=== PATIENT | female | born 1950 | race African-American/Black ===

== ENCOUNTER 2016-10-10 14:38 | Inpatient (IN) | payer OTHER ==
[2016-10-10] MEDS ORDERED: ALBUTEROL SO4 2.5/IPRATROPIUM 0.5 INH SOL 3 ML VIAL.NEB. NEB ONE (15:01)
[2016-10-10] MEDS ORDERED: methylPREDNISolone NA SUCC 125 MG/2 ML VIAL IVPB ONE (15:11)
[2016-10-10] MEDS ORDERED: ALBUTEROL SO4 0.083% IH SOL 2.5 MG/3 ML VIAL.NEB. NEB ONE ×2 (15:11→15:25)
[2016-10-10] MEDS ORDERED: methylPREDNISolone NA SUCC 125 MG/2 ML VIAL ONE (15:23)
[2016-10-10 15:49] LABS: BASOPHIL 0.6 % (0-2.0); EOSINOPHIL 0.4 % (0-4.5); MCHC 31.2 g/dl (32.0-36.0); MEAN PLT VOLUME 8.6 fl (7.5-11.1); NEUTROPHILS 85.2 % (42.8-82.8); PLATELET COUNT 299 K/MM3 (134-434); RDW 16.7 % (11.6-15.6); WHITE BLOOD COUNT 10.2 K/mm3 (4.0-10.0)
[2016-10-10 16:00] LABS: INR 1.2 (0.82-1.09); PROTHROMBIN TIME (PATIENT) 13.2 SEC (9.98-11.88)
[2016-10-10 16:09] LABS: ARTERIAL BLD GAS O2 SATURATION 98.4 % (90-98.9); ARTERIAL BLOOD GAS BASE EXCESS -0.2 meq/l (-2-2); ARTERIAL BLOOD GAS HCO3 23.2 meq/L (22-26); ARTERIAL BLOOD GAS pH 7.43 (7.35-7.45)
[2016-10-10 16:10] LABS: ALLENS TEST POSITIVE; METHEMOGLOBIN 0.5 % (0.4-1.5)
[2016-10-10 16:11] LABS: ART PUNCT SITE RIGHT RADIAL; LPM/O2% 2 LPM; PT. ON O2? YES; TYPE OF O2 NASAL CANNULA
[2016-10-10 16:14] LABS: ALBUMIN 3.7 g/dl (3.4-5.0); ALK PHOS 136 U/L (45-117); ANION GAP 9 (8-16); BILIRUBIN,TOTAL 0.3 mg/dL (0.2-1.0); CALCIUM 9.4 mg/dL (8.5-10.1); CO2 28 mmol/L (21-32); CREATININE 1.5 mg/dL (0.55-1.02); GLUCOSE,RANDOM 110 mg/dL (74-106); SGOT/AST 22 U/L (15-37); SGPT/ALT 20 U/L (12-78)
[2016-10-10] MEDS ORDERED: SODIUM CHLORIDE 1,000 ML IV STA (17:21)
--- NOTE | 2016-10-10 18:10 | PDOC ---
History of Present Illness - General History Source: Patient Exam Limitations: No Limitations - History of Present Illness Initial Comments: 10/10/16 18:12 The patient is a 66 year old female with a significant past medical history of lung cancer (RUL), diabetes, and hypertension, presenting to the Emergency Department with shortness of breath. The patient reports that she was seeing Dr. Contreras in respiratory today when her O2 sats dropped into the 60s and was sent down to the ER. The patient reports that she was first diagnosed with lung cancer in 2013, and had chemotherapy and radiation. 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 She reports that this is her third diagnosis, which is being treated with immunotherapy every two weeks since July. The patient states that she has not felt well all week, and states that she cannot walk around her house without being short of breath. She admits to using albuterol, advair, and a nebulizer at home to help her breath. She admits to a cough. The patient denies chest pain, or palpitations. Patient denies fever, or chills. Patient denies lightheadedness, or headache. <Adeola Healy - Last Filed: 10/10/16 18:18> <Delonte Norton - Last Filed: 10/10/16 18:38> - General Chief Complaint: Respiratory Stated Complaint: SOB Time Seen by Provider: 10/10/16 15:10 Past History <Adeola Healy - Last Filed: 10/10/16 18:18> - Past Medical History Cancer: Yes (RUL, CHEMO/RADIATION COMPLETED SPRING 2014.) Diabetes: Yes HTN: Yes - Immunization History Td Vaccination: Yes Immunization Up to Date: Yes - Psycho/Social/Smoking Cessation Hx Anxiety: No Suicidal Ideation: No Smoking History: Former smoker Have you smoked in the past 12 months: No If you are a former smoker, when did you quit?: 1991 Information on smoking cessation initiated: No Hx Alcohol Use: No Drug/Substance Use Hx: No Substance Use Type: None <Delonte Norton - Last Filed: 10/10/16 18:38> - Past Medical History Allergies/Adverse Reactions: Allergies Allergy/AdvReac Type Severity Reaction Status Date / Time No Known Allergies Allergy Verified 09/26/14 10:39 Home Medications: Ambulatory Orders Albuterol Sulfate Inhaler - [Ventolin HFA Inhaler -] 1 - 2 inh PO Q4H 09/26/14 Sitagliptin Phosphate [Januvia] 100 mg PO DAILY 09/26/14 Spironolactone 25 mg PO DAILY 09/26/14 Verapamil HCl 240 mg PO DAILY 09/26/14 Acetaminophen W/ Codeine #3 [Tylenol # 3 -] 1 tab PO PRN 10/10/16 Aspirin [ASA -] 81 mg PO DAILY 10/10/16 Atorvastatin Ca [Lipitor] 10 mg PO HS 10/10/16 Gabapentin 300 mg PO DAILY 10/10/16 Losartan Potassium 25 mg PO DAILY 10/10/16 Montelukast Na [Singulair -] 10 mg PO HS 10/10/16 Ondansetron [Zofran -] 8 mg PO PRN 10/10/16 Salmeterol/Fluticasone [Advair 500Mcg/50Mcg -] 1 inh IH BID 10/10/16 Review of Systems - Review of Systems Able to Perform ROS?: Yes Comments:: 10/10/16 18:12 GENERAL/CONSTITUTIONAL: No fever or chills. No weakness. HEAD, EYES, EARS, NOSE AND THROAT: No change in vision. No ear pain or discharge. No sore throat. CARDIOVASCULAR: No chest pain. RESPIRATORY: + shortness of breath. + cough. + dyspnea on exertion. No hemoptysis. GASTROINTESTINAL: No nausea, vomiting, diarrhea or constipation. GENITOURINARY: No dysuria, frequency, or change in urination. MUSCULOSKELETAL: No joint or muscle swelling or pain. No neck or back pain. SKIN: No rash NEUROLOGIC: No headache, vertigo, loss of consciousness, or change in strength/ sensation. ENDOCRINE: No increased thirst. No abnormal weight change. HEMATOLOGIC/LYMPHATIC: No anemia, easy bleeding, or history of blood clots. ALLERGIC/IMMUNOLOGIC: No hives or skin allergy. <Adeola Healy - Last Filed: 10/10/16 18:18> *Physical Exam - Vital Signs Last Vital Signs Temp Pulse Resp BP Pulse Ox 98.6 F 91 H 20 122/89 99 10/10/16 14:44 10/10/16 16:26 10/10/16 16:26 10/10/16 16:26 10/10/16 16:26 - Physical Exam Comments: 10/10/16 18:12 GENERAL: Appears comfortable but short of breath, not conversationally dyspneic. Awake, alert, and fully oriented HEAD: No signs of trauma EYES: PERRLA, EOMI, sclera anicteric, conjunctiva clear ENT: Auricles normal inspection, hearing grossly normal, nares patent, oropharynx clear without exudates. Moist mucosa NECK: Normal ROM, supple, no lymphadenopathy, JVD, or masses LUNGS: Inspiratory and expiratory wheezing throughout bilaterally. Clear to auscultation bilaterally. No crackles HEART: Regular rate and rhythm, normal S1 and S2, no murmurs, rubs or gallops ABDOMEN: Soft, nontender, normoactive bowel sounds. No guarding, no rebound. No masses EXTREMITIES: Normal range of motion, no edema. No clubbing or cyanosis. No cords, erythema, or tenderness NEUROLOGICAL: Cranial nerves II through XII grossly intact. Normal speech, normal gait SKIN: Warm, Dry, normal turgor, no rashes or lesions noted. <Adeola Healy - Last Filed: 10/10/16 18:18> - Vital Signs Last Vital Signs Temp Pulse Resp BP Pulse Ox 98.6 F 91 H 20 122/89 99 10/10/16 14:44 10/10/16 16:26 10/10/16 16:26 10/10/16 16:26 10/10/16 16:26 <Delonte Norton - Last Filed: 10/10/16 18:38> ED Treatment Course - LABORATORY CBC & Chemistry Diagram: 10/10/16 15:41 10/10/16 15:41 - ADDITIONAL ORDERS Additional order review: Laboratory Results 10/10/16 10/10/16 10/10/16 16:02 15:41 15:41 INR 1.20 H Puncture Site Right radial ABG pH 7.43 ABG pCO2 at Pt Temp 35.6 ABG pO2 at Pt Temp 101.0 H ABG HCO3 23.2 ABG O2 Sat (Measured) 98.4 ABG O2 Content 15.6 ABG Base Excess -0.2 Yehuda Test Positive Carboxyhemoglobin 1.8 Methemoglobin 0.5 O2 Delivery Device Nasal cannula Oxygen Flow Rate 2 lpm PEEP 0.0 Sodium 141 Potassium 4.1 Chloride 104 Carbon Dioxide 28 Anion Gap 9 BUN 39 H Creatinine 1.5 H Creat Clearance w eGFR 34.64 Random Glucose 110 H Calcium 9.4 Total Bilirubin 0.3 D AST 22 D ALT 20 D Alkaline Phosphatase 136 H D Total Protein 7.0 Albumin 3.7 D 10/10/16 15:41 RBC 4.72 MCV 77.0 L MCHC 31.2 L RDW 16.7 H MPV 8.6 Neutrophils % 85.2 H Lymphocytes % 3.8 L D Monocytes % 10.0 Eosinophils % 0.4 D Basophils % 0.6 D - RADIOLOGY Radiograph Interpretation: 10/10/16 18:[address] As reviewed by Dr. Beto Sherman IMPRESSION: No evidence of PE Findings consistent with recurrent malignancy within the right lung apex with extensive pulmonary metastases throughout both lungs. There is also a large right pleural effusion. - Medications Given in the ED: ED Medications Discontinued Medications Generic Name Dose Route Start Last Admin Trade Name Zackaryq PRN Reason Stop Dose Admin Albuterol Sulfate 2 amp 10/10/16 15:11 10/10/16 15:20 Ventolin 0.083% Nebulizer Soln - NEB 10/10/16 15:12 2 amp ONCE ONE Administration Methylprednisolone Sodium Succinate 125 mg 10/10/16 15:11 10/10/16 15:39 Solu-Medrol - IVPB 10/10/16 15:12 125 mg ONCE ONE Administration <Adeola Healy - Last Filed: 10/10/16 18:18> - LABORATORY CBC & Chemistry Diagram: 10/10/16 15:41 10/10/16 15:41 - ADDITIONAL ORDERS Additional order review: Laboratory Results 10/10/16 10/10/16 10/10/16 16:02 15:41 15:41 INR 1.20 H Puncture Site Right radial ABG pH 7.43 ABG pCO2 at Pt Temp 35.6 ABG pO2 at Pt Temp 101.0 H ABG HCO3 23.2 ABG O2 Sat (Measured) 98.4 ABG O2 Content 15.6 ABG Base Excess -0.2 Yehuda Test Positive Carboxyhemoglobin 1.8 Methemoglobin 0.5 O2 Delivery Device Nasal cannula Oxygen Flow Rate 2 lpm PEEP 0.0 Sodium 141 Potassium 4.1 Chloride 104 Carbon Dioxide 28 Anion Gap 9 BUN 39 H Creatinine 1.5 H Creat Clearance w eGFR 34.64 Random Glucose 110 H Calcium 9.4 Total Bilirubin 0.3 D AST 22 D ALT 20 D Alkaline Phosphatase 136 H D Total Protein 7.0 Albumin 3.7 D 10/10/16 15:41 RBC 4.72 MCV 77.0 L MCHC 31.2 L RDW 16.7 H MPV 8.6 Neutrophils % 85.2 H Lymphocytes % 3.8 L D Monocytes % 10.0 Eosinophils % 0.4 D Basophils % 0.6 D - RADIOLOGY Radiology Studies Ordered: Category Date Time Status CHEST CTA [CT] Stat CT Scan 10/10/16 15:13 Completed CXRPORT [CHEST X-RAY PORTABLE*] [RAD] Stat Radiology 10/10/16 15:13 Completed - Medications Given in the ED: ED Medications Discontinued Medications Generic Name Dose Route Start Last Admin Trade Name Freq PRN Reason Stop Dose Admin Albuterol Sulfate 2 amp 10/10/16 15:11 10/10/16 15:20 Ventolin 0.083% Nebulizer Soln - NEB 10/10/16 15:12 2 amp ONCE ONE Administration Methylprednisolone Sodium Succinate 125 mg 10/10/16 15:11 10/10/16 15:39 Solu-Medrol - IVPB 10/10/16 15:12 125 mg ONCE ONE Administration <Delonte Norton - Last Filed: 10/10/16 18:38> Medical Decision Making - Medical Decision Making 10/10/16 18:18 Dr. Bernard returned microblog at 6:[address] Norton about the patient's care. <Adeola Healy - Last Filed: 10/10/16 18:18> *DC/Admit/Observation/Transfer - Attestations Scribe Attestion: 10/10/16 18:13 Documentation prepared by Adeola Healy, acting as medical staff assistant for Delonte Norton DO. <Adeola Healy - Last Filed: 10/10/16 18:18> - Discharge Dispostion Admit: Yes - Attestations Physician Attestion: 10/10/16 18:10 I, Dr. Delonte Norton, attest that this document has been prepared under my direction and personally reviewed by me in its entirety. I further attest, that it accurately reflects all work, treatment, procedures and medical decision -making performed by me. <Delonte Norton - Last Filed: 10/10/16 18:38> Diagnosis at time of Disposition: Hypoxia, Pleural effusion on right Secondary carcinoma of lung Qualifiers: Laterality: unspecified laterality Qualified Code(s): C78.00 - Secondary malignant neoplasm of unspecified lung - Discharge Dispostion Condition at time of disposition: Unchanged/Unknown - Referrals Referrals: Jesus Orellana [Primary Care Provider] -
[2016-10-10] MEDS ORDERED: HEPARIN NA (PORCINE) 5,000 UNITS/ML 1ML VIAL SQ ONE (20:07)
[2016-10-10] MEDS ORDERED: ALBUTEROL SO4 0.083% IH SOL 2.5 MG/3 ML VIAL.NEB. NEB PRN (20:07)
[2016-10-10] MEDS ORDERED: ONDANSETRON 8 MG TABLET (FP) PO PRN (20:15)
[2016-10-10] MEDS ORDERED: ALBUTEROL SO4 6.7 GM HFA INHALER IH SCH (20:15)
--- NOTE | 2016-10-10 20:48 | HP ---
CHIEF COMPLAINT:sob PCP:Dr. Pope HISTORY OF PRESENT ILLNESS: 66 year old female with a significant current medical history of metastatic lung cancer, sent over from Dr. Contreras office. Patient was in acute respiratory failure, oxygen saturation in the 60s. Patient states that for the past week she has been progressively short of breath, worse with exertion. She also admits to wheezing and cough with yellow sputum production. She denies fever, chill, hemoptysis. She was has been using her albuterol inhalers more frequently the past few days and Tylenol with codeine for pain. She was diagnosed with Lung Ca in 2013, treated with chemotherapy and radiation therapy. Last chemotherapy treatment was on July 18. 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 Ms. Carter admits to 20lb weight loss since December. She is currently getting treated with immunotherapy every 2 weeks. Her oncologist name is Dr. Thompson at [facility]. Chest CTA in today revealed multiple ill defined masses suspicious of malignancy of bilateral lobes when compared to previous. There was also a large right pleural effusion and small pericardial effusion. Recent Travel: no PAST MEDICAL HISTORY: Diabetes Mellitus type II, hypertension PAST SURGICAL HISTORY: Social History: Smoking:no Alcohol:no Drugs: no Family History: Allergies No Known Allergies Allergy (Verified 09/26/14 10:39) HOME MEDICATIONS: Home Medications Medication Instructions Recorded Albuterol Sulfate Inhaler - 1 - 2 inh PO Q4H 09/26/14 [Ventolin HFA Inhaler -] Sitagliptin Phosphate [Januvia] 100 mg PO DAILY 09/26/14 Spironolactone 25 mg PO DAILY 09/26/14 Verapamil HCl 240 mg PO DAILY 09/26/14 Acetaminophen W/ Codeine #3 1 tab PO PRN 10/10/16 [Tylenol # 3 -] Aspirin [ASA -] 81 mg PO DAILY 10/10/16 Atorvastatin Ca [Lipitor] 10 mg PO HS 10/10/16 Gabapentin 300 mg PO DAILY 10/10/16 Losartan Potassium 25 mg PO DAILY 10/10/16 Montelukast Na [Singulair -] 10 mg PO HS 10/10/16 Ondansetron [Zofran -] 8 mg PO PRN 10/10/16 Salmeterol/Fluticasone [Advair 1 inh IH BID 10/10/16 500Mcg/50Mcg -] REVIEW OF SYSTEMS CONSTITUTIONAL: Positive: generalized weakness, malaise, loss of appetite, weight change Absent: fever, chills, diaphoresis, HEENT: Absent: rhinorrhea, nasal congestion, throat pain, throat swelling, difficulty swallowing, mouth swelling, ear pain, eye pain, visual changes CARDIOVASCULAR: Absent: chest pain, syncope, palpitations, irregular heart rate, lightheadedness , peripheral edema RESPIRATORY: Positive:cough, shortness of breath, dyspnea with exertion, orthopnea, wheezing, Absent: stridor, hemoptysis GASTROINTESTINAL: Absent: abdominal pain, abdominal distension, nausea, vomiting, diarrhea, constipation, melena, hematochezia GENITOURINARY: Absent: dysuria, frequency, urgency, hesitancy, hematuria, flank pain, genital pain MUSCULOSKELETAL: Absent: myalgia, arthralgia, joint swelling, back pain, neck pain SKIN: Absent: rash, itching, pallor HEMATOLOGIC/IMMUNOLOGIC: Absent: easy bleeding, easy bruising, lymphadenopathy, frequent infections ENDOCRINE: Absent: unexplained weight gain, unexplained weight loss, heat intolerance, cold intolerance NEUROLOGIC: Absent: headache, focal weakness or paresthesias, dizziness, unsteady gait, seizure, mental status changes, bladder or bowel incontinence PSYCHIATRIC: Absent: anxiety, depression, suicidal or homicidal ideation, hallucinations. PHYSICAL EXAMINATION Vital Signs - 24 hr 10/10/16 10/10/16 10/10/16 14:44 14:57 16:26 Temperature 98.6 F Pulse Rate 94 H Pulse Rate [ 91 H Apical] Respiratory 22 20 Rate Blood Pressure 130/86 Blood Pressure 122/89 [Right Arm] O2 Sat by Pulse 75 L 95 99 Oximetry (%) GENERAL: Awake, alert, and fully oriented, in no acute distress, on 2L of NC HEAD: Normal with no signs of trauma. EYES: Pupils equal, round and reactive to light, extraocular movements intact, sclera anicteric, conjunctiva clear. No lid lag. LUNGS:anterior and posterior wheezing with scattered rhonchi HEART: Regular rate and rhythm, normal S1 and S2 without murmur, rub or gallop. ABDOMEN: Soft, nontender, not distended, normoactive bowel sounds, no guarding, no rebound, no masses. No hepatomegaly or splenomegaly. MUSCULOSKELETAL: Normal range of motion at all joints. No bony deformities or tenderness. No CVA tenderness. UPPER EXTREMITIES: 2+ pulses, warm, well-perfused. No cyanosis. No clubbing. No peripheral edema. LOWER EXTREMITIES: 2+ pulses, warm, well-perfused. No calf tenderness. No peripheral edema. NEUROLOGICAL: Cranial nerves II-XII intact. Normal speech. Normal gait. PSYCHIATRIC: Cooperative. Good eye contact. Appropriate mood and affect. SKIN: Warm, dry, normal turgor, no rashes or lesions noted, normal capillary refill. Laboratory Results - last 24 hr 10/10/16 10/10/16 10/10/16 15:41 15:41 15:41 WBC 10.2 H D RBC 4.72 Hgb 11.3 Hct 36.3 MCV 77.0 L MCHC 31.2 L RDW 16.7 H Plt Count 299 D MPV 8.6 Neutrophils % 85.2 H Lymphocytes % 3.8 L D Monocytes % 10.0 Eosinophils % 0.4 D Basophils % 0.6 D INR 1.20 H Puncture Site ABG pH ABG pCO2 at Pt Temp ABG pO2 at Pt Temp ABG HCO3 ABG O2 Sat (Measured) ABG O2 Content ABG Base Excess Yehuda Test Carboxyhemoglobin Methemoglobin O2 Delivery Device Oxygen Flow Rate PEEP Sodium 141 Potassium 4.1 Chloride 104 Carbon Dioxide 28 Anion Gap 9 BUN 39 H Creatinine 1.5 H Creat Clearance w eGFR 34.64 Random Glucose 110 H Calcium 9.4 Total Bilirubin 0.3 D AST 22 D ALT 20 D Alkaline Phosphatase 136 H D Total Protein 7.0 Albumin 3.7 D 10/10/16 16:02 WBC RBC Hgb Hct MCV MCHC RDW Plt Count MPV Neutrophils % Lymphocytes % Monocytes % Eosinophils % Basophils % INR Puncture Site Right radial ABG pH 7.43 ABG pCO2 at Pt Temp 35.6 ABG pO2 at Pt Temp 101.0 H ABG HCO3 23.2 ABG O2 Sat (Measured) 98.4 ABG O2 Content 15.6 ABG Base Excess -0.2 Yehuda Test Positive Carboxyhemoglobin 1.8 Methemoglobin 0.5 O2 Delivery Device Nasal cannula Oxygen Flow Rate 2 lpm PEEP 0.0 Sodium Potassium Chloride Carbon Dioxide Anion Gap BUN Creatinine Creat Clearance w eGFR Random Glucose Calcium Total Bilirubin AST ALT Alkaline Phosphatase Total Protein Albumin IMAGING: CTA:IMPRESSION: 1. No evidence of pulmonary embolism. 2. Findings consistent with recurrent malignancy within the right lung apex with extensive pulmonary metastases throughout both lungs. There is also a large right pleural effusion. ASSESSMENT/PLAN: 66 year old female with metastatic lung cancer presents to the emergency room with shortness of breath and hypoxia. Found to have multiple masses on and chest CTA along with large right pleural effusion. #acute hypoxic respiratory failure secondary to lung Ca and pleural effusion: -NC 2L now sating 95% -chest CTA reviewed -albuterol nebs q4h shed and q6h prn -singulair 10mg po HS -Advair 500mcg/50mcg 1inh BID -heme/onc consulted -IR consulted for pleural effusion drain; fluid analysis/cytology -pulmonary consulted #pericardial effusion: -echocardiogram #Chronic kidney disease Stage 3B: -BUN 39 Cr 1.5; with Creatinine Clearance 34 -not in a state of acute renal failure #diabetes mellitus II: -insulin SS -BGM ACHS #Hypertension: -verapamil hcl 240mh po daily #diabetic neuropathy: -gabpentin 300mg po daily FEN: Fluids: po Electrolytes wnl Diet: diabetic diet VTE prophylaxis: heparin sq 1 time because she will likely have pleural effusion drained tomorrow IR Disposition: med surg; continue current management; Problem List - Problem (1) Acute respiratory failure with hypoxia Code(s): J96.01 - ACUTE RESPIRATORY FAILURE WITH HYPOXIA (2) Metastatic lung carcinoma Code(s): C78.00 - SECONDARY MALIGNANT NEOPLASM OF UNSPECIFIED LUNG Qualifiers : Laterality: unspecified laterality Qualified Code(s): C78.00 - Secondary malignant neoplasm of unspecified lung (3) Pleural effusion, right Code(s): J90 - PLEURAL EFFUSION, NOT ELSEWHERE CLASSIFIED (4) Diabetes 1.5, managed as type 2 Code(s): E10.9 - TYPE 1 DIABETES MELLITUS WITHOUT COMPLICATIONS (5) Hypertension Code(s): I10 - ESSENTIAL (PRIMARY) HYPERTENSION (6) Chronic kidney disease (CKD) Code(s): N18.9 - CHRONIC KIDNEY DISEASE, UNSPECIFIED Visit type - Emergency Visit Emergency Visit: Yes ED Registration Date: 10/10/16 Care time: The patient presented to the Emergency Department on the above date and was hospitalized for further evaluation of their emergent condition. - New Patient This patient is new to me today: Yes Date on this admission: 10/11/16 - Critical Care Critical Care patient: No
[2016-10-10] MEDS ORDERED: MONTELUKAST NA 10 MG TABLET ONE (21:55)
[2016-10-10] MEDS ORDERED: INSULIN (NOVOLOG) ASPART 100 UNITS/ML 10ML VIAL ONE (22:22)
[2016-10-10] MEDS: ATORVASTATIN CA 10 MG TABLET (FP) PO SCH (23:05)
[2016-10-10] MEDS: INSULIN SLIDING SCALE (NOVOLOG) 1 VIAL SQ SCH (23:05)
[2016-10-10] MEDS: MONTELUKAST NA 10 MG TABLET PO SCH (23:06)
[2016-10-10] MEDS: ACETAMINOPHEN WITH CODEINE 300MG/30MG TABLET PO PRN (23:07)
[2016-10-10] MEDS: BUDESONIDE/FORMETEROL FUMARATE 160/4.5 mcg INHALER IH SCH (23:07)
--- NOTE | 2016-10-10 23:19 | PN ---
<Alivia Singh - Last Filed: 10/10/16 23:19> Teaching Attending Note Name of Resident: Celeste Conklin (]) AT <Shiloh Buckner - Last Filed: 10/10/16 23:21> Teaching Attending Note ATTENDING PHYSICIAN STATEMENT I saw and evaluated the patient. I reviewed the resident's note and discussed the case with the resident. I agree with the resident's findings and plan as documented. SUBJECTIVE: 66 yo F presents with SOB for 1 week. The patient reports that she was seeing Dr. Contreras in respiratory today when her O2 sats dropped into the 60s and was sent down to the ER. Patient reports that she is unable to walk around her house without feeling SOB. Patients first lung CA diagnosis was in 2013 and received chemotherapy and radiation treatments.The patient states her second CA diagnosis was in 2014 and was in her brain and was also treated with radiation. She reports that this is her third CA diagnosis and that she is receiving immunotherapy treatments every two weeks since July,. Patient also endorses cough. Patient states she never had fluid drained from her lungs before. Patient endorses foot and knee cramping that wakes her up at night. PMHx: Lung CA in RUL (2013), HTN, DM, asthma, COPD Social Hx: Smoked for 20 year, quit in 1991. OBJECTIVE: Last Vital Signs Temp Pulse Resp BP Pulse Ox 98.6 F 91 H 20 122/89 99 10/10/16 14:44 10/10/16 16:26 10/10/16 16:26 10/10/16 16:26 10/10/16 16:26 GENERAL: Awake, alert, and fully oriented, in no acute distress HEENT: Atraumatic. PERRLA, EOMI. Moist mucosa. No JVD LUNGS: No distress, speaks full sentences, anterior and posterior wheezing with scattered rhonchi. HEART: Regular rate and rhythm, normal S1 and S2, no murmurs, rubs or gallops, peripheral pulses normal and equal bilaterally. ABDOMEN: Soft, nontender, normoactive bowel sounds. No guarding, no rebound. No masses EXTREMITIES: Normal inspection, Normal range of motion, no edema. No clubbing or Cyanosis. NEUROLOGICAL: Cranial nerves II through XII grossly intact. Normal speech, normal gait, no focal sensorimotor deficits SKIN: Warm, Dry, normal turgor, no rashes or lesions noted. CBCD WBC 10.2 K/mm3 (4.0-10.0) H D 10/10/16 15:41 RBC 4.72 M/mm3 (3.60-5.2) 10/10/16 15:41 Hgb 11.3 GM/dL (10.7-15.3) 10/10/16 15:41 Hct 36.3 % (32.4-45.2) 10/10/16 15:41 MCV 77.0 fl (80-96) L 10/10/16 15:41 MCHC 31.2 g/dl (32.0-36.0) L 10/10/16 15:41 RDW 16.7 % (11.6-15.6) H 10/10/16 15:41 Plt Count 299 K/MM3 (134-434) D 10/10/16 15:41 MPV 8.6 fl (7.5-11.1) 10/10/16 15:41 CMP Sodium 141 mmol/L (136-145) 10/10/16 15:41 Potassium 4.1 mmol/L (3.5-5.1) 10/10/16 15:41 Chloride 104 mmol/L (98-107) 10/10/16 15:41 Carbon Dioxide 28 mmol/L (21-32) 10/10/16 15:41 Anion Gap 9 (8-16) 10/10/16 15:41 BUN 39 mg/dL (7-18) H 10/10/16 15:41 Creatinine 1.5 mg/dL (0.55-1.02) H 10/10/16 15:41 Creat Clearance w eGFR 34.64 (>60) 10/10/16 15:41 Calcium 9.4 mg/dL (8.5-10.1) 10/10/16 15:41 Total Bilirubin 0.3 mg/dL (0.2-1.0) D 10/10/16 15:41 AST 22 U/L (15-37) D 10/10/16 15:41 ALT 20 U/L (12-78) D 10/10/16 15:41 Alkaline Phosphatase 136 U/L (45-117) H D 10/10/16 15:41 Total Protein 7.0 g/dl (6.4-8.2) 10/10/16 15:41 Albumin 3.7 g/dl (3.4-5.0) D 10/10/16 15:41 ASSESSMENT AND PLAN: 1.) Pleural effusion -NPO -IR consult in AM for drainage of pleural effusion -Get pleural fluid analysis cytology -LDH -Resume home meds -Echo in AM Documentation is prepared by Shiloh Buckner acting as hospital medical biller for Alivia Singh M.D.
[2016-10-11 06:17] LABS: BASOPHIL 0.1 % (0-2.0); MCH 23.5 pg (25.7-33.7); MCHC 30.4 g/dl (32.0-36.0); MEAN CELL VOLUME 77.4 fl (80-96); MEAN PLT VOLUME 8.6 fl (7.5-11.1); NEUTROPHILS 96.5 % (42.8-82.8); PLATELET COUNT 300 K/MM3 (134-434); RDW 16.5 % (11.6-15.6); WHITE BLOOD COUNT 11.2 K/mm3 (4.0-10.0)
[2016-10-11] MEDS: INSULIN SLIDING SCALE (NOVOLOG) 1 VIAL SQ SCH ×3 (06:20→21:42)
[2016-10-11] MEDS ORDERED: PIPERACILLIN/TAZOB 3.375 GM 50 ML IVPB ONE (06:22)
[2016-10-11 06:38] LABS: ALBUMIN 3.5 g/dl (3.4-5.0); ALK PHOS 136 U/L (45-117); ANION GAP 8 (8-16); BILIRUBIN,TOTAL 0.3 mg/dL (0.2-1.0); CALCIUM 8.8 mg/dL (8.5-10.1); CO2 27 mmol/L (21-32); CREATININE 1.2 mg/dL (0.55-1.02); GLUCOSE,RANDOM 144 mg/dL (74-106); SGOT/AST 20 U/L (15-37); SGPT/ALT 18 U/L (12-78)
[2016-10-11] MEDS: SPIRONOLACTONE 25 MG TABLET (FP) PO SCH (09:28)
[2016-10-11] MEDS: VERAPAMIL HCL 240 MG E.R. TABLET (FP) PO SCH (09:28)
[2016-10-11] MEDS: LOSARTAN POTASSIUM 25 MG TABLET PO SCH (09:28)
[2016-10-11] MEDS: ASPIRIN 81 MG CHEWABLE TABLETS PO SCH (09:29)
[2016-10-11] MEDS: ALBUTEROL SO4 0.083% IH SOL 2.5 MG/3 ML VIAL.NEB. NEB SCH ×2 (09:30→23:50)
[2016-10-11] MEDS ORDERED: GABAPENTIN 300 MG CAPSULE (FP) PO SCH (10:00)
--- NOTE | 2016-10-11 10:33 | EKG ---
Test Reason : Blood Pressure : / mmHG Vent. Rate : 088 BPM Atrial Rate : 088 BPM P-R Int : 142 ms QRS Dur : 076 ms QT Int : 380 ms P-R-T Axes : 059 090 030 degrees QTc Int : 459 ms NORMAL SINUS RHYTHM POSSIBLE LEFT ATRIAL ENLARGEMENT RIGHTWARD AXIS NONSPECIFIC T WAVE ABNORMALITY ABNORMAL ECG Confirmed by BROOKE MORGAN MD ([id number]) on 10/11/2016 10:33:09 AM Referred By: Confirmed By:BROOKE MORGAN MD
--- NOTE | 2016-10-11 12:11 | PN ---
Physical Exam: SUBJECTIVE: Patient seen and examined by me at bedside. Patient states she is feeling well and offers no complaints. When asking her what happened patient states she was at Dr. Contreras's office and he noticed her oxygen was low in the 60 's. When asking if she felt short of breath before coming here she reports it felt like it was her normal asthma and nothing too significant. Otherwise, patient denies fever, chills, nausea, vomiting, chest pain, palpitations, shortness of breath, headaches, dizziness, abdominal pain, diarrhea. OBJECTIVE: Vital Signs Period Temp Pulse Resp BP Sys/Soto Pulse Ox Last 24 Hr 98.5 F-98.7 F 87-93 16-18 125-149/80-87 95-98 GENERAL: The patient is awake, alert, and fully oriented, in no acute distress. HEAD: Normal with no signs of trauma. EYES: PERRL, extraocular movements intact, sclera anicteric, conjunctiva clear. ENT: Oropharynx clear without exudates, moist mucous membranes. NECK: No JVD or bruits appreciated LUNGS: Bilateral wheezing and rhonchi throughout lung bases. On 2L NC saturating at 93%. In no respiratory distress and no use of accessory muscles. HEART: Regular rate and rhythm,Normal S1 and S2, without murmur, rub or gallop. ABDOMEN: Soft, nontender, nondistended, normoactive bowel sounds, no guarding, EXTREMITIES: 2+ pulses, warm, well-perfused, no edema. NEUROLOGICAL: Normal speech. No focal deficits. No facial droop Laboratory Results - last 24 hr 10/10/16 10/11/16 10/11/16 22:18 06:05 06:05 WBC 11.2 H RBC 4.77 Hgb 11.2 Hct 36.9 MCV 77.4 L MCHC 30.4 L RDW 16.5 H Plt Count 300 MPV 8.6 Neutrophils % 96.5 H Lymphocytes % 2.0 L D Monocytes % 1.4 L D Eosinophils % 0.0 D Basophils % 0.1 Sodium 142 Potassium 5.1 D Chloride 107 Carbon Dioxide 27 Anion Gap 8 BUN 30 H D Creatinine 1.2 H Creat Clearance w eGFR 44.81 POC Glucometer [phone] Random Glucose 144 H D Calcium 8.8 Total Bilirubin 0.3 AST 20 ALT 18 Alkaline Phosphatase 136 H Total Protein 7.0 Albumin 3.5 Active Medications Generic Name Dose Route Start Last Admin Trade Name Freq PRN Reason Stop Dose Admin Acetaminophen/Codeine Phosphate 1 tab 10/10/16 20:15 10/10/16 23:07 Tylenol # 3 - PO 10/13/16 20:14 1 tab Q6H PRN Administration Albuterol Sulfate 1 amp 10/10/16 20:07 Ventolin 0.083% Nebulizer Soln - NEB Q4H PRN SHORT OF BREATH/WHEEZING Albuterol Sulfate 1 amp 10/11/16 00:00 10/11/16 09:30 Ventolin 0.083% Nebulizer Soln - NEB 1 amp QIDR SAEED Administration Aspirin 81 mg 10/11/16 10:00 10/11/16 09:29 Asa - PO 81 mg DAILY SAEED Administration Atorvastatin Calcium 10 mg 10/10/16 22:00 10/10/16 23:05 Lipitor - PO 10 mg HS SAEED Administration Budesonide/Formoterol Fumarate 2 puff 10/10/16 22:00 10/10/16 23:07 Symbicort 160/4.5mcg - IH 2 puff BID SAEED Administration Gabapentin 300 mg 10/11/16 10:00 10/11/16 09:28 Neurontin - PO 300 mg DAILY SAEED Administration Insulin Aspart 1 vial 10/10/16 22:00 10/11/16 06:20 Novolog Vial Sliding Scale - SQ 2 units ACHS SAEED Administration Protocol Losartan Potassium 25 mg 10/11/16 10:00 10/11/16 09:28 Cozaar - PO 25 mg DAILY SAEED Administration Montelukast Sodium 10 mg 10/10/16 22:00 10/10/16 23:06 Singulair - PO 10 mg HS SAEED Administration Ondansetron HCl 8 mg 10/10/16 20:15 Zofran - PO Q6H PRN Spironolactone 25 mg 10/11/16 10:00 10/11/16 09:28 Aldactone - PO 25 mg DAILY SAEED Administration Verapamil HCl 240 mg 10/11/16 10:00 10/11/16 09:28 Calan Sr - PO 240 mg DAILY SAEED Administration IMAGES Chest/Thorax CTA(10/10/16):1. No evidence of pulmonary embolism. 2. Findings consistent with recurrent malignancy within the right lung apex with extensive pulmonary metastases throughout both lungs. There is also a large right pleural effusion. ASSESSMENT/PLAN: Patient is a 66 year old female with a PMHx of DMII, hypertension, Asthma, CKD, Metastatic lung cancer who was brought over by her production recovery operator for hypoxia and shortness of breath. Patient was found to a right pleural effusion and admitted for further monitoring and management. Acute Hypoxic Respiratory Failure secondary to Right Pleural Effusion- Acute -Patient now saturating 93-95% on 2L NC -Chest CTA revealed recurrent malignancy and right pleural effusion -Continue Albuterol Nebs Q4H SAEED and Q6H PRN -Continue Signulair 10mg po HD -Continue Advair 500mcg/50mcg 1inh BID -Therapeutic IR Thoracocentesis scheduled with fluid analysis/cytology -Pulmonology consult placed Pericardial Effusion- Acute -Found on CT/CXR -Echocardiogram pending Chronic kidney disease Stage 3B- Chornic -BUN 39 Cr 1.5; with Creatinine Clearance 34 on initial presentation -Now BUN 30, Cr 1.2 with Cr clearance of 45 -not in a state of acute renal failure DMII- Controlled -Insulin Sliding Scale -BGM Hypertension- Controlled -Continue Verapamil hcl 240mh po daily Diabetic Neuropathy- Controlled -Continue home medication Gabpentin 300mg po daily F/E/N -On no IV fluids. Patient PO -Electrolytes wnl -Diabetic controlled diet Prophylaxis -Heparin 5000 units SQ BID Disposition -Thoracocentesis today. Continue to monitor and manage Visit type - Emergency Visit Emergency Visit: Yes ED Registration Date: 10/10/16 Care time: The patient presented to the Emergency Department on the above date and was hospitalized for further evaluation of their emergent condition. - New Patient This patient is new to me today: Yes Date on this admission: 10/11/16 - Critical Care Critical Care patient: No
[2016-10-11 12:47] LABS: GLUCOSE,PLEURAL FLUID 96; TOTAL PROTEIN,PLEURAL FLUID 4
[2016-10-11 12:48] LABS: CHLORIDE PLEURAL FLUID 109
[2016-10-11 13:02] LABS: PLEURAL FLUID APPEARANCE CLOUDY; PLEURAL FLUID SOURCE RIGHT PLEURAL
[2016-10-11 13:03] LABS: PLEURAL FLUID COLOR LT YELLOW
[2016-10-11 14:12] LABS: PLEURAL FLUID LYMPHOCYTES 20 %; PLEURAL FLUID MACROPHAGES 4 %; PLEURAL FLUID NEUTROPHIL 3 %
--- NOTE | 2016-10-11 14:43 | CON.PULM ---
Consult Consult Specialty:: PULMONARY Referred by:: FRANKIE Reason for Consultation:: SOB/HYPOXEMIA - History of Present Illness Chief Complaint: SOB/HYPOXEMIA History of Present Illness: The patient is a 66 year old female with a significant past medical history of lung cancer (RUL) (she does not know the type), diabetes, and hypertension, presenting to the Emergency Department with shortness of breath. Sent by Dr. Contreras from his office due to spo2 60's on room air. The patient reports that she was first diagnosed with lung cancer in 2013, and had chemotherapy and radiation. 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 She is now being treated with immunotherapy every two weeks since July. The patient states that she has not felt well all week, and states that she cannot walk around her house without being short of breath. She admits to using albuterol, advair, and a nebulizer at home to help her breath. She admits to a cough. - History Source History Provided By: Patient, Medical Record Limitations to Obtaining History: Poor Historian - Past Medical History MANDREL PRESS HAND: No: Alzheimer's Cardio/Vascular: No: AFIB Pulmonary: Yes: Cancer (lung cancer w brain mets), COPD. No: O2 Dependent Gastrointestinal: No: Ascites Hepatobiliary: No: Cirrhosis Renal/: No: Renal Failure Reproductive: Yes: Postmenopausal ...: No Heme/Onc: Yes: Anemia Infectious Disease: No: AIDS Psych: No: Addictions Musculoskeletal: No: Bursitis ENT: No: Allergic Rhinitis Endocrine: Yes: Diabetes Mellitus Dermatology: No: Other - Alcohol/Substance Use Hx Alcohol Use: No History of Substance Use: reports: None - Smoking History Smoking history: Former smoker Have you smoked in the past 12 months: No If you are a former smoker, when did you quit?: 1991 Home Medications - Allergies Allergies/Adverse Reactions: Allergies Allergy/AdvReac Type Severity Reaction Status Date / Time No Known Allergies Allergy Verified 09/26/14 10:39 - Home Medications Home Medications: Ambulatory Orders Albuterol Sulfate Inhaler - [Ventolin HFA Inhaler -] 1 - 2 inh PO Q4H 09/26/14 Sitagliptin Phosphate [Januvia] 100 mg PO DAILY 09/26/14 Spironolactone 25 mg PO DAILY 09/26/14 Verapamil HCl 240 mg PO DAILY 09/26/14 Acetaminophen W/ Codeine #3 [Tylenol # 3 -] 1 tab PO PRN 10/10/16 Aspirin [ASA -] 81 mg PO DAILY 10/10/16 Atorvastatin Ca [Lipitor] 10 mg PO HS 10/10/16 Gabapentin 300 mg PO DAILY 10/10/16 Losartan Potassium 25 mg PO DAILY 10/10/16 Montelukast Na [Singulair -] 10 mg PO HS 10/10/16 Ondansetron [Zofran -] 8 mg PO PRN 10/10/16 Salmeterol/Fluticasone [Advair 500Mcg/50Mcg -] 1 inh IH BID 10/10/16 Family Disease History - Family Disease History Family History: Unremarkable Review of Systems - Review of Systems Constitutional: reports: Lethargy, Loss of Appetite. denies: Fever Eyes: denies: Blurred Vision HENT: denies: Difficult Swallowing Neck: denies: Decreased ROM Cardiovascular: reports: Shortness of Breath. denies: Chest Pain, Palpitations Respiratory: reports: Cough, Exercise Intolerance, SOB on Exertion. denies: Hemoptysis Gastrointestinal: denies: Abdominal Pain Genitourinary: reports: No Symptoms Breasts: reports: No Symptoms Reported Musculoskeletal: reports: Extremity Pain (01/28 left femur) Integumentary: reports: No Symptoms Neurological: reports: No Symptoms Endocrine: reports: No Symptoms Pain Intensity: 10 Physical Exam Vital Sings: Vital Signs Temperature 97.8 F 10/11/16 13:20 Pulse Rate 81 10/11/16 13:20 Respiratory Rate 16 10/11/16 13:20 Blood Pressure 111/75 10/11/16 13:20 O2 Sat by Pulse Oximetry (%) 94 L 10/11/16 13:20 Constitutional: Yes: Calm Eyes: Yes: EOM Intact HENT: Yes: Normocephalic Neck: Yes: Trachea Midline Cardiovascular: Yes: Regular Rate and Rhythm Respiratory: Yes: Diminished (right base up1/4 lung field), Dullness Gastrointestinal: Yes: Normal Bowel Sounds Renal/: Yes: WNL Extremities: No: Calf Tenderness Edema: No Labs: CBC, BMP 10/11/16 06:05 10/11/16 06:05 ABG Results ABG pH 7.43 (7.35-7.45) 10/10/16 16:02 ABG pCO2 at Pt Temp 35.6 mmHg (35-45) 10/10/16 16:02 ABG pO2 at Pt Temp 101.0 mmHg (80-100) H 10/10/16 16:02 ABG HCO3 23.2 meq/L (22-26) 10/10/16 16:02 ABG O2 Sat (Measured) 98.4 % (90-98.9) 10/10/16 16:02 ABG O2 Content 15.6 % vol (15-22) 10/10/16 16:02 ABG Base Excess -0.2 meq/l (-2-2) 10/10/16 16:02 Imaging - Results Chest X-ray: Image Reviewed Cat Scan: Image Reviewed Problem List - Problems (1) Acute respiratory failure with hypoxia Code(s): J96.01 - ACUTE RESPIRATORY FAILURE WITH HYPOXIA (2) Diabetes 1.5, managed as type 2 Code(s): E10.9 - TYPE 1 DIABETES MELLITUS WITHOUT COMPLICATIONS (3) Hypertension Code(s): I10 - ESSENTIAL (PRIMARY) HYPERTENSION (4) Metastatic lung carcinoma Code(s): C78.00 - SECONDARY MALIGNANT NEOPLASM OF UNSPECIFIED LUNG Qualifiers : Laterality: unspecified laterality Qualified Code(s): C78.00 - Secondary malignant neoplasm of unspecified lung (5) Pleural effusion, right Code(s): J90 - PLEURAL EFFUSION, NOT ELSEWHERE CLASSIFIED Assessment/Plan MULTIPLE LEFT LUNG DENSITIES AND LARGE VOLUME RIGHT PLEURAL EFFUSION SPEAKS FOR PROGRESSION OF UNDERLYING NEOPLASTIC DISEASE CONCERNING FOR BONE METS LEFT FEMUR WITH 10/10 PAIN WILL OBTAIN XRAY WILL NEED HOME O2 UPON DISCHARGE PATIENT IS TREATED AT [facility] WITH DR SPICER (ONCOLOGY) IMMUNOTHERAPY INFUSIONS Q 2WEEKS CHECK FLUID CYTOLOGY WILL FOLLOW Henrietta BAGLEY MD
[2016-10-11 15:24] VITALS: BMI 29.8
[2016-10-11] MEDS: ACETAMINOPHEN WITH CODEINE 300MG/30MG TABLET PO PRN (18:49)
--- NOTE | 2016-10-11 18:55 | PN ---
Teaching Attending Note Name of Resident: Olivia Ayala ATTENDING PHYSICIAN STATEMENT I saw and evaluated the patient. I reviewed the resident's note and discussed the case with the resident. I agree with the resident's findings and plan as documented. SUBJECTIVE: Patient has no complaints. She has a cough and gets short of breath with exertion. OBJECTIVE: Vital Signs Period Temp Pulse Resp BP Sys/Soto Pulse Ox Last 24 Hr 97.7 F-98.7 F 81-93 16-20 109-149/75-87 94-98 HEART: S1S2, RRR LUNGS: Clear with decreased BS at right base ABDOMEN: Soft, non-tender, non-distended, normal BS EXTREMITIES: No edema ASSESSMENT AND PLAN: This is a 66 year old woman with a history of type 2 DM, HTN, asthma, stage 3 CKD, metastatic lung cancer who presented to the ER with shortness of breath and hypoxia. 1. Acute hypoxic respiratory failure secondary to metastatic lung cancer with right pleural effusion - s/p therapeutic thoracentesis today - Continue oxygen 2. Stage 3 CKD - Stable 3. Type 2 DM with diabetic peripheral neuropathy - Continue Novolog sliding scale - Continue Neurontin for neuropathy 4. Hypertension - Continue Cozaar, Aldactone, Calan SR 5. Hyperlipidemia - Continue Lipitor 6. Asthma - Continue Singulair, Symbicort, Albuterol nebs
[2016-10-11] MEDS: ATORVASTATIN CA 10 MG TABLET (FP) PO SCH (21:36)
[2016-10-11] MEDS: GABAPENTIN 300 MG CAPSULE (FP) PO SCH (21:36)
[2016-10-11] MEDS: BUDESONIDE/FORMETEROL FUMARATE 160/4.5 mcg INHALER IH SCH (21:36)
[2016-10-11] MEDS: HEPARIN NA (PORCINE) 5,000 UNITS/ML 1ML VIAL SQ SCH (21:36)
[2016-10-11] MEDS: MONTELUKAST NA 10 MG TABLET PO SCH (21:36)
[2016-10-12] MEDS: ALBUTEROL SO4 0.083% IH SOL 2.5 MG/3 ML VIAL.NEB. NEB SCH ×4 (06:29→23:11)
[2016-10-12] MEDS: INSULIN SLIDING SCALE (NOVOLOG) 1 VIAL SQ SCH ×5 (07:02→21:53)
[2016-10-12] MEDS: ACETAMINOPHEN WITH CODEINE 300MG/30MG TABLET PO PRN ×2 (07:54→21:15)
[2016-10-12 08:23] LABS: MCH 24.4 pg (25.7-33.7); MCHC 31.3 g/dl (32.0-36.0); MEAN PLT VOLUME 8.3 fl (7.5-11.1); PLATELET COUNT 277 K/MM3 (134-434); RDW 17.3 % (11.6-15.6); WHITE BLOOD COUNT 10.9 K/mm3 (4.0-10.0)
[2016-10-12 08:41] LABS: ANION GAP 8 (8-16); CALCIUM 8.7 mg/dL (8.5-10.1); CO2 29 mmol/L (21-32); CREATININE 1.1 mg/dL (0.55-1.02); GLUCOSE,RANDOM 95 mg/dL (74-106)
[2016-10-12] MEDS ORDERED: PT OWN MED DRAWER 7, Y5N ONE (09:04)
[2016-10-12] MEDS: SPIRONOLACTONE 25 MG TABLET (FP) PO SCH (09:09)
[2016-10-12] MEDS: HEPARIN NA (PORCINE) 5,000 UNITS/ML 1ML VIAL SQ SCH ×2 (09:09→21:17)
[2016-10-12] MEDS: VERAPAMIL HCL 240 MG E.R. TABLET (FP) PO SCH (09:09)
[2016-10-12] MEDS: GABAPENTIN 300 MG CAPSULE (FP) PO SCH ×2 (09:09→21:17)
[2016-10-12] MEDS: ASPIRIN 81 MG CHEWABLE TABLETS PO SCH (09:09)
[2016-10-12] MEDS: LOSARTAN POTASSIUM 25 MG TABLET PO SCH (09:24)
[2016-10-12] MEDS: BUDESONIDE/FORMETEROL FUMARATE 160/4.5 mcg INHALER IH SCH ×3 (11:30→21:18)
--- NOTE | 2016-10-12 12:20 | PN ---
Progress Note (short form) - Note Progress Note: Breathing feels better today. Some soreness at the thoracentesis site. No CP. Intake & Output 10/09/16 10/10/16 10/11/16 10/12/16 23:59 23:59 23:59 23:59 Intake Total 150 390 Balance 150 390 Weight 162 lb 163 lb Last Vital Signs Temp Pulse Resp BP Pulse Ox 98.6 F 80 20 116/67 99 10/12/16 08:00 10/12/16 08:00 10/12/16 09:00 10/12/16 08:00 10/12/16 09:00 Active Medications Acetaminophen/Codeine Phosphate (Tylenol # 3 -) 1 tab PO Q6H PRN Stop: 10/13/16 20:14 Last Admin: 10/12/16 07:54 Dose: 1 tab Albuterol Sulfate (Ventolin 0.083% Nebulizer Soln -) 1 amp NEB Q4H PRN PRN Reason: SHORT OF BREATH/WHEEZING Albuterol Sulfate (Ventolin 0.083% Nebulizer Soln -) 1 amp NEB QIDR [facility] Last Admin: 10/12/16 06:29 Dose: 1 amp Aspirin (Asa -) 81 mg PO DAILY [facility] Last Admin: 10/12/16 09:09 Dose: 81 mg Atorvastatin Calcium (Lipitor -) 10 mg PO HS [facility] [place] Last Admin: 10/11/16 21:36 Dose: 10 mg Budesonide/Formoterol Fumarate (Symbicort 160/4.5mcg -) 2 puff IH BID [facility] [place] Last Admin: 10/11/16 21:36 Dose: 2 puff Gabapentin (Neurontin -) 300 mg PO BID [facility] [place] Last Admin: 10/12/16 09:09 Dose: 300 mg Heparin Sodium (Porcine) (Heparin -) 5,000 unit SQ BID [facility] [place] Last Admin: 10/12/16 09:09 Dose: 5,000 unit Insulin Aspart (Novolog Vial Sliding Scale -) 1 vial SQ ACHS [facility] PRN Reason: Protocol Last Admin: 10/12/16 07:02 Dose: Not Given Losartan Potassium (Cozaar -) 25 mg PO DAILY [facility] [place] Last Admin: 10/12/16 09:24 Dose: 25 mg Montelukast Sodium (Singulair -) 10 mg PO HS [facility] [place] Last Admin: 10/11/16 21:36 Dose: 10 mg Ondansetron HCl (Zofran -) 8 mg PO Q6H PRN Spironolactone (Aldactone -) 25 mg PO DAILY [facility] [place] Last Admin: 10/12/16 09:09 Dose: 25 mg Verapamil HCl (Calan Sr -) 240 mg PO DAILY [facility] Last Admin: 10/12/16 09:09 Dose: 240 mg Constitutional: Yes: NAD Eyes: Yes: EOM Intact HENT: Yes: Normocephalic Neck: Yes: Trachea Midline Cardiovascular: Yes: Regular Rate and Rhythm Respiratory: Yes: Diminished / Bibasilar rhonchi Gastrointestinal: Yes: Normal Bowel Sounds Renal/: Yes: WNL Extremities: No: edema Edema: No Labs: Laboratory Results - last 24 hr 10/11/16 10/11/16 10/11/16 06:12 10:30 11:00 WBC RBC Hgb Hct MCV MCHC RDW Plt Count MPV Sodium Potassium Chloride Carbon Dioxide Anion Gap BUN Creatinine POC Glucometer [phone] Random Glucose Calcium Fluid Other Cells Cancelled Pleural Fluid Source Cancelled Right pleural Pleural Color Cancelled Lt yellow Pleural Appearance Cancelled Cloudy Pleural WBC Cancelled 2959 Pleural RBC Cancelled 2098 Pleural Neutrophils Cancelled 3 Pleural Lymphocytes Cancelled 20 Pleural Monocytes Cancelled Pleural Eosinophils Cancelled Pleural Basophils Cancelled Pleural Plasma Cells Cancelled Pleural Histocytes Cancelled Pleural Macrophages Cancelled 4 Pleural Mesothelial Cancelled 73 Pleural Diff Comment Cancelled Pleural Chloride 109 Cancelled Pleural Total Protein 4 Cancelled Pleural Albumin 2 Cancelled Pleural LDH 277 Cancelled Pleural Glucose 96 Cancelled Pleural Amylase 38 Cancelled Pleural Cholesterol < 50 Cancelled Pleural Triglycerides 10 Cancelled 10/11/16 10/11/16 10/12/16 18:48 21:40 07:02 WBC RBC Hgb Hct MCV MCHC RDW Plt Count MPV Sodium Potassium Chloride Carbon Dioxide Anion Gap BUN Creatinine POC Glucometer 137 109 95 Random Glucose Calcium Fluid Other Cells Pleural Fluid Source Pleural Color Pleural Appearance Pleural WBC Pleural RBC Pleural Neutrophils Pleural Lymphocytes Pleural Monocytes Pleural Eosinophils Pleural Basophils Pleural Plasma Cells Pleural Histocytes Pleural Macrophages Pleural Mesothelial Pleural Diff Comment Pleural Chloride Pleural Total Protein Pleural Albumin Pleural LDH Pleural Glucose Pleural Amylase Pleural Cholesterol Pleural Triglycerides 10/12/16 10/12/16 10/12/16 08:09 08:09 11:01 WBC 10.9 H RBC 4.33 Hgb 10.6 L Hct 33.8 MCV 78.0 L MCHC 31.3 L RDW 17.3 H Plt Count 277 MPV 8.3 Sodium 143 Potassium 4.7 Chloride 106 Carbon Dioxide 29 Anion Gap 8 BUN 33 H Creatinine 1.1 H POC Glucometer 100 Random Glucose 95 D Calcium 8.7 Fluid Other Cells Pleural Fluid Source Pleural Color Pleural Appearance Pleural WBC Pleural RBC Pleural Neutrophils Pleural Lymphocytes Pleural Monocytes Pleural Eosinophils Pleural Basophils Pleural Plasma Cells Pleural Histocytes Pleural Macrophages Pleural Mesothelial Pleural Diff Comment Pleural Chloride Pleural Total Protein Pleural Albumin Pleural LDH Pleural Glucose Pleural Amylase Pleural Cholesterol Pleural Triglycerides Problem List - Problems (1) Acute respiratory failure with hypoxia Code(s): J96.01 - ACUTE RESPIRATORY FAILURE WITH HYPOXIA (2) Diabetes 1.5, managed as type 2 Code(s): E10.9 - TYPE 1 DIABETES MELLITUS WITHOUT COMPLICATIONS (3) Hypertension Code(s): I10 - ESSENTIAL (PRIMARY) HYPERTENSION (4) Metastatic lung carcinoma Code(s): C78.00 - SECONDARY MALIGNANT NEOPLASM OF UNSPECIFIED LUNG Qualifiers : Laterality: unspecified laterality Qualified Code(s): C78.00 - Secondary malignant neoplasm of unspecified lung (5) Pleural effusion, right Code(s): J90 - PLEURAL EFFUSION, NOT ELSEWHERE CLASSIFIED Assessment/Plan 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
--- NOTE | 2016-10-12 12:30 | PN ---
Physical Exam: SUBJECTIVE: Patient seen and examined. She feels less short of breath with exertion. She complains of pain in her left leg - she says it feels like bone pain in her lower leg and thigh. OBJECTIVE: Vital Signs Period Temp Pulse Resp BP Sys/Soto Pulse Ox Last 24 Hr 97.7 F-98.6 F 76-86 16-20 109-159/65-78 94-99 GENERAL: The patient is awake, alert, and fully oriented, in no acute distress. LUNGS: Clear to auscultation bilaterally, with decreased breath sounds at both bases. HEART: Regular rate and rhythm, S1, S2 without murmur, rub or gallop. ABDOMEN: Soft, nontender, nondistended, normoactive bowel sounds, no guarding, no rebound, no hepatosplenomegaly, no masses. EXTREMITIES: 2+ pulses, warm, well-perfused, no edema. Laboratory Results - last 24 hr 10/11/16 10/11/16 10/11/16 06:12 10:30 11:00 WBC RBC Hgb Hct MCV MCHC RDW Plt Count MPV Sodium Potassium Chloride Carbon Dioxide Anion Gap BUN Creatinine POC Glucometer 167.35196 Random Glucose Calcium Fluid Other Cells Cancelled Pleural Fluid Source Cancelled Right pleural Pleural Color Cancelled Lt yellow Pleural Appearance Cancelled Cloudy Pleural WBC Cancelled 2959 Pleural RBC Cancelled 2098 Pleural Neutrophils Cancelled 3 Pleural Lymphocytes Cancelled 20 Pleural Monocytes Cancelled Pleural Eosinophils Cancelled Pleural Basophils Cancelled Pleural Plasma Cells Cancelled Pleural Histocytes Cancelled Pleural Macrophages Cancelled 4 Pleural Mesothelial Cancelled 73 Pleural Diff Comment Cancelled Pleural Chloride 109 Cancelled Pleural Total Protein 4 Cancelled Pleural Albumin 2 Cancelled Pleural LDH 277 Cancelled Pleural Glucose 96 Cancelled Pleural Amylase 38 Cancelled Pleural Cholesterol < 50 Cancelled Pleural Triglycerides 10 Cancelled 10/11/16 10/11/16 10/12/16 18:48 21:40 07:02 WBC RBC Hgb Hct MCV MCHC RDW Plt Count MPV Sodium Potassium Chloride Carbon Dioxide Anion Gap BUN Creatinine POC Glucometer 137 109 95 Random Glucose Calcium Fluid Other Cells Pleural Fluid Source Pleural Color Pleural Appearance Pleural WBC Pleural RBC Pleural Neutrophils Pleural Lymphocytes Pleural Monocytes Pleural Eosinophils Pleural Basophils Pleural Plasma Cells Pleural Histocytes Pleural Macrophages Pleural Mesothelial Pleural Diff Comment Pleural Chloride Pleural Total Protein Pleural Albumin Pleural LDH Pleural Glucose Pleural Amylase Pleural Cholesterol Pleural Triglycerides 10/12/16 10/12/16 10/12/16 08:09 08:09 11:01 WBC 10.9 H RBC 4.33 Hgb 10.6 L Hct 33.8 MCV 78.0 L MCHC 31.3 L RDW 17.3 H Plt Count 277 MPV 8.3 Sodium 143 Potassium 4.7 Chloride 106 Carbon Dioxide 29 Anion Gap 8 BUN 33 H Creatinine 1.1 H POC Glucometer 100 Random Glucose 95 D Calcium 8.7 Fluid Other Cells Pleural Fluid Source Pleural Color Pleural Appearance Pleural WBC Pleural RBC Pleural Neutrophils Pleural Lymphocytes Pleural Monocytes Pleural Eosinophils Pleural Basophils Pleural Plasma Cells Pleural Histocytes Pleural Macrophages Pleural Mesothelial Pleural Diff Comment Pleural Chloride Pleural Total Protein Pleural Albumin Pleural LDH Pleural Glucose Pleural Amylase Pleural Cholesterol Pleural Triglycerides Active Medications Generic Name Dose Route Start Last Admin Trade Name Freq PRN Reason Stop Dose Admin Acetaminophen/Codeine Phosphate 1 tab 10/10/16 20:15 10/12/16 07:54 Tylenol # 3 - PO 10/13/16 20:14 1 tab Q6H PRN Administration Albuterol Sulfate 1 amp 10/10/16 20:07 Ventolin 0.083% Nebulizer Soln - NEB Q4H PRN SHORT OF BREATH/WHEEZING Albuterol Sulfate 1 amp 10/11/16 00:00 10/12/16 06:29 Ventolin 0.083% Nebulizer Soln - NEB 1 amp QIDR SAEED Administration Aspirin 81 mg 10/11/16 10:00 10/12/16 09:09 Asa - PO 81 mg DAILY SAEED Administration Atorvastatin Calcium 10 mg 10/10/16 22:00 10/11/16 21:36 Lipitor - PO 10 mg HS SAEED Administration Budesonide/Formoterol Fumarate 2 puff 10/10/16 22:00 10/11/16 21:36 Symbicort 160/4.5mcg - IH 2 puff BID SAEED Administration Gabapentin 300 mg 10/11/16 22:00 10/12/16 09:09 Neurontin - PO 300 mg BID SAEED Administration Heparin Sodium (Porcine) 5,000 unit 10/11/16 22:00 10/12/16 09:09 Heparin - SQ 5,000 unit BID SAEED Administration Insulin Aspart 1 vial 10/10/16 22:00 10/12/16 07:02 Novolog Vial Sliding Scale - SQ Not Given ACHS [facility] Protocol Losartan Potassium 25 mg 10/11/16 10:00 10/12/16 09:24 Cozaar - PO 25 mg DAILY SAEED Administration Montelukast Sodium 10 mg 10/10/16 22:00 10/11/16 21:36 Singulair - PO 10 mg HS SAEED Administration Ondansetron HCl 8 mg 10/10/16 20:15 Zofran - PO Q6H PRN Spironolactone 25 mg 10/11/16 10:00 10/12/16 09:09 Aldactone - PO 25 mg DAILY SAEED Administration Verapamil HCl 240 mg 10/11/16 10:00 10/12/16 09:09 Calan Sr - PO 240 mg DAILY SAEED Administration ASSESSMENT/PLAN: This is a 66 year old woman with a history of type 2 DM, HTN, asthma, stage 3 CKD, metastatic lung cancer who presented to the ER with shortness of breath and hypoxia. 1. Acute hypoxic respiratory failure secondary to metastatic lung cancer with right pleural effusion - s/p therapeutic thoracentesis 10/11 - Continue oxygen - will likely need home oxygen 2. Stage 3 CKD - Stable 3. Type 2 DM with diabetic peripheral neuropathy - Continue Novolog sliding scale - Continue Neurontin for neuropathy 4. Hypertension - Continue Cozaar, Aldactone, Calan SR 5. Hyperlipidemia - Continue Lipitor 6. Asthma - Continue Singulair, Symbicort, Albuterol nebs 7. Left leg pain - X-rays of left femur, tib-fib to evaluate for metastatic disease Visit type - Emergency Visit Emergency Visit: Yes ED Registration Date: 10/10/16 Care time: The patient presented to the Emergency Department on the above date and was hospitalized for further evaluation of their emergent condition. - New Patient This patient is new to me today: No - Critical Care Critical Care patient: No - Discharge Referral Referred to [facility] No
[2016-10-12] MEDS: ATORVASTATIN CA 10 MG TABLET (FP) PO SCH (21:16)
[2016-10-12] MEDS: MONTELUKAST NA 10 MG TABLET PO SCH (21:17)
[2016-10-13] MEDS: ACETAMINOPHEN WITH CODEINE 300MG/30MG TABLET PO PRN (05:57)
[2016-10-13] MEDS: INSULIN SLIDING SCALE (NOVOLOG) 1 VIAL SQ SCH ×2 (06:23→11:54)
[2016-10-13] MEDS: ALBUTEROL SO4 0.083% IH SOL 2.5 MG/3 ML VIAL.NEB. NEB SCH (06:26)
[2016-10-13 07:51] VITALS: BP 125/76; TEMP 98.1
[2016-10-13 08:07] LABS: BASOPHIL 0.2 % (0-2.0); EOSINOPHIL 1.1 % (0-4.5); MCH 24.3 pg (25.7-33.7); MCHC 30.8 g/dl (32.0-36.0); MEAN CELL VOLUME 78.7 fl (80-96); MEAN PLT VOLUME 8.2 fl (7.5-11.1); NEUTROPHILS 73.7 % (42.8-82.8); PLATELET COUNT 284 K/MM3 (134-434); RDW 17.1 % (11.6-15.6); WHITE BLOOD COUNT 7.2 K/mm3 (4.0-10.0)
[2016-10-13 08:29] LABS: ANION GAP 5 (8-16); CO2 32 mmol/L (21-32); CREATININE 0.9 mg/dL (0.55-1.02); GLUCOSE,RANDOM 86 mg/dL (74-106)
[2016-10-13] MEDS ORDERED: PT OWN MED DRAWER 7, Y5N ONE (09:38)
[2016-10-13] MEDS: BUDESONIDE/FORMETEROL FUMARATE 160/4.5 mcg INHALER IH SCH (09:50)
[2016-10-13] MEDS: HEPARIN NA (PORCINE) 5,000 UNITS/ML 1ML VIAL SQ SCH (09:50)
[2016-10-13] MEDS: VERAPAMIL HCL 240 MG E.R. TABLET (FP) PO SCH (09:51)
[2016-10-13] MEDS: GABAPENTIN 300 MG CAPSULE (FP) PO SCH (09:51)
[2016-10-13] MEDS: ASPIRIN 81 MG CHEWABLE TABLETS PO SCH (09:51)
[2016-10-13] MEDS: SPIRONOLACTONE 25 MG TABLET (FP) PO SCH (09:51)
[2016-10-13] MEDS: LOSARTAN POTASSIUM 25 MG TABLET PO SCH (09:51)
--- NOTE | 2016-10-13 12:41 | PN ---
Progress Note (short form) - Note Progress Note: Restring in NAD on NC O2. Breathing feels a little better. No acute events overnight. Intake & Output 10/10/16 10/11/16 10/12/16 10/13/16 23:59 23:59 23:59 23:59 Intake Total 150 390 200 Balance 150 390 200 Weight 162 lb 163 lb Last Vital Signs Temp Pulse Resp BP Pulse Ox 98.1 F 73 18 125/76 96 10/13/16 07:44 10/13/16 07:44 10/13/16 08:00 10/13/16 07:44 10/13/16 08:00 Active Medications Acetaminophen/Codeine Phosphate (Tylenol # 3 -) 1 tab PO Q6H PRN Stop: 10/13/16 20:14 Last Admin: 10/13/16 05:57 Dose: 1 tab Albuterol Sulfate (Ventolin 0.083% Nebulizer Soln -) 1 amp NEB Q4H PRN PRN Reason: SHORT OF BREATH/WHEEZING Albuterol Sulfate (Ventolin 0.083% Nebulizer Soln -) 1 amp NEB QIDR [facility] Last Admin: 10/13/16 06:26 Dose: 1 amp Aspirin (Asa -) 81 mg PO DAILY [facility] Last Admin: 10/13/16 09:51 Dose: 81 mg Atorvastatin Calcium (Lipitor -) 10 mg PO HS [facility] Last Admin: 10/12/16 21:16 Dose: 10 mg Budesonide/Formoterol Fumarate (Symbicort 160/4.5mcg -) 2 puff IH BID SAEED Last Admin: 10/13/16 09:50 Dose: 2 puff Gabapentin (Neurontin -) 300 mg PO BID [facility] Last Admin: 10/13/16 09:51 Dose: 300 mg Heparin Sodium (Porcine) (Heparin -) 5,000 unit SQ BID [facility] Last Admin: 10/13/16 09:50 Dose: 5,000 unit Insulin Aspart (Novolog Vial Sliding Scale -) 1 vial SQ ACHS SAEED PRN Reason: Protocol Last Admin: 10/13/16 11:54 Dose: Not Given Losartan Potassium (Cozaar -) 25 mg PO DAILY [facility] Last Admin: 10/13/16 09:51 Dose: 25 mg Montelukast Sodium (Singulair -) 10 mg PO HS [facility] Last Admin: 10/12/16 21:17 Dose: 10 mg Ondansetron HCl (Zofran -) 8 mg PO Q6H PRN Spironolactone (Aldactone -) 25 mg PO DAILY [facility] Last Admin: 10/13/16 09:51 Dose: 25 mg Verapamil HCl (Calan Sr -) 240 mg PO DAILY [facility] Last Admin: 10/13/16 09:51 Dose: 240 mg Constitutional: Yes: NAD Eyes: Yes: EOM Intact HENT: Yes: Normocephalic Neck: Yes: Trachea Midline Cardiovascular: Yes: Regular Rate and Rhythm Respiratory: Yes: Diminished / Bibasilar rhonchi Gastrointestinal: Yes: Normal Bowel Sounds Renal/: Yes: WNL Extremities: No: edema Edema: No Labs: Laboratory Results - last 24 hr 10/12/16 10/12/16 10/13/16 16:04 21:52 05:55 WBC RBC Hgb Hct MCV MCHC RDW Plt Count MPV Neutrophils % Lymphocytes % Monocytes % Eosinophils % Basophils % Sodium Potassium Chloride Carbon Dioxide Anion Gap BUN Creatinine POC Glucometer 96 92 100 Random Glucose Calcium 10/13/16 10/13/16 10/13/16 07:00 07:00 11:38 WBC 7.2 D RBC 4.44 Hgb 10.8 Hct 35.0 MCV 78.7 L MCHC 30.8 L RDW 17.1 H Plt Count 284 MPV 8.2 Neutrophils % 73.7 D Lymphocytes % 7.1 L D Monocytes % 17.9 H D Eosinophils % 1.1 D Basophils % 0.2 Sodium 142 Potassium 5.1 Chloride 105 Carbon Dioxide 32 Anion Gap 5 L BUN 24 H D Creatinine 0.9 POC Glucometer 101 Random Glucose 86 Calcium 9.0 Problem List - Problems (1) Acute respiratory failure with hypoxia Code(s): J96.01 - ACUTE RESPIRATORY FAILURE WITH HYPOXIA (2) Diabetes 1.5, managed as type 2 Code(s): E10.9 - TYPE 1 DIABETES MELLITUS WITHOUT COMPLICATIONS (3) Hypertension Code(s): I10 - ESSENTIAL (PRIMARY) HYPERTENSION (4) Metastatic lung carcinoma Code(s): C78.00 - SECONDARY MALIGNANT NEOPLASM OF UNSPECIFIED LUNG Qualifiers : Laterality: unspecified laterality Qualified Code(s): C78.00 - Secondary malignant neoplasm of unspecified lung (5) Pleural effusion, right Code(s): J90 - PLEURAL EFFUSION, NOT ELSEWHERE CLASSIFIED Assessment/Plan 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
[2016-10-13 13:47] VITALS: PULSE 78
--- NOTE | 2016-10-13 14:28 | DS ---
Physical Examination Vital Signs: Vital Signs Temperature 98.1 F 10/13/16 07:44 Pulse Rate 78 10/13/16 13:44 Respiratory Rate 18 10/13/16 08:00 Blood Pressure 125/76 10/13/16 07:44 O2 Sat by Pulse Oximetry (%) 94 L 10/13/16 13:44 Constitutional: Yes: Well Nourished, No Distress Eyes: Yes: WNL, Conjunctiva Clear HENT: Yes: WNL, Atraumatic Neck: Yes: WNL, Supple Cardiovascular: Yes: WNL Respiratory: Yes: Dullness, SOB, SOB on Exertion Gastrointestinal: Yes: WNL Extremities: Yes: WNL Labs: CBC, BMP 10/13/16 07:00 10/13/16 07:00 Discharge Summary Reason For Visit: PLEURAL EFFU ON THE RIGHT/HYPOXIA Current Active Problems Acute respiratory failure with hypoxia (Acute) Chronic kidney disease (CKD) (Acute) Diabetes 1.5, managed as type 2 (Acute) Hypertension (Acute) Hypoxia (Acute) Metastatic lung carcinoma (Acute) Pleural effusion, right (Acute) Other Procedures: thoracenthesis Hospital Course: The patient is a 66 year old female with a significant past medical history of lung cancer (RUL) (she does not know the type), diabetes, and hypertension, presented to the Emergency Department with shortness of breath. Sent by Dr. Contreras from his office due to spo2 60's on room air. The patient reported that she was first diagnosed with lung cancer in 2013, and had chemotherapy and radiation, she also stated history of brain metastasis. She is now being treated with immunotherapy every two weeks since July. The patient states that she has not felt well all week, and states that she cannot walk around her house without being short of breath. Found to have multiple masses on and chest CTA along with large right pleural effusion. She underwent R thoracenthesis with removal of 1L of pleural fluid. She improved symptomatically however remains hypoxic with o2 sat less then 88 % without oxygen . She will be discharged home on O2 to follow up with DR Contreras for final cytology results . Condition: Guarded - Instructions Diet, Activity, Other Instructions: Cardiac/diabetic diet You have been prescribed home oxygen If despite oxygen you have worsening shortness of breath please call your doctor or return to ED Referrals: Josesito Finnegan MD [Staff Physician] - 1 Week Jesus Orellana [Primary Care Provider] - 1 Week Disposition: HOME - Home Medications Comprehensive Discharge Medication List: Ambulatory Orders Albuterol Sulfate Inhaler - [Ventolin HFA Inhaler -] 1 - 2 inh PO Q4H 09/26/14 Sitagliptin Phosphate [Januvia] 100 mg PO DAILY 09/26/14 Spironolactone 25 mg PO DAILY 09/26/14 Verapamil HCl 240 mg PO DAILY 09/26/14 Acetaminophen W/ Codeine #3 [Tylenol # 3 -] 1 tab PO PRN 10/10/16 Aspirin [ASA -] 81 mg PO DAILY 10/10/16 Atorvastatin Ca [Lipitor] 10 mg PO HS 10/10/16 Gabapentin 300 mg PO DAILY 10/10/16 Losartan Potassium 25 mg PO DAILY 10/10/16 Montelukast Na [Singulair -] 10 mg PO HS 10/10/16 Ondansetron [Zofran -] 8 mg PO PRN 10/10/16 Salmeterol/Fluticasone [Advair 500Mcg/50Mcg -] 1 inh IH BID 10/10/16
--- NOTE | 2016-10-14 15:36 | PATH ---
Cytology Non-Gynecological Report Patient Name: CHLOE CABRERA [facility]. Rec. #: [id number] /Age/Gender: 1950 (Age: 66) / F Account: [id number] Location: [facility] Taken: 10/11/2016 Received: 10/11/2016 Reported: 10/14/2016 Physicians: Kennedy Watt M.D. Jude Roman M.D. Specimen(s) Received A: RIGHT PLEURAL FLUID IN 50% ALCOHOL B: RIGHT PLEURAL FLUID FRESH Clinical History Pleural effusion Final Diagnosis A,B. PLEURAL FLUID, RIGHT THORACENTESIS: SATISFACTORY FOR EVALUATION. POSITIVE FOR MALIGNANT CELLS. CONSISTENT WITH INVOLVEMENT BY ADENOCARCINOMA OF PULMONARY ORIGIN (SEE COMMENT). Comment: History or metastatic lung adenocarcinoma is noted. Immunohistochemical stains performed and interpreted at [facility] on cell block A show the following: the tumor cells are positive for TTF1 and CK7 immunostains, BerEP4/VINCENZO is not reactive. The cytomorphologic findings and the immunoprofile are consistent with involvement by metastatic adenocarcinoma of pulmonary origin. The case was discussed with Dr. Thompson on 10/14/16. Electronically Signed Grey Hdez M.D. Gross Description A. Received is a 50 cc of yellow fluid in 50% alcohol. One cytofunnel slide and one cell block are made. B. Received is 1000 cc of yellow fluid fresh. One cytofunnel slide and one cell block are made.
== END 2016-10-13 15:48 | disposition home or self-care (01) | DRG 180 ==
LOC: JER 14:38 → JERBED 19:46 → J7W 10-11 13:51
PROVIDERS: ADMIT Internal Medicine; ATTEND Internal Medicine
PROC: 0W993ZX Drainage of Right Pleural Cavity, Percutaneous Approach, Diagnostic (ICD-10-PCS; principal; 2016-10-11)
DX: C34.11 Malignant neoplasm of upper lobe, right bronchus or lung (principal); J96.01 Acute respiratory failure with hypoxia; I31.3 Pericardial effusion (noninflammatory); C79.31 Secondary malignant neoplasm of brain; J91.0 Malignant pleural effusion; E11.22 Type 2 diabetes mellitus with diabetic chronic kidney disease; I12.9 Hypertensive chronic kidney disease with stage 1 through stage 4 chronic kidney disease, or unspecified chronic kidney disease; N18.3 Chronic kidney disease, stage 3 (moderate); E11.40 Type 2 diabetes mellitus with diabetic neuropathy, unspecified; J45.909 Unspecified asthma, uncomplicated; J44.9 Chronic obstructive pulmonary disease, unspecified; Z87.891 Personal history of nicotine dependence; M79.605 Pain in left leg
CPT/HCPCS: 36415; 36600; 71010-TC; 71020-TC; 71275-TC; 73552-TC-LT; 73590-TC-LT; 76942; 80048; 80053; 82042; 82150; 82375; 82438; 82803; 82945; 83050; 83615; 84157; 84311; 84478; 85025; 85027; 85610; 87040; 87070; 87075; 87077; 87102; 87116; 87205; 87206; 87210; 88108; 88305-TC; 88341-TC; 89051; 93005; 93010; 93306-TC; 94640; 94761; 99285-25; J1644

== ENCOUNTER 2017-05-06 15:21 | Inpatient (IN) | payer OTHER ==
--- NOTE | 2017-05-06 15:41 | PDOC ---
Rapid Medical Evaluation Time Seen by Provider: 05/06/17 15:36 Medical Evaluation: Allergies Allergy/AdvReac Type Severity Reaction Status Date / Time No Known Allergies Allergy Verified 09/26/14 10:39 05/06/17 15:39 I have performed a brief in-person evaluation of this patient. The patient presents with a chief complaint of desaturation at home, coughing, shortness of breath and chest discomfort. Used 2 liter of o2 at home. Denies recent cold symptoms. States sent from primary physician's office. Pertinent physical exam findings: NAD + inspiratory or expiratory wheezing, dry coughing in triage heart s1s2 non tender chest I have ordered the following: o2, monitor labs The patient will proceed to the Ed for further evaluation.
[2017-05-06 15:42] VITALS: BMI 25.7
[2017-05-06] MEDS ORDERED: ALBUTEROL SO4 2.5/IPRATROPIUM 0.5 INH SOL 3 ML VIAL.NEB. NEB ONE ×2 (15:42→20:06)
--- NOTE | 2017-05-06 19:25 | PDOC ---
History of Present Illness - General History Source: Patient <Nica Peresan - Last Filed: 05/07/17 00:06> - General History Source: Patient - History of Present Illness Initial Comments: 05/06/17 20:11 The patient is a 67 year old female with a significant past medical history of lung cancer (last chemotherapy on 05/01/14), Right Pleural Effusions, Diabetes, Hypertension, presenting to the Emergency Department sent by Dr. Contreras for increasing shortness of breath since her last chemotherapy treatment 5 days ago. She states she was receiving treatment on and developed some shortness of breath later that day which has increasing in severity each day since. She reports occasional dyspnea on exertion. She reports an occasional cough, intermittently productive of yellow and clear sputum. She reportedly take Tylenol intermittently without improvement of her symptoms. She is reportedly compliant with daily medications. The patient denies chest pain, headache, palpitations, or dizziness. The patient denies fever, chills, nausea, vomiting, diarrhea, constipation or hematochezia. The patient denies dysuria, hematuria, change in frequency. PCP: Dr. Jesus Orellana Ct Technician: Dr. Contreras <Caroline Alonzo - Last Filed: 05/07/17 00:40> - General Chief Complaint: Shortness of Breath Stated Complaint: DIFFICULTY BREATHING Time Seen by Provider: 05/06/17 15:36 Past History - Past Medical History Asthma: Yes Cancer: Yes (RUL, CHEMO/RADIATION COMPLETED SPRING 2014. 2016) COPD: Yes Diabetes: Yes HTN: Yes - Immunization History Td Vaccination: Yes Immunization Up to Date: Yes - Suicide/Smoking/Psychosocial Hx Smoking History: Never smoked Have you smoked in the past 12 months: No If you are a former smoker, when did you quit?: 1991 Information on smoking cessation initiated: No Hx Alcohol Use: No Drug/Substance Use Hx: No Substance Use Type: None Hx Substance Use Treatment: No <Giorgi Peres - Last Filed: 05/07/17 00:06> <Caroline Alonzo - Last Filed: 05/07/17 00:40> - Past Medical History Allergies/Adverse Reactions: Allergies Allergy/AdvReac Type Severity Reaction Status Date / Time No Known Allergies Allergy Verified 05/06/17 15:38 Home Medications: Ambulatory Orders Albuterol Sulfate Inhaler - [Ventolin HFA Inhaler -] 1 - 2 inh PO Q4H 09/26/14 Sitagliptin Phosphate [Januvia] 100 mg PO DAILY 09/26/14 Spironolactone 25 mg PO DAILY 09/26/14 Verapamil HCl 240 mg PO DAILY 09/26/14 Acetaminophen W/ Codeine #3 [Tylenol # 3 -] 1 tab PO PRN 10/10/16 Aspirin [ASA -] 81 mg PO DAILY 10/10/16 Atorvastatin Ca [Lipitor] 10 mg PO HS 10/10/16 Gabapentin 300 mg PO DAILY 10/10/16 Losartan Potassium 25 mg PO DAILY 10/10/16 Montelukast Na [Singulair -] 10 mg PO HS 10/10/16 Ondansetron [Zofran -] 8 mg PO PRN 10/10/16 Salmeterol/Fluticasone [Advair 500Mcg/50Mcg -] 1 inh IH BID 10/10/16 Review of Systems - Review of Systems Able to Perform ROS?: Yes Comments:: 05/06/17 20:12 CONSTITUTIONAL: Absent: fever, chills, diaphoresis, generalized weakness, malaise, loss of appetite HEENT: Absent: rhinorrhea, nasal congestion, throat pain, throat swelling, difficulty swallowing, mouth swelling, ear pain, eye pain, visual Changes CARDIOVASCULAR: Absent: chest pain, syncope, palpitations, irregular heart rate, lightheadedness , peripheral edema RESPIRATORY: (+) productive cough, shortness of breath, dyspnea with exertion, Absent: orthopnea, wheezing, stridor, hemoptysis GASTROINTESTINAL: Absent: abdominal pain, abdominal distension, nausea, vomiting, diarrhea, constipation, melena, hematochezia GENITOURINARY: Absent: dysuria, frequency, urgency, hesitancy, hematuria, flank pain, genital pain MUSCULOSKELETAL: Absent: myalgia, arthralgia, joint swelling SKIN: Absent: rash, itching, pallor HEMATOLOGIC/IMMUNOLOGIC: Absent: easy bleeding, easy bruising, lymphadenopathy, frequent infections ENDOCRINE: Absent: unexplained weight gain, unexplained weight loss, heat intolerance, cold intolerance NEUROLOGIC: Absent: headache, focal weakness or paresthesias, dizziness, unsteady gait, seizure, mental status changes, bladder or bowel incontinence PSYCHIATRIC: Absent: anxiety, depression, suicidal or homicidal ideation, hallucinations. <Caroline Alonzo - Last Filed: 05/07/17 00:40> *Physical Exam - Vital Signs Last Vital Signs Temp Pulse Resp BP Pulse Ox 98.3 F 83 16 103/62 92 L 05/06/17 15:38 05/06/17 15:38 05/06/17 15:38 05/06/17 15:38 05/06/17 15:38 <BarteduardaGiorgi - Last Filed: 05/07/17 00:06> - Vital Signs Last Vital Signs Temp Pulse Resp BP Pulse Ox 98.3 F 83 16 103/62 92 L 05/06/17 15:38 05/06/17 15:38 05/06/17 15:38 05/06/17 15:38 05/06/17 15:38 - Physical Exam Comments: 05/06/17 20:13 GENERAL: Well developed, well nourished. Awake and alert. No acute distress. HEENT: Normocephalic, atraumatic. PERRLA, EOMI. No conjunctival pallor. Sclera are non- icteric. Moist mucous membranes. Oropharynx is clear. NECK: Supple. Full ROM. No JVD. Carotid pulses 2+ and symmetric, without bruits. No thyromegaly. No lymphadenopathy. CARDIOVASCULAR: Regular rate and rhythm. No murmurs, rubs, or gallops. Distal pulses are 2+ and symmetric. PULMONARY: (+) mild conversational dyspnea. decreased bilaterally scattered wheezing throughout. No evidence of respiratory distress. No rales or rhonchi. ABDOMINAL: Soft. Non-tender. Non-distended. No rebound or guarding. No organomegaly. Normoactive bowel sounds. MUSCULOSKELETAL Normal range of motion at all joints. No bony deformities or tenderness. No CVA tenderness. EXTREMITIES: No cyanosis. No clubbing. No edema. No calf tenderness. SKIN: Warm and dry. Normal capillary refill. No rashes. No jaundice. NEUROLOGICAL: Alert, awake, appropriate. Cranial nerves 2-12 intact. Normoreflexic in the upper and lower extremities. Normal speech. Toes are down-going bilaterally. Gait is normal without ataxia. PSYCHIATRIC: Cooperative. Good eye contact. Appropriate mood and affect. <AnayaelCaroline pierce - Last Filed: 05/07/17 00:40> Heart Score/ECG Review - ECG Intrepretation Comment:: 05/07/17 00:39 EKG was read by Dr. Peres at 00:30 Impression: Normal sinus rhythm. Possible left atrial enlargement. Vent. Rate: 71 bpm AR Interval: 132 ms QTc: 430 ms <Caroline Alonzo - Last Filed: 05/07/17 00:40> ED Treatment Course - LABORATORY CBC & Chemistry Diagram: 05/06/17 20:50 05/06/17 21:40 <Giorgi Peres - Last Filed: 05/07/17 00:06> - LABORATORY CBC & Chemistry Diagram: 05/06/17 20:50 05/06/17 21:40 <Caroline Alonzo - Last Filed: 05/07/17 00:40> Medical Decision Making - Medical Decision Making 05/07/17 00:06 Dr. Peres: The scribe's documentation has been prepared under my direction and personally reviewed by me in its entirery. I confirm that the note above accurately reflects all work, treatment, procedures, and medical decision making performed by me. Pt with Metastatic Lung CA <Giorgi Peres - Last Filed: 05/07/17 00:06> *DC/Admit/Observation/Transfer - Discharge Dispostion Admit: Yes <Giorgi Peres - Last Filed: 05/07/17 00:06> - Attestations Scribe Attestion: 05/06/17 20:13 Documentation prepared by Caroline Alonzo, acting as medical office assistant instructor for Giorgi Peres DO <Caroline Alonzo - Last Filed: 05/07/17 00:40> Diagnosis at time of Disposition: Metastatic lung carcinoma, SOB (shortness of breath) Pneumonia Qualifiers: Pneumonia type: due to unspecified organism Laterality: unspecified laterality - Discharge Dispostion Condition at time of disposition: Stable - Referrals Referrals: Jesus Orellana [Primary Care Provider] - - Patient Instructions - Post Discharge Activity
[2017-05-06] MEDS ORDERED: MAGNESIUM SULF 50% (8.12 MEQ/2 ML-1 GM VIAL) IVPB ONE (19:26)
[2017-05-06] MEDS ORDERED: ALBUTEROL SO4 2.5/IPRATROPIUM 0.5 INH SOL 3 ML VIAL.NEB. NEB STA ×2 (19:26→19:27)
[2017-05-06] MEDS ORDERED: MAGNESIUM SULF 50% (8.12 MEQ/2 ML-1 GM VIAL) ONE (20:32)
[2017-05-06 21:01] LABS: BASO % 0.4 % (0-2.0); EOS % 0.1 % (0-4.5); HEMATOCRIT 37.4 % (32.4-45.2); HEMOGLOBIN 11.8 GM/dL (10.7-15.3); LYMPH % 8.5 % (8-40); MCH 25.8 pg (25.7-33.7); MCHC 31.6 g/dl (32.0-36.0); MEAN CELL VOLUME 81.6 fl (80-96); MEAN PLT VOLUME 8.5 fl (7.5-11.1); MONO % 1.6 % (3.8-10.2); NEUT % 89.4 % (42.8-82.8); PLATELET COUNT 188 K/MM3 (134-434); RBC 4.58 M/mm3 (3.60-5.2); RDW 16.1 % (11.6-15.6); WHITE BLOOD COUNT 3.1 K/mm3 (4.0-10.0)
[2017-05-06 22:35] LABS: ANION GAP 8 (8-16); BILIRUBIN,TOTAL 0.3 mg/dL (0.2-1.0); BLOOD UREA NITROGEN 37 mg/dL (7-18); CALCIUM 7.8 mg/dL (8.5-10.1); CHLORIDE 102 mmol/L (98-107); CO2 26 mmol/L (21-32); CREATININE 1.6 mg/dL (0.55-1.02); GLUCOSE,RANDOM 142 mg/dL (74-106); SGPT/ALT 25 U/L (12-78); SODIUM 136 mmol/L (136-145); TOT PROT 6.7 g/dl (6.4-8.2)
[2017-05-06 22:38] LABS: ALK PHOS 160 U/L (45-117); N-TERMINAL BNP 159.18 pg/ml (5-125)
[2017-05-06 23:00] LABS: SGOT/AST 43 U/L (15-37)
[2017-05-07] MEDS ORDERED: LEVOFLOXACIN 750 MG IVPB 750 MG/150 ML BAG IVPB ONE ×2 (00:02→00:42)
[2017-05-07] MEDS ORDERED: methylPREDNISolone NA SUCC 125 MG/2 ML VIAL IVPB ONE (00:11)
[2017-05-07] MEDS ORDERED: methylPREDNISolone NA SUCC 125 MG/2 ML VIAL ONE (00:41)
[2017-05-07] MEDS ORDERED: METOCLOPRAMIDE HCL INJECTION 10 MG/2 ML VIAL IVPUSH ONE (01:14)
[2017-05-07] MEDS ORDERED: morphine CARPU-JECT 2 MG/1 ML DISP.SYRIN IVPUSH ONE (01:14)
[2017-05-07] MEDS ORDERED: METOCLOPRAMIDE HCL INJECTION 10 MG/2 ML VIAL ONE (01:18)
[2017-05-07] MEDS ORDERED: morphine CARPU-JECT 10 MG/1 ML DISP.SYRIN ONE (01:18)
--- NOTE | 2017-05-07 01:45 | HP ---
<Carlos Rascon - Last Filed: 05/07/17 05:45> CHIEF COMPLAINT: weakness and productive cough since PCP: Dr. Orellana Pulrosales: Dr. Contreras Oncologist: Carlos Thompson ([phone]) HISTORY OF PRESENT ILLNESS: Pt is a 67 y/o F w/ PMH recurrent R Lung CA with brain mets, COPD sats 97% on 2L at home, Asthma, pleural effusions who presents to ED with feeling unwell since her chemo treatment on . Pt has been fatigued, which was noticed by family as well stating she has been unable to open jars and walks very slowly. This is in gallagher contrast to her usual state. Pt also complains of body aches. Pt denies fever, chills, nausea, vomiting, diarrhea, bloody urine/bowel movements. ER course was notable for: (1) WBC 3.1, BUN 37, [employer] 1.6, glc 142, AST 43, AlkP 160, BNP 159 (2) CXR pending official read (3) Recent Travel: denies PAST MEDICAL HISTORY: Lung CA s/p chemo in 2013 with brain mets in 2016 (s/p XRT), recurrent R lung CA on "premeda"? (possibly a biologic?), COPD sats 97% on 2L at home, Asthma, pleural effusions, DM, HTN PAST SURGICAL HISTORY: Social History: Smokinppd x 20yr quit in 1991 Alcohol: denies Drugs: denies Family History: Allergies No Known Allergies Allergy (Verified 05/06/17 15:38) HOME MEDICATIONS: Home Medications Medication Instructions Recorded Albuterol Sulfate Inhaler - 1 - 2 inh PO Q4H 09/26/14 [Ventolin HFA Inhaler -] Sitagliptin Phosphate [Januvia] 100 mg PO DAILY 09/26/14 Spironolactone 25 mg PO DAILY 09/26/14 Verapamil HCl 240 mg PO DAILY 09/26/14 Acetaminophen W/ Codeine #3 1 tab PO PRN 10/10/16 [Tylenol # 3 -] Aspirin [ASA -] 81 mg PO DAILY 10/10/16 Atorvastatin Ca [Lipitor] 10 mg PO HS 10/10/16 Gabapentin 300 mg PO DAILY 10/10/16 Losartan Potassium 25 mg PO DAILY 10/10/16 Montelukast Na [Singulair -] 10 mg PO HS 10/10/16 Ondansetron [Zofran -] 8 mg PO PRN 10/10/16 Salmeterol/Fluticasone [Advair 1 inh IH BID 10/10/16 500Mcg/50Mcg -] REVIEW OF SYSTEMS CONSTITUTIONAL: generalized weakness, malaise, loss of appetite Absent: fever, chills, diaphoresis, , weight change HEENT: Absent: rhinorrhea, nasal congestion, throat pain, throat swelling, difficulty swallowing, mouth swelling, ear pain, eye pain, visual changes CARDIOVASCULAR: Absent: chest pain, syncope, palpitations, irregular heart rate, lightheadedness , peripheral edema RESPIRATORY: cough, shortness of breath, dyspnea with exertion Absent: , orthopnea, wheezing, stridor, hemoptysis GASTROINTESTINAL: Absent: abdominal pain, abdominal distension, nausea, vomiting, diarrhea, constipation, melena, hematochezia GENITOURINARY: Absent: dysuria, frequency, urgency, hesitancy, hematuria, flank pain, genital pain MUSCULOSKELETAL: Absent: myalgia, arthralgia, joint swelling, back pain, neck pain SKIN: Absent: rash, itching, pallor HEMATOLOGIC/IMMUNOLOGIC: Absent: easy bleeding, easy bruising, lymphadenopathy, frequent infections ENDOCRINE: Absent: unexplained weight gain, unexplained weight loss, heat intolerance, cold intolerance NEUROLOGIC: Absent: headache, focal weakness or paresthesias, dizziness, unsteady gait, seizure, mental status changes, bladder or bowel incontinence PSYCHIATRIC: Absent: anxiety, depression, suicidal or homicidal ideation, hallucinations. PHYSICAL EXAMINATION Vital Signs - 24 hr 05/06/17 15:38 Temperature 98.3 F Pulse Rate 83 Respiratory 16 Rate Blood Pressure 103/62 O2 Sat by Pulse 92 L Oximetry (%) GENERAL: Awake, alert, and fully oriented, in no acute distress. HEAD: Normal with no signs of trauma. EYES: L pupil fixed. Pt has no vision in left eye, right pupil round and reactive to light, extraocular movements intact, sclera anicteric, conjunctiva clear. No lid lag. EARS, NOSE, THROAT: Ears normal, nares patent, oropharynx clear without exudates. Moist mucous membranes. NECK: Normal range of motion, supple without lymphadenopathy, JVD, or masses. LUNGS: Diffuse wheezes, and no crackles. Decreased breath sounds at R lung base. No accessory muscle use. HEART: Regular rate and rhythm, normal S1 and S2 without murmur, rub or gallop. ABDOMEN: Soft, nontender, not distended, normoactive bowel sounds, no guarding, no rebound, no masses. No hepatomegaly or splenomegaly. MUSCULOSKELETAL: Normal range of motion at all joints. No bony deformities or tenderness. No CVA tenderness. UPPER EXTREMITIES: 2+ pulses, warm, well-perfused. No cyanosis. No clubbing. No peripheral edema. LOWER EXTREMITIES: 2+ pulses, warm, well-perfused. No calf tenderness. No peripheral edema. NEUROLOGICAL: Cranial nerves II-XII intact. Normal speech. Normal gait. PSYCHIATRIC: Cooperative. Good eye contact. Appropriate mood and affect. SKIN: Warm, dry, normal turgor, no rashes or lesions noted, normal capillary refill. Laboratory Results - last 24 hr 05/06/17 05/06/17 05/06/17 20:50 20:50 21:40 WBC 3.1 L D RBC 4.58 Hgb 11.8 Hct 37.4 MCV 81.6 MCH 25.8 MCHC 31.6 L RDW 16.1 H Plt Count 188 D MPV 8.5 Neutrophils % 89.4 H D Lymphocytes % 8.5 Monocytes % 1.6 L D Eosinophils % 0.1 D Basophils % 0.4 Sodium Cancelled 136 Potassium Cancelled 5.0 Chloride Cancelled 102 Carbon Dioxide Cancelled 26 Anion Gap Cancelled 8 BUN Cancelled 37 H Creatinine Cancelled 1.6 H Creat Clearance w eGFR Cancelled 32.05 Random Glucose Cancelled 142 H Calcium Cancelled 7.8 L Total Bilirubin Cancelled 0.3 AST Cancelled 43 H D ALT Cancelled 25 D Alkaline Phosphatase Cancelled 160 H Creatine Kinase 105 Troponin I < 0.02 B-Natriuretic Peptide Cancelled 159.18 H Total Protein Cancelled 6.7 Albumin Cancelled 3.0 L ASSESSMENT/PLAN: Pt is a 67 y/o F w/ PMH recurrent R Lung CA with brain mets, COPD sats 97% on 2L at home, Asthma, pleural effusions who presented to ED with fatigue, weakness , productive cough, and malaise since her chemo session on . Plan #COPD exacerbation possibly 2/2 PNA -Admit to inpt -2L O2 -VS Q6 -Duonebs Q4hrs -Solumedrol Q8hrs -Pulm consult -IV ABx #hx Lung CA -Pt sees oncolgist Dr. Thompson as outpt -Pulm consult #Asthma -On duonebs -On solumedrol -Albuterol PRN #FEN -not on fluids -lytes wnl -DM diet #ppx -HSQ -SCD #Dispo -Admit to inpt for PNA r/o and treatment for lung condition Carlos Rascon MD PGY-1 Visit type - Emergency Visit Emergency Visit: Yes ED Registration Date: 05/07/17 Care time: The patient presented to the Emergency Department on the above date and was hospitalized for further evaluation of their emergent condition. - New Patient This patient is new to me today: Yes Date on this admission: 05/07/17 - Critical Care Critical Care patient: No <Russ Barajas - Last Filed: 05/07/17 06:12> ATTENDING PHYSICIAN STATEMENT I saw and evaluated the patient. I reviewed the resident's note and discussed the case with the resident. I agree with the resident's findings and plan as documented. Vital Signs Temperature 98.3 F 05/06/17 15:38 Pulse Rate 83 05/06/17 15:38 Respiratory Rate 16 05/06/17 15:38 Blood Pressure 103/62 05/06/17 15:38 O2 Sat by Pulse Oximetry (%) 92 L 05/06/17 15:38 Lungs - wheezing b/l CBC, BMP 05/06/17 20:50 05/06/17 21:40 67 year old with metastatic lung cancer and copd presents with dyspnea and wheezing secondary to COPD exacerbation with possibly superimposed PNA. Has ARF. Agree with plan above
[2017-05-07] MEDS: methylPREDNISolone NA SUCC 40 MG/1 ML VIAL IVPUSH SCH ×3 (01:59→18:18)
[2017-05-07] MEDS ORDERED: ALBUTEROL SO4 18 GM HFA INHALER IH PRN (03:30)
[2017-05-07] MEDS ORDERED: ONDANSETRON 4 MG TABLET PO PRN (03:30)
[2017-05-07] MEDS ORDERED: SODIUM CHLORIDE 1,000 ML IV SCH (06:30)
[2017-05-07] MEDS ORDERED: sitaGLIPtin PHOSPHATE 100 MG TABLET (FP) PO SCH (07:00)
[2017-05-07 07:32] LABS: BASO % 0.2 % (0-2.0); HEMATOCRIT 36.9 % (32.4-45.2); HEMOGLOBIN 11.5 GM/dL (10.7-15.3); LYMPH % 4.6 % (8-40); MCH 25.5 pg (25.7-33.7); MCHC 31.1 g/dl (32.0-36.0); MEAN PLT VOLUME 8.4 fl (7.5-11.1); MONO % 1.3 % (3.8-10.2); NEUT % 93.9 % (42.8-82.8); PLATELET COUNT 137 K/MM3 (134-434); RDW 15.8 % (11.6-15.6); WHITE BLOOD COUNT 2.1 K/mm3 (4.0-10.0)
[2017-05-07 07:54] LABS: ANION GAP 7 (8-16); BLOOD UREA NITROGEN 30 mg/dL (7-18); CALCIUM 8.6 mg/dL (8.5-10.1); CHLORIDE 99 mmol/L (98-107); CO2 29 mmol/L (21-32); GLUCOSE,RANDOM 134 mg/dL (74-106); MAGNESIUM 2.5 mg/dL (1.8-2.4); POTASSIUM 5.3 mmol/L (3.5-5.1); SGOT/AST 27 U/L (15-37); SODIUM 135 mmol/L (136-145)
[2017-05-07 07:57] LABS: ALK PHOS 162 U/L (45-117); BILIRUBIN,TOTAL 0.3 mg/dL (0.2-1.0); CREATININE 1.2 mg/dL (0.55-1.02); PHOSPHOROUS 3.6 mg/dL (2.5-4.9); SGPT/ALT 23 U/L (12-78); TOT PROT 6.9 g/dl (6.4-8.2)
[2017-05-07] MEDS ORDERED: HEPARIN NA (PORCINE) 5,000 UNITS/ML 1ML VIAL ONE (08:02)
[2017-05-07] MEDS ORDERED: ALBUTEROL SO4 2.5/IPRATROPIUM 0.5 INH SOL 3 ML VIAL.NEB. NEB ONE (08:02)
[2017-05-07] MEDS ORDERED: sitaGLIPtin PHOSPHATE 50 MG TABLET ONE (08:03)
[2017-05-07] MEDS: HEPARIN NA (PORCINE) 5,000 UNITS/ML 1ML VIAL SQ SCH ×3 (08:14→22:19)
--- NOTE | 2017-05-07 08:43 | PN ---
Physical Exam: SUBJECTIVE: Patient seen and examined by me this AM - States breathing much improved. Still with productive cough w/ yellow sputum. Denies fever/chills, CP, abdominal pain, rashes, LE edema OBJECTIVE: Vital Signs Period Temp Pulse Resp BP Sys/Soto Pulse Ox Last 24 Hr 98.2 F-98.3 F 78-83 16-16 103-110/55-62 92-100 GENERAL: The patient is awake, alert, and fully oriented, in no acute distress. HEAD: Normal with no signs of trauma. EYES: PERRL, extraocular movements intact, sclera anicteric, conjunctiva clear. No ptosis. ENT: Poor dentition. Ears normal, nares patent, oropharynx clear without exudates, moist mucous membranes. NECK: Trachea midline, full range of motion, supple. LUNGS: BL expiratory wheezing. Poor air entry. No crackles, no accessory muscle use. HEART: Regular rate and rhythm, S1, S2 without murmur, rub or gallop. ABDOMEN: Soft, nontender, nondistended, normoactive bowel sounds, no guarding, no rebound, no hepatosplenomegaly, no masses. EXTREMITIES: 2+ pulses, warm, well-perfused, no edema. NEUROLOGICAL: Cranial nerves II through XII grossly intact. Normal speech, gait not observed. PSYCH: Normal mood, normal affect. SKIN: Warm, dry, normal turgor, no rashes or lesions noted Laboratory Results - last 24 hr CBC, BMP 05/07/17 07:11 05/07/17 07:08 05/06/17 05/06/17 05/06/17 20:50 20:50 20:50 WBC 3.1 L D RBC 4.58 Hgb 11.8 Hct 37.4 MCV 81.6 MCH 25.8 MCHC 31.6 L RDW 16.1 H Plt Count 188 D MPV 8.5 Neutrophils % 89.4 H D Lymphocytes % 8.5 Monocytes % 1.6 L D Eosinophils % 0.1 D Basophils % 0.4 Sodium Cancelled Potassium Cancelled Chloride Cancelled Carbon Dioxide Cancelled Anion Gap Cancelled BUN Cancelled Creatinine Cancelled Creat Clearance w eGFR Cancelled Random Glucose Cancelled Lactic Acid Calcium Cancelled Phosphorus Magnesium Total Bilirubin Cancelled AST Cancelled ALT Cancelled Alkaline Phosphatase Cancelled Creatine Kinase Cancelled Troponin I Cancelled B-Natriuretic Peptide Cancelled Total Protein Cancelled Albumin Cancelled 05/06/17 05/07/17 05/07/17 21:40 01:05 07:08 WBC RBC Hgb Hct MCV MCH MCHC RDW Plt Count MPV Neutrophils % Lymphocytes % Monocytes % Eosinophils % Basophils % Sodium 136 135 L Potassium 5.0 5.3 H Chloride 102 99 Carbon Dioxide 26 29 Anion Gap 8 7 L BUN 37 H 30 H Creatinine 1.6 H 1.2 H Creat Clearance w eGFR 32.05 44.68 Random Glucose 142 H 134 H Lactic Acid 1.1 Calcium 7.8 L 8.6 Phosphorus 3.6 Magnesium 2.5 H Total Bilirubin 0.3 0.3 AST 43 H D 27 D ALT 25 D 23 Alkaline Phosphatase 160 H 162 H Creatine Kinase 105 Troponin I < 0.02 B-Natriuretic Peptide 159.18 H Total Protein 6.7 6.9 Albumin 3.0 L 3.0 L 05/07/17 07:11 WBC 2.1 L D RBC 4.50 Hgb 11.5 Hct 36.9 MCV 82.0 MCH 25.5 L MCHC 31.1 L RDW 15.8 H Plt Count 137 D MPV 8.4 Neutrophils % 93.9 H Lymphocytes % 4.6 L D Monocytes % 1.3 L Eosinophils % 0.0 D Basophils % 0.2 Sodium Potassium Chloride Carbon Dioxide Anion Gap BUN Creatinine Creat Clearance w eGFR Random Glucose Lactic Acid Calcium Phosphorus Magnesium Total Bilirubin AST ALT Alkaline Phosphatase Creatine Kinase Troponin I B-Natriuretic Peptide Total Protein Albumin Active Medications Generic Name Dose Route Start Last Admin Trade Name Freq PRN Reason Stop Dose Admin Acetaminophen/Codeine Phosphate 1 tab 05/07/17 03:30 Tylenol # 3 - PO Q6H PRN PAIN LEVEL 6-10 Albuterol Sulfate 2 puff 05/07/17 03:30 Ventolin Hfa Inhaler - IH Q4H PRN SHORT OF BREATH/WHEEZING Albuterol/Ipratropium 1 amp 05/07/17 08:00 Duoneb - NEB 05/10/17 20:30 RQID SAEED Aspirin 81 mg 05/07/17 10:00 Asa - PO DAILY SAEED Atorvastatin Calcium 10 mg 05/07/17 22:00 Lipitor - PO HS SAEED Budesonide/Formoterol Fumarate 2 puff 05/07/17 10:00 Symbicort 160/4.5mcg - IH BID SAEED Gabapentin 300 mg 05/07/17 10:00 Neurontin - PO DAILY SAEED Heparin Sodium (Porcine) 5,000 unit 05/07/17 06:00 05/07/17 08:14 Heparin - SQ 5,000 unit TID SAEED Administration Sodium Chloride 1,000 mls @ 50 mls/hr 05/07/17 06:30 05/07/17 08:15 Normal Saline - IV 05/08/17 06:19 50 mls/hr ASDIR SAEED Administration Losartan Potassium 25 mg 05/07/17 10:00 Cozaar - PO DAILY SAEED Methylprednisolone Sodium Succinate 40 mg 05/07/17 01:30 05/07/17 01:59 Solu-Medrol - IVPUSH Not Given Q8H-IV SAEED Montelukast Sodium 10 mg 05/07/17 22:00 Singulair - PO HS SAEED Ondansetron HCl 8 mg 05/07/17 03:30 Zofran - PO Q8H PRN NAUSEA AND/OR VOMITING Sitagliptin Phosphate 100 mg 05/07/17 07:00 05/07/17 08:15 Januvia - PO 100 mg DAILY@0700 SAEED Administration Verapamil HCl 240 mg 05/07/17 10:00 Calan Sr - PO DAILY [facility] Microbiology 05/07/17 07:55 Nasopharyngeal Swab Influenza Types A,B Antigen (ODESSA) - Final 05/07/17 07:55 Nasopharyngeal Swab - Final CT Chest 05/07 - IMPRESSION: Interval slightly better aeration of the left lung with persistent interstitial and nodular opacities and masslike density in the left lower lobe, anteriorly measuring 2.1 cm without gross interval change. Masslike density in the right upper lobe, anteriorly inseparable from the right superior mediastinum and with with tiny cystic changes again seen without gross interval change. Interval decrease right pleural effusion that remains moderate with a triangular-shaped low-attenuation density in the right lung base likely representing loculated fluid. Continued close follow-up is recommended. CXR 05/06 - Suspected right lung mass and pleural effusion with diffuse nodularity and interstitial lung disease. Clinical correlation and follow-up recommended. Please see above discussion ASSESSMENT/PLAN: 67 yo F w/ PMH recurrent R Lung CA w/ metastatic breast Ca, COPD (2L, satting in 97%), chronic pleural effusions, asthma who presents to ED w/ malaise, body aches and generalized fatigue after chemo tx on . #COPD exacerbation - Likely secondary to PNA - 2L O2 tx. Maintain sat >97% - Duonebs QIDR - Solumedrol 40mg Q8h - Pulm consult - Levofloxacin for empiric coverage, day 2/7 - Compazine prn for N/V - Singulair - Symbicort - Tylenol for fever, pain - f/u all cultures - Thoracentesis per pulm recs #hx Lung CA - Pt sees oncologist Dr. Thompson as outpt - Pulm consult - Will require outpt follow-up #Hyperkalemia - K 5.0 today - Daily BMPs - Tx as needed #HTN - Verapamil - Hold home spironolactone/losartan #NIDDM - Cont home januvia - ISS - BGM - Neurontin #HLD - C/w home statin #Asthma -duonebs -Solumedrol -Albuterol PRN FEN - NS 50cc/hr - Daily BMPs - Diabetic diet/low K diet PPX heparin subq scds Plan discussed with Dr. Bharathi Francois, PGY1 Visit type - Emergency Visit Emergency Visit: Yes ED Registration Date: 05/07/17 Care time: The patient presented to the Emergency Department on the above date and was hospitalized for further evaluation of their emergent condition. - New Patient This patient is new to me today: Yes Date on this admission: 05/08/17 - Critical Care Critical Care patient: No
[2017-05-07] MEDS: ALBUTEROL SO4 2.5/IPRATROPIUM 0.5 INH SOL 3 ML VIAL.NEB. NEB SCH ×4 (09:03→23:53)
[2017-05-07] MEDS ORDERED: LOSARTAN POTASSIUM 25 MG TABLET PO SCH (10:00)
[2017-05-07] MEDS ORDERED: SPIRONOLACTONE 25 MG TABLET (FP) PO SCH (10:00)
--- NOTE | 2017-05-07 10:56 | EKG ---
Test Reason : Blood Pressure : / mmHG Vent. Rate : 071 BPM Atrial Rate : 071 BPM P-R Int : 132 ms QRS Dur : 086 ms QT Int : 396 ms P-R-T Axes : 063 086 073 degrees QTc Int : 430 ms NORMAL SINUS RHYTHM POSSIBLE LEFT ATRIAL ENLARGEMENT BORDERLINE ECG WHEN COMPARED WITH ECG OF 10-OCT-2016 18:28, NON-SPECIFIC CHANGE IN ST SEGMENT IN ANTERIOR LEADS NONSPECIFIC T WAVE ABNORMALITY NO LONGER EVIDENT IN INFERIOR LEADS NONSPECIFIC T WAVE ABNORMALITY NO LONGER EVIDENT IN ANTERIOR LEADS Confirmed by MAVIS HURST, MOHINDER ([id number]) on 05/07/2017 10:56:02 AM Referred By: Confirmed By:MOHINDER GAMBLE MD
[2017-05-07] MEDS ORDERED: ACETAMINOPHEN WITH CODEINE 300MG/30MG TABLET ONE (11:19)
[2017-05-07] MEDS: ASPIRIN 81 MG CHEWABLE TABLETS PO SCH (11:36)
[2017-05-07] MEDS: ACETAMINOPHEN WITH CODEINE 300MG/30MG TABLET PO PRN (11:36)
[2017-05-07] MEDS: GABAPENTIN 300 MG CAPSULE (FP) PO SCH (11:37)
[2017-05-07] MEDS: VERAPAMIL HCL 240 MG E.R. TABLET (FP) PO SCH (11:37)
[2017-05-07] MEDS ORDERED: PROCHLORPERAZINE INJECTION 10 MG/2 ML VIAL IM PRN (13:18)
--- NOTE | 2017-05-07 13:50 | PN ---
Teaching Attending Note Name of Resident: Tyrell Francois ATTENDING PHYSICIAN STATEMENT Time of evaluation: 9:30 AM I saw and evaluated the patient. I reviewed the resident's note and discussed the case with the resident. I agree with the resident's findings and plan as documented. SUBJECTIVE: Patient seen and examined. breathing with some improvement, still with cough with clear sputum, denies any fevers, chills, chest pain, palpitations,or dizziness. OBJECTIVE: Vital Signs Period Temp Pulse Resp BP Sys/Soto Pulse Ox Last 24 Hr 98.2 F-98.3 F 78-83 16-16 103-110/55-62 92-100 Intake & Output 05/04/17 05/05/17 05/06/17 05/07/17 23:59 23:59 23:59 23:59 Weight 141 lb general: sitting in bed, able to speak in full sentences, no use of acessory muscles of respiration CVS;S1s2 regular Chest: bilateral extensive expiratory wheezing, decreased air entry, no rales appreciated Abdomen: soft, NT, ND, positive bowel sounds extermities: no edema Home Medication List Medication Instructions Recorded Confirmed Type Albuterol Sulfate Inhaler - 1 - 2 inh PO Q4H 09/26/14 05/07/17 History [Ventolin HFA Inhaler -] Sitagliptin Phosphate [Januvia] 100 mg PO DAILY 09/26/14 05/07/17 History Spironolactone 25 mg PO DAILY 09/26/14 05/07/17 History Verapamil HCl 240 mg PO DAILY 09/26/14 05/07/17 History Acetaminophen W/ Codeine #3 1 tab PO PRN 10/10/16 05/07/17 History [Tylenol # 3 -] Aspirin [ASA -] 81 mg PO DAILY 10/10/16 05/07/17 History Atorvastatin Ca [Lipitor] 10 mg PO HS 10/10/16 05/07/17 History Gabapentin 300 mg PO DAILY 10/10/16 05/07/17 History Losartan Potassium 25 mg PO DAILY 10/10/16 05/07/17 History Montelukast Na [Singulair -] 10 mg PO HS 10/10/16 05/07/17 History Ondansetron [Zofran -] 8 mg PO PRN 10/10/16 05/07/17 History Salmeterol/Fluticasone [Advair 1 inh IH BID 10/10/16 05/07/17 History 500Mcg/50Mcg -] Active Medications Generic Name Dose Route Start Last Admin Trade Name Freq PRN Reason Stop Dose Admin Acetaminophen/Codeine Phosphate 1 tab 05/07/17 03:30 05/07/17 11:36 Tylenol # 3 - PO 1 tab Q6H PRN Administration PAIN LEVEL 6-10 Albuterol Sulfate 2 puff 05/07/17 03:30 Ventolin Hfa Inhaler - IH Q4H PRN SHORT OF BREATH/WHEEZING Albuterol/Ipratropium 1 amp 05/07/17 08:00 05/07/17 11:36 Duoneb - NEB 05/10/17 20:30 1 amp RQID SAEED Administration Aspirin 81 mg 05/07/17 10:00 05/07/17 11:36 Asa - PO 81 mg DAILY SAEED Administration Atorvastatin Calcium 10 mg 05/07/17 22:00 Lipitor - PO HS SAEED Budesonide/Formoterol Fumarate 2 puff 05/07/17 10:00 Symbicort 160/4.5mcg - IH BID SAEED Gabapentin 300 mg 05/07/17 10:00 05/07/17 11:37 Neurontin - PO 300 mg DAILY SAEED Administration Heparin Sodium (Porcine) 5,000 unit 05/07/17 06:00 05/07/17 08:14 Heparin - SQ 5,000 unit TID SAEED Administration Sodium Chloride 1,000 mls @ 50 mls/hr 05/07/17 06:30 05/07/17 08:15 Normal Saline - IV 05/08/17 06:19 50 mls/hr ASDIR SAEED Administration Levofloxacin 250 mg in 50 mls @ 100 mls/hr 05/08/17 10:00 Levaquin 250 Mg Premixed Ivpb - IVPB DAILY SAEED Losartan Potassium 25 mg 05/07/17 10:00 05/07/17 11:37 Cozaar - PO 25 mg DAILY SAEED Administration Methylprednisolone Sodium Succinate 40 mg 05/07/17 01:30 05/07/17 11:36 Solu-Medrol - IVPUSH 40 mg Q8H-IV SAEED Administration Montelukast Sodium 10 mg 05/07/17 22:00 Singulair - PO HS SAEED Prochlorperazine Edisylate 5 mg 05/07/17 13:18 Compazine Injection - IM Q4H PRN NAUSEA AND/OR VOMITING Sitagliptin Phosphate 100 mg 05/07/17 07:00 05/07/17 08:15 Januvia - PO 100 mg DAILY@0700 SAEED Administration Verapamil HCl 240 mg 05/07/17 10:00 05/07/17 11:37 Calan Sr - PO 240 mg DAILY SAEED Administration Laboratory Results - last 24 hr 05/06/17 05/06/17 05/06/17 20:50 20:50 20:50 WBC 3.1 L D RBC 4.58 Hgb 11.8 Hct 37.4 MCV 81.6 MCH 25.8 MCHC 31.6 L RDW 16.1 H Plt Count 188 D MPV 8.5 Neutrophils % 89.4 H D Lymphocytes % 8.5 Monocytes % 1.6 L D Eosinophils % 0.1 D Basophils % 0.4 Sodium Cancelled Potassium Cancelled Chloride Cancelled Carbon Dioxide Cancelled Anion Gap Cancelled BUN Cancelled Creatinine Cancelled Creat Clearance w eGFR Cancelled Random Glucose Cancelled Lactic Acid Calcium Cancelled Phosphorus Magnesium Total Bilirubin Cancelled AST Cancelled ALT Cancelled Alkaline Phosphatase Cancelled Creatine Kinase Cancelled Troponin I Cancelled B-Natriuretic Peptide Cancelled Total Protein Cancelled Albumin Cancelled 05/06/17 05/07/17 05/07/17 21:40 01:05 07:08 WBC RBC Hgb Hct MCV MCH MCHC RDW Plt Count MPV Neutrophils % Lymphocytes % Monocytes % Eosinophils % Basophils % Sodium 136 135 L Potassium 5.0 5.3 H Chloride 102 99 Carbon Dioxide 26 29 Anion Gap 8 7 L BUN 37 H 30 H Creatinine 1.6 H 1.2 H Creat Clearance w eGFR 32.05 44.68 Random Glucose 142 H 134 H Lactic Acid 1.1 Calcium 7.8 L 8.6 Phosphorus 3.6 Magnesium 2.5 H Total Bilirubin 0.3 0.3 AST 43 H D 27 D ALT 25 D 23 Alkaline Phosphatase 160 H 162 H Creatine Kinase 105 Troponin I < 0.02 B-Natriuretic Peptide 159.18 H Total Protein 6.7 6.9 Albumin 3.0 L 3.0 L 05/07/17 07:11 WBC 2.1 L D RBC 4.50 Hgb 11.5 Hct 36.9 MCV 82.0 MCH 25.5 L MCHC 31.1 L RDW 15.8 H Plt Count 137 D MPV 8.4 Neutrophils % 93.9 H Lymphocytes % 4.6 L D Monocytes % 1.3 L Eosinophils % 0.0 D Basophils % 0.2 Sodium Potassium Chloride Carbon Dioxide Anion Gap BUN Creatinine Creat Clearance w eGFR Random Glucose Lactic Acid Calcium Phosphorus Magnesium Total Bilirubin AST ALT Alkaline Phosphatase Creatine Kinase Troponin I B-Natriuretic Peptide Total Protein Albumin Microbiology 05/07/17 07:55 Nasopharyngeal Swab Influenza Types A,B Antigen (ODESSA) - Final 05/07/17 07:55 Nasopharyngeal Swab - Final CT chest results reviewed. ASSESSMENT AND PLAN: 67 yof with pMhx of Lung Ca s/p chemoradiation, Mets to brain, currently on ? immunotherapy, COPD on 2L home oxygen admitted with dsypnea/hypoxia -Acute COPD exacerbation -Acute bronchitis vs early pneumonia -Hyperkalemia -HTN -NIDDM Plan: CT chest noted, follow up pulmonary recs. Continue solumedrol, standing nebs. Currently at baseline oxygen supplementation Continue levaquin for now. SPutum cultures. Follow up urine PNA studies. Hold spironolactone and losartan. Place on Low K diet. s/p gentle hdyration this AM. Monitor K levels. Trend WBC for leucopenia. discuss with outpatient oncologist for details on recent treatment. Continue sitagliptin, ISS, diabetic diet. Place on GIPPX given high dose steroids. DVTPPX with heparin Dispo planning pending improvement in symptoms. Plan discussed with patient in detail, all questions answered.
--- NOTE | 2017-05-07 14:18 | MSN ---
Progress Note (short form) - Note Progress Note: Subjective: Patient was seen this morning, appears comfortable and states her breathing is much improved and has no difficulty breathing. Patient denies chest pain, abd pain, N/V/D Objective: Last Vital Signs Temp Pulse Resp BP Pulse Ox 98.2 F 78 16 110/55 97 05/07/17 07:11 05/07/17 07:11 05/07/17 07:11 05/07/17 07:11 05/07/17 09:21 General: Patient appears comfortable, eating breakfast, in no acute distress HEENT: normocephalic, atraumatic. diminished vision on left eye- pupil nonreactive to light. PERRLA on right eye. trachea midline. Heart: RRR, no murmurs rubs or gallops appreciated. Lungs: poor air flow, expiratory wheezes appreciated throughout Abdomen: soft, non tender to palpation. normoactive bowel sounds x4 Extremities: well perfused, no edema noted, pulses 2+ B/L on UE and LE. CBC, BMP 05/07/17 07:11 05/07/17 07:08 Abnormal Lab Results 05/06/17 05/06/17 05/07/17 20:50 21:40 07:08 WBC 3.1 L D MCH MCHC 31.6 L RDW 16.1 H Neutrophils % 89.4 H D Lymphocytes % Monocytes % 1.6 L D Sodium 135 L Potassium 5.3 H Anion Gap 7 L BUN 37 H 30 H Creatinine 1.6 H 1.2 H Random Glucose 142 H 134 H Calcium 7.8 L Magnesium 2.5 H AST 43 H D Alkaline Phosphatase 160 H 162 H B-Natriuretic Peptide 159.18 H Albumin 3.0 L 3.0 L 05/07/17 07:11 WBC 2.1 L D MCH 25.5 L MCHC 31.1 L RDW 15.8 H Neutrophils % 93.9 H Lymphocytes % 4.6 L D Monocytes % 1.3 L Sodium Potassium Anion Gap BUN Creatinine Random Glucose Calcium Magnesium AST Alkaline Phosphatase B-Natriuretic Peptide Albumin Microbiology 05/07/17 07:55 Nasopharyngeal Swab Influenza Types A,B Antigen (ODESSA) - Final 05/07/17 07:55 Nasopharyngeal Swab - Final Imaging: chest CT 05/07/17: Interval slightly better aeration of the left lung with persistent interstitial and nodular opacities and masslike density in the left lower lobe, anteriorly measuring 2.1 cm without gross interval change. Mass- like density in the right upper lobe, anteriorly inseparable from the right superior mediastinum and with with tiny cystic changes again seen without gross interval change. Interval decrease right pleural effusion that remains moderate with a triangular-shaped low-attenuation density in the right lung base likely representing loculated fluid. EKG on 05/06/17: normal sinus rhythm, possible left atrial enlargement. Xray on 05/06/17: Suspected right lung mass and pleural effusion with diffuse nodularity and interstitial lung disease. Clinical correlation and follow-up recommended. Please see above discussion. Home Medications Medication Instructions Recorded Albuterol Sulfate Inhaler - 1 - 2 inh PO Q4H 09/26/14 [Ventolin HFA Inhaler -] Sitagliptin Phosphate [Januvia] 100 mg PO DAILY 09/26/14 Spironolactone 25 mg PO DAILY 09/26/14 Verapamil HCl 240 mg PO DAILY 09/26/14 Acetaminophen W/ Codeine #3 1 tab PO PRN 10/10/16 [Tylenol # 3 -] Aspirin [ASA -] 81 mg PO DAILY 10/10/16 Gabapentin 300 mg PO DAILY 10/10/16 Losartan Potassium 25 mg PO DAILY 10/10/16 Montelukast Na [Singulair -] 10 mg PO HS 10/10/16 Folic Acid 1 mg PO DAILY 05/07/17 Salmeterol/Fluticasone [Advair 1 inh BID 05/07/17 250Mcg/50Mcg -] Assessment/ Plan: 67 yo F with hx of lung cancer with brain mets s/p chemoradiation, COPD on 2L O2 at home who presented with hypoxia/dyspnea likely due to acute on chronic hypoxemic respiratory failure. # acute on chronic hypoxemic respiratory failure -- end stage COPD - consult pulmonology: Dr. Contreras - CT scan of chest noted above - 2L O2 nasal cannula maintain pulse ox >97% - Albuterol Sulfate (Ventolin Hfa Inhaler -) 2 puff IH Q4H PRN SOB/ wheezing - Albuterol/Ipratropium (Duoneb -) 1 amp NEB RQID SAEED - Methylprednisolone Sodium Succinate (Solu-Medrol -) 40 mg IVPUSH Q8H-IV SAEED - Budesonide/Formoterol Fumarate (Symbicort 160/4.5mcg -) 2 puff IH BID SAEED - Montelukast Sodium (Singulair -) 10 mg PO HS SAEED - antibiotics: Levofloxacin (Levaquin 250 Mg Premixed Ivpb -) 250 mg in 50 mls @ 100 mls/hr IVPB DAILY SAEED - thoracocentesis in the AM per pulm rec # Hyperkalemia -monitor BMP # HTN - Verapamil HCl (Calan Sr -) 240 mg PO DAILY SAEED # Hyperlipidimia - Atorvastatin Calcium (Lipitor -) 10 mg PO HS SAEED # NIDDM - continue home medication of Sitagliptin Phosphate (Januvia -) 100 mg PO DAILY @0700 SAEED - Insulin sliding scale - monitor blood glucose # chronic intermittent back pain - home med: Gabapentin (Neurontin -) 300 mg PO DAILY SAEED # hx of lung adenocarcinoma - stable to mildly progressive dz - spoke to Dr. Thompson: patient was diagnosed with stage III adenocarcinoma in early 2014 and was treated with chemo + radiation. On Jan 2015, patient had metastasis to the brain and was managed with whole brain radiation. On July 2016, patient had 6 courses immunotherapy with Nivolumab and completed them. For the past 6 months, patient has been treated with Alimta q2-4 weeks. - continue outpt management # FEN - fluid: Sodium Chloride (Normal Saline -) 1,000 mls @ 50 mls/hr IV ASDIR SAEED - electrolyte: hyperkalemia - nutrition: PO # DVT prophylaxis: heparin 5000 units sq TIS SAEED
--- NOTE | 2017-05-07 16:30 | PN ---
Progress Note (short form) - Note Progress Note: PULMONARY CONSULTATION DICTATED 05/07/17 IMP ACUTE AN CHRONIC HYPOXEMIC RESPIRATORY FAILURE/LYMPHANGITIC SPREAD END STAGE COPD METASTATIC LUNG CA WITH PLEURAL AND INVESTMENT OFFICER METS PLAN IV STEROIDS INHALED BRONCHODILATORS O2 ABX THORACENTESIS IN AM DR PHELAN Problem List - Problems (1) Acute and chronic respiratory failure with hypoxia Code(s): J96.21 - ACUTE AND CHRONIC RESPIRATORY FAILURE WITH HYPOXIA (2) Metastatic lung carcinoma Code(s): C78.00 - SECONDARY MALIGNANT NEOPLASM OF UNSPECIFIED LUNG (3) SOB (shortness of breath) Code(s): R06.02 - SHORTNESS OF BREATH (4) Chronic kidney disease (CKD) Code(s): N18.9 - CHRONIC KIDNEY DISEASE, UNSPECIFIED (5) Diabetes 1.5, managed as type 2 Code(s): E10.9 - TYPE 1 DIABETES MELLITUS WITHOUT COMPLICATIONS (6) Hypertension Code(s): I10 - ESSENTIAL (PRIMARY) HYPERTENSION (7) Hypoxia Code(s): R09.02 - HYPOXEMIA (8) Pleural effusion, right Code(s): J90 - PLEURAL EFFUSION, NOT ELSEWHERE CLASSIFIED
--- NOTE | 2017-05-07 17:50 | CONS ---
DATE OF CONSULTATION: 05/07/2017 PULMONARY CONSULTATION REFERRING PHYSICIAN: Jackelyn Garvin M.D. HISTORY OF PRESENT ILLNESS: The patient is a 67-year-old black female past metastatic lung CA currently being maintained on oral medications that was a few months ago, history of right pleural effusion malignant, history of CASING SOAKER metastases status post RT, diabetes, hypertension, who I saw in my office yesterday with complaint of a few-day history of increasing shortness of breath and dyspnea on exertion. Patient states she received last treatment on of last week, at the time started developing increasing shortness of breath, dyspnea on exertion. She presented to my office yesterday. She was noted to be markedly dyspneic walking a couple of steps. On O2 saturation on room air was 76%. Patient was advised to go to the emergency room for therapy. Patient denied any complaints of chest pain. She did have occasional cough, nonproductive, denied any fever, chills, or hemoptysis. Denied any chest pains or palpitations. In the ER she underwent a followup chest CT which revealed no evidence of acute process. She had right pleural effusion which she has had in the past, which was again malignant. She was started on inhaled bronchodilators with steroids with some clinical improvement. PAST MEDICAL HISTORY: Again includes metastatic lung CA, adenocarcinoma type, with CASING SOAKER metastases, pleural metastases, history of hypertension, diabetes, right pleural effusion malignant, and COPD on O2. MEDICATION: Medications prior to admission include albuterol, Januvia, Aldactone, verapamil, aspirin, Lipitor, gabapentin, Singulair, Zofran, and Advair. REVIEW OF SYSTEMS: Positive dyspnea. Positive orthopnea. No chest pain. No palpitations. No fever. No chills. Positive weight loss. Current medications include Symbicort, Solu-Medrol, Levaquin, heparin, Neurontin, Compazine, albuterol, DuoNeb, Calan, Januvia, Lipitor, Singulair, aspirin, Tylenol, Protonix. PHYSICAL EXAMINATION: General: The patient is an elderly female, chronically ill appearing, awake, alert, in no acute respiratory distress. Vital signs: She is currently afebrile. Blood pressure is 108/56, respiratory rate 18, saturation is 97% on 2 L. HEENT: Head is normocephalic, atraumatic. Neck: Supple. Heart: Regular. S1, S2. Chest: Scattered bilateral crackles and rhonchi. Abdomen: Soft. Bowel sounds positive. Extremities: No cyanosis, edema. LABORATORY: WBC is 2.1, hemoglobin 11.5, hematocrit 36.9 with a platelet count of 137,000. Potassium 5.3, BUN 30, creatinine 1.2. Chest CT reveals a right pleural effusion, a lung mass, extensive changes bilaterally, with nodular opacities in the left lung. IMPRESSION: 1. Dyspnea, hypoxemia, [id number] hypoxemic respiratory failure secondary to chronic obstructive pulmonary disease exam. 2. Possible pneumonia. 3. Advanced metastatic lung carcinoma with central nervous system metastases and pleural metastases. PLAN: Intravenous steroids, inhaled bronchodilators, antibiotics, supplemental O2, followup chest x-rays. Speak to interventional radiology about possible thoracentesis, followup chest x-rays. GLORIA PHELAN M.D. [id number]
[2017-05-07] MEDS: BUDESONIDE/FORMETEROL FUMARATE 160/4.5 mcg INHALER IH SCH ×2 (18:19→22:19)
[2017-05-07 20:02] LABS: CHLORIDE 102 mmol/L (98-107); SODIUM 139 mmol/L (136-145)
[2017-05-07 20:15] LABS: ANION GAP 13 (8-16); BLOOD UREA NITROGEN 32 mg/dL (7-18); CALCIUM 8.4 mg/dL (8.5-10.1); CO2 24 mmol/L (21-32); CREATININE 1.6 mg/dL (0.55-1.02); GLUCOSE,RANDOM 155 mg/dL (74-106)
[2017-05-07] MEDS: ATORVASTATIN CA 10 MG TABLET (FP) PO SCH (22:19)
[2017-05-07] MEDS: MONTELUKAST NA 10 MG TABLET PO SCH (22:19)
[2017-05-08] MEDS: methylPREDNISolone NA SUCC 40 MG/1 ML VIAL IVPUSH SCH ×3 (01:47→22:12)
[2017-05-08] MEDS: ACETAMINOPHEN WITH CODEINE 300MG/30MG TABLET PO PRN (06:23)
--- NOTE | 2017-05-08 06:24 | PN ---
Physical Exam: SUBJECTIVE: Patient seen and examined by me this AM - No major overnight events. Still with mild dyspnea, productive cough. Endorses pain in L back. Denies any CP, FARIAS, fever/chills, abdominal pain, N/V, LE edema - Per Dr. Guadarrama, advised to drain R pleural effusion, given compressive change in R lung. OBJECTIVE: Vital Signs Intake & Output 05/05/17 05/06/17 05/07/17 05/08/17 23:59 23:59 23:59 23:59 Weight 63.957 kg 63.957 kg Period Temp Pulse Resp BP Sys/Soto Pulse Ox Last 24 Hr 97.7 F-98.2 F 58-78 16-22 102-110/55-72 94-100 GENERAL: The patient is awake, alert, and fully oriented, in no acute distress. HEAD: Normal with no signs of trauma. EYES: L eye poorly reactive to light and accomodation. R eye normal. extraocular movements intact, sclera anicteric, conjunctiva clear. No ptosis. ENT: Poor dentition. Trace nasal congestion. Ears normal, nares patent, oropharynx clear without exudates, moist mucous membranes. NECK: Trachea midline, full range of motion, supple. LUNGS: Still with BL diffuse expiratory wheezing. Poor air entry. Bibasilar rhonchi. Decreased breath sounds at RLL, dullness to percussion. HEART: Regular rate and rhythm, S1, S2 without murmur, rub or gallop. ABDOMEN: Soft, nontender, nondistended, normoactive bowel sounds, no guarding, no rebound, no hepatosplenomegaly, no masses. EXTREMITIES: 2+ pulses, warm, well-perfused, no edema. NEUROLOGICAL: Cranial nerves II through XII grossly intact. Normal speech, gait not observed. PSYCH: Normal mood, normal affect. SKIN: Warm, dry, normal turgor, no rashes or lesions noted Laboratory Results - last 24 hr CBC, BMP 05/08/17 06:30 05/08/17 06:30 05/07/17 07:11 05/07/17 18:50 05/07/17 05/07/17 05/07/17 07:08 07:11 16:42 WBC 2.1 L D RBC 4.50 Hgb 11.5 Hct 36.9 MCV 82.0 MCH 25.5 L MCHC 31.1 L RDW 15.8 H Plt Count 137 D MPV 8.4 Neutrophils % 93.9 H Lymphocytes % 4.6 L D Monocytes % 1.3 L Eosinophils % 0.0 D Basophils % 0.2 Sodium 135 L Potassium 5.3 H Chloride 99 Carbon Dioxide 29 Anion Gap 7 L BUN 30 H Creatinine 1.2 H Creat Clearance w eGFR 44.68 POC Glucometer [id number] Random Glucose 134 H Calcium 8.6 Phosphorus 3.6 Magnesium 2.5 H Total Bilirubin 0.3 AST 27 D ALT 23 Alkaline Phosphatase 162 H Total Protein 6.9 Albumin 3.0 L 05/07/17 18:50 WBC RBC Hgb Hct MCV MCH MCHC RDW Plt Count MPV Neutrophils % Lymphocytes % Monocytes % Eosinophils % Basophils % Sodium 139 Potassium 5.0 Chloride 102 Carbon Dioxide 24 Anion Gap 13 BUN 32 H Creatinine 1.6 H Creat Clearance w eGFR POC Glucometer Random Glucose 155 H Calcium 8.4 L Phosphorus Magnesium Total Bilirubin AST ALT Alkaline Phosphatase Total Protein Albumin Active Medications Generic Name Dose Route Start Last Admin Trade Name Freq PRN Reason Stop Dose Admin Acetaminophen/Codeine Phosphate 1 tab 05/07/17 03:30 05/07/17 11:36 Tylenol # 3 - PO 1 tab Q6H PRN Administration PAIN LEVEL 6-10 Albuterol Sulfate 2 puff 05/07/17 03:30 Ventolin Hfa Inhaler - IH Q4H PRN SHORT OF BREATH/WHEEZING Albuterol/Ipratropium 1 amp 05/07/17 08:00 05/07/17 23:53 Duoneb - NEB 05/10/17 20:30 Not Given RQID SAEED Aspirin 81 mg 05/07/17 10:00 05/07/17 11:36 Asa - PO 81 mg DAILY SAEED Administration Atorvastatin Calcium 10 mg 05/07/17 22:00 05/07/17 22:19 Lipitor - PO 10 mg HS SAEED Administration Budesonide/Formoterol Fumarate 2 puff 05/07/17 10:00 05/07/17 22:19 Symbicort 160/4.5mcg - IH 4.5 puff BID SAEED Administration Gabapentin 300 mg 05/07/17 10:00 05/07/17 11:37 Neurontin - PO 300 mg DAILY SAEED Administration Heparin Sodium (Porcine) 5,000 unit 05/07/17 06:00 05/07/17 22:19 Heparin - SQ 5,000 unit TID SAEED Administration Levofloxacin 250 mg in 50 mls @ 100 mls/hr 05/08/17 10:00 Levaquin 250 Mg Premixed Ivpb - IVPB DAILY SAEED Methylprednisolone Sodium Succinate 40 mg 05/07/17 01:30 05/08/17 01:47 Solu-Medrol - IVPUSH 40 mg Q8H-IV SAEED Administration Montelukast Sodium 10 mg 05/07/17 22:00 05/07/17 22:19 Singulair - PO 10 mg HS SAEED Administration Pantoprazole Sodium 40 mg 05/08/17 10:00 Protonix - PO DAILY SAEED Prochlorperazine Edisylate 5 mg 05/07/17 13:18 Compazine Injection - IM Q4H PRN NAUSEA AND/OR VOMITING Sitagliptin Phosphate 100 mg 05/08/17 07:00 Januvia - PO DAILY@0700 SAEED Verapamil HCl 240 mg 05/07/17 10:00 05/07/17 11:37 Calan Sr - PO 240 mg DAILY SAEED Administration Microbiology 05/07/17 01:08 Blood - Peripheral Venous Blood Culture - Preliminary NO GROWTH OBTAINED AFTER 24 HOURS, INCUBATION TO CONTINUE FOR 4 DAYS. 05/07/17 01:08 Blood - Peripheral Venous Blood Culture - Preliminary NO GROWTH OBTAINED AFTER 24 HOURS, INCUBATION TO CONTINUE FOR 4 DAYS. 05/07/17 07:55 Nasopharyngeal Swab Influenza Types A,B Antigen (ODESSA) - Final 05/07/17 07:55 Nasopharyngeal Swab - Final CT Chest 05/07 - IMPRESSION: Interval slightly better aeration of the left lung with persistent interstitial and nodular opacities and masslike density in the left lower lobe, anteriorly measuring 2.1 cm without gross interval change. Masslike density in the right upper lobe, anteriorly inseparable from the right superior mediastinum and with with tiny cystic changes again seen without gross interval change. Interval decrease right pleural effusion that remains moderate with a triangular-shaped low-attenuation density in the right lung base likely representing loculated fluid. Continued close follow-up is recommended. CXR 05/06 - Suspected right lung mass and pleural effusion with diffuse nodularity and interstitial lung disease. Clinical correlation and follow-up recommended. Please see above discussion ASSESSMENT/PLAN: 67 yo F w/ PMH recurrent R Lung CA w/ metastatic breast Ca, COPD (2L, satting in 97%), chronic pleural effusions, asthma who presents to ED w/ malaise, body aches and generalized fatigue after chemo tx on . #COPD exacerbation - Likely secondary to PNA - 2L O2 tx per home dose. Maintain sat >97% - Duonebs QIDR, albuterol PRN - Decreased Solumedrol to 40mg BID - Compazine prn for N/V - c/w singulair, Symbicort - Tylenol for fever, pain - Thoracentesis per pulm recs #Neutropenia - WBC 2.1 -> 1.5 today; attempted to contact Dr. Thompson on chemo tx side effect profile, however unable to contact - neutropenic contact precautions - C/w levaquin for PNA coverage; low threshold for increase to empiric abx if new fever, worsening infectious symptoms #Bronchitis vs. PNA - Trend WBC, fever curve - Levofloxacin for empiric coverage, day 3/7 - f/u all cultures - f/u urine Ags #metastatic Lung CA/chronic pleural effusions - Likely pleural mets per pulm note; Pt oncologist Dr. Thompson; per IR, unable to drain pleural effusion given minimal fluid - Unable to send pleural studies as IR states too little fluid to tap; may need pleurex cathter per pulm recs - Heme/Onc consulted - Will require outpt follow-up w/ Dr. Thompson #Hyperkalemia - K 5.2 today - Daily BMPs - Tx as needed #HTN - c/w Verapamil - continue to hold home spironolactone/losartan given HyperKalemia #NIDDM - Cont home januvia - ISS - BGM - Neurontin #HLD - C/w home statin FEN - NS 75cc/hr - Daily BMPs, trend K - Diabetic diet/low K diet PPX heparin subq scds Plan discussed with Dr. Bharathi Francois, PGY1 Visit type - Emergency Visit Emergency Visit: Yes ED Registration Date: 05/07/17 Care time: The patient presented to the Emergency Department on the above date and was hospitalized for further evaluation of their emergent condition. - New Patient This patient is new to me today: Yes Date on this admission: 05/08/17 - Critical Care Critical Care patient: No
[2017-05-08] MEDS: HEPARIN NA (PORCINE) 5,000 UNITS/ML 1ML VIAL SQ SCH ×3 (06:25→22:11)
[2017-05-08] MEDS: sitaGLIPtin PHOSPHATE 50 MG TABLET PO SCH ×2 (06:26→08:32)
[2017-05-08 08:00] LABS: BASO % 0.3 % (0-2.0); EOS % 0.1 % (0-4.5); HEMATOCRIT 35.4 % (32.4-45.2); HEMOGLOBIN 10.9 GM/dL (10.7-15.3); LYMPH % 13.2 % (8-40); MCH 25.4 pg (25.7-33.7); MCHC 30.7 g/dl (32.0-36.0); MEAN CELL VOLUME 82.7 fl (80-96); MEAN PLT VOLUME 8.2 fl (7.5-11.1); MONO % 9.1 % (3.8-10.2); NEUT % 77.3 % (42.8-82.8); PLATELET COUNT 110 K/MM3 (134-434); RBC 4.29 M/mm3 (3.60-5.2); RDW 16.3 % (11.6-15.6); WHITE BLOOD COUNT 1.5 K/mm3 (4.0-10.0)
--- NOTE | 2017-05-08 08:09 | MSN ---
Progress Note (short form) - Note Progress Note: Subjective: Patient was seen this morning, was not short of breath and has had her nasal cannula off for 20 minutes because it makes her nose dry. O2 sat was 90% on room air. Patient also complains of lower back/ hip pain which has improved with tylenol and codeine. Patient has not had a BM since Friday but notes that she normally has BM every 2 -3 days. Patient denies N/V/D, chest pain, SOB. Objective: Last Vital Signs Temp Pulse Resp BP Pulse Ox 98.1 F 76 18 106/72 94 L 05/08/17 03:50 05/08/17 03:50 05/08/17 03:50 05/08/17 03:50 05/07/17 23:15 General: Patient is pleasant, appears comfortable and is in no acute distress. HEENT: pupils reactive to light on the right, unreactive to light on the left. dry mucous membranes. trachea midline. Heart: RRR, no murmurs, rubs or gallops. Lungs: improved air flow, wheezing appreciated B/L that is worse on the right. Abdomen: soft, nontender to palpation, nondistended. normoactive bowel sounds x4 Extremities: pulses 2+ B/L on UE and LE. No edema noted. CBC, BMP 05/08/17 06:30 05/08/17 06:30 Microbiology 05/07/17 01:08 Blood - Peripheral Venous Blood Culture - Preliminary NO GROWTH OBTAINED AFTER 24 HOURS, INCUBATION TO CONTINUE FOR 4 DAYS. 05/07/17 01:08 Blood - Peripheral Venous Blood Culture - Preliminary NO GROWTH OBTAINED AFTER 24 HOURS, INCUBATION TO CONTINUE FOR 4 DAYS. 05/07/17 07:55 Nasopharyngeal Swab Influenza Types A,B Antigen (ODESSA) - Final 05/07/17 07:55 Nasopharyngeal Swab - Final Home Medications Medication Instructions Recorded Albuterol Sulfate Inhaler - 1 - 2 inh PO Q4H 09/26/14 [Ventolin HFA Inhaler -] Sitagliptin Phosphate [Januvia] 100 mg PO DAILY 09/26/14 Spironolactone 25 mg PO DAILY 09/26/14 Verapamil HCl 240 mg PO DAILY 09/26/14 Acetaminophen W/ Codeine #3 1 tab PO PRN 10/10/16 [Tylenol # 3 -] Aspirin [ASA -] 81 mg PO DAILY 10/10/16 Gabapentin 300 mg PO DAILY 10/10/16 Losartan Potassium 25 mg PO DAILY 10/10/16 Montelukast Na [Singulair -] 10 mg PO HS 10/10/16 Folic Acid 1 mg PO DAILY 05/07/17 Salmeterol/Fluticasone [Advair 1 inh BID 05/07/17 250Mcg/50Mcg -] Imaging: chest CT 05/07/17: Interval slightly better aeration of the left lung with persistent interstitial and nodular opacities and masslike density in the left lower lobe, anteriorly measuring 2.1 cm without gross interval change. Mass- like density in the right upper lobe, anteriorly inseparable from the right superior mediastinum and with with tiny cystic changes again seen without gross interval change. Interval decrease right pleural effusion that remains moderate with a triangular-shaped low-attenuation density in the right lung base likely representing loculated fluid. EKG on 05/06/17: normal sinus rhythm, possible left atrial enlargement. Xray on 05/06/17: Suspected right lung mass and pleural effusion with diffuse nodularity and interstitial lung disease. Clinical correlation and follow-up recommended. Please see above discussion. Assessment/ Plan: 67 yo F with hx of lung cancer with brain mets s/p chemoradiation, COPD on 2L O2 at home who presented with hypoxia/dyspnea likely due to acute on chronic hypoxemic respiratory failure. # acute on chronic hypoxemic respiratory failure -- end stage COPD - consult pulmonology: Dr. Contreras - CT scan of chest noted above - 2L O2 nasal cannula maintain pulse ox >97% - Albuterol Sulfate (Ventolin Hfa Inhaler -) 2 puff IH Q4H PRN SOB/ wheezing - Albuterol/Ipratropium (Duoneb -) 1 amp NEB RQID SAEED - Methylprednisolone Sodium Succinate (Solu-Medrol -) 40 mg IVPUSH Q8H-IV SAEED - - taper down - Budesonide/Formoterol Fumarate (Symbicort 160/4.5mcg -) 2 puff IH BID SAEED - Montelukast Sodium (Singulair -) 10 mg PO HS ON LICENSE OF [facility] - antibiotics: Levofloxacin (Levaquin 250 Mg Premixed Ivpb -) 250 mg in 50 mls @ 100 mls/hr IVPB DAILY SAEED - thoracocentesis? # leukopenia/ neutropenia - secondary to cancer therapy - continue home medication of folate - neutropenia watch. # Hyperkalemia -monitor BMP # HTN - Verapamil HCl (Calan Sr -) 240 mg PO DAILY ON LICENSE OF [facility] # Hyperlipidimia - Atorvastatin Calcium (Lipitor -) 10 mg PO HS SAEED # NIDDM - continue home medication of Sitagliptin Phosphate (Januvia -) 100 mg PO DAILY @0700 SAEED - Insulin sliding scale - monitor blood glucose # chronic intermittent back pain - home med: Gabapentin (Neurontin -) 300 mg PO DAILY ON LICENSE OF [facility] # hx of lung adenocarcinoma - stable to mildly progressive dz - spoke to Dr. Thompson: patient was diagnosed with stage III adenocarcinoma in early 2014 and was treated with chemo + radiation. On Jan 2015, patient had metastasis to the brain and was managed with whole brain radiation. On July 2016, patient had 6 courses immunotherapy with Nivolumab and completed them. For the past 6 months, patient has been treated with Alimta q2-4 weeks. - continue outpt management # FEN - fluid: Sodium Chloride (Normal Saline -) 1,000 mls @ 50 mls/hr IV ASDIR ON LICENSE OF [facility] - electrolyte: hyperkalemia - continue to monitor - nutrition: PO # DVT prophylaxis: heparin 5000 units sq TIS SAEED
[2017-05-08 08:19] LABS: CHLORIDE 106 mmol/L (98-107); POTASSIUM 5.2 mmol/L (3.5-5.1); SODIUM 140 mmol/L (136-145)
[2017-05-08 08:30] LABS: ALBUMIN 2.8 g/dl (3.4-5.0); ALK PHOS 160 U/L (45-117); ANION GAP 9 (8-16); BILIRUBIN,TOTAL 0.3 mg/dL (0.2-1.0); BLOOD UREA NITROGEN 36 mg/dL (7-18); CO2 25 mmol/L (21-32); CREATININE 1.4 mg/dL (0.55-1.02); GLUCOSE,RANDOM 146 mg/dL (74-106); SGOT/AST 30 U/L (15-37); SGPT/ALT 29 U/L (12-78); TOT PROT 6.7 g/dl (6.4-8.2)
[2017-05-08] MEDS: ALBUTEROL SO4 2.5/IPRATROPIUM 0.5 INH SOL 3 ML VIAL.NEB. NEB SCH ×4 (08:45→20:28)
--- NOTE | 2017-05-08 09:01 | PN ---
Progress Note (short form) - Note Progress Note: Breathing feels about the same. Dry cough. Scheduled for a thoracentesis today. Intake & Output 05/05/17 05/06/17 05/07/17 05/08/17 23:59 23:59 23:59 23:59 Weight 141 lb 141 lb Last Vital Signs Temp Pulse Resp BP Pulse Ox 98.1 F 76 18 106/72 94 L 05/08/17 03:50 05/08/17 03:50 05/08/17 03:50 05/08/17 03:50 05/07/17 23:15 Active Medications Acetaminophen/Codeine Phosphate (Tylenol # 3 -) 1 tab PO Q6H PRN PRN Reason: PAIN LEVEL 6-10 Last Admin: 05/08/17 06:23 Dose: 1 tab Albuterol Sulfate (Ventolin Hfa Inhaler -) 2 puff IH Q4H PRN PRN Reason: SHORT OF BREATH/WHEEZING Albuterol/Ipratropium (Duoneb -) 1 amp NEB RQID [facility] Stop: 05/10/17 20:30 Last Admin: 05/07/17 23:53 Dose: Not Given Aspirin (Asa -) 81 mg PO DAILY [facility] Last Admin: 05/07/17 11:36 Dose: 81 mg Atorvastatin Calcium (Lipitor -) 10 mg PO [facility] Last Admin: 05/07/17 22:19 Dose: 10 mg Budesonide/Formoterol Fumarate (Symbicort 160/4.5mcg -) 2 puff IH BID [facility] Last Admin: 05/07/17 22:19 Dose: 4.5 puff Gabapentin (Neurontin -) 300 mg PO DAILY [facility] Last Admin: 05/07/17 11:37 Dose: 300 mg Heparin Sodium (Porcine) (Heparin -) 5,000 unit SQ TID [facility] Last Admin: 05/08/17 06:25 Dose: Not Given Levofloxacin (Levaquin 250 Mg Premixed Ivpb -) 250 mg in 50 mls @ 100 mls/hr IVPB DAILY [facility] Methylprednisolone Sodium Succinate (Solu-Medrol -) 40 mg IVPUSH Q8H-IV [facility] Last Admin: 05/08/17 01:47 Dose: 40 mg Montelukast Sodium (Singulair -) 10 mg PO HS [facility] Last Admin: 05/07/17 22:19 Dose: 10 mg Pantoprazole Sodium (Protonix -) 40 mg PO DAILY [facility] Prochlorperazine Edisylate (Compazine Injection -) 5 mg IM Q4H PRN PRN Reason: NAUSEA AND/OR VOMITING Sitagliptin Phosphate (Januvia -) 100 mg PO DAILY@0700 [facility] Last Admin: 05/08/17 08:32 Dose: 100 mg Verapamil HCl (Calan Sr -) 240 mg PO DAILY [facility] Last Admin: 05/07/17 11:37 Dose: 240 mg General: Awake and alert, NAD HEENT: dry mucous membranes. trachea midline. Heart: RRR, no murmurs, rubs or gallops. Lungs: diminished at the bases, scattered wheeze Abdomen: soft, nontender to palpation, nondistended. normoactive bowel sounds x4 Extremities: pulses 2+ B/L on UE and LE. No edema noted. Laboratory Results - last 24 hr 05/07/17 05/07/17 05/08/17 16:42 18:50 06:30 WBC 1.5 L* RBC 4.29 Hgb 10.9 Hct 35.4 MCV 82.7 MCH 25.4 L MCHC 30.7 L RDW 16.3 H Plt Count 110 L MPV 8.2 Neutrophils % 77.3 Lymphocytes % 13.2 D Monocytes % 9.1 D Eosinophils % 0.1 D Basophils % 0.3 Sodium 139 Potassium 5.0 Chloride 102 Carbon Dioxide 24 Anion Gap 13 BUN 32 H Creatinine 1.6 H Creat Clearance w eGFR POC Glucometer [id number] Random Glucose 155 H Calcium 8.4 L Total Bilirubin AST ALT Alkaline Phosphatase Total Protein Albumin 05/08/17 06:30 WBC RBC Hgb Hct MCV MCH MCHC RDW Plt Count MPV Neutrophils % Lymphocytes % Monocytes % Eosinophils % Basophils % Sodium 140 Potassium 5.2 H Chloride 106 Carbon Dioxide 25 Anion Gap 9 BUN 36 H Creatinine 1.4 H Creat Clearance w eGFR 37.39 POC Glucometer Random Glucose 146 H Calcium 8.0 L Total Bilirubin 0.3 AST 30 ALT 29 Alkaline Phosphatase 160 H Total Protein 6.7 Albumin 2.8 L Problem List - Problems (1) Acute and chronic respiratory failure with hypoxia Code(s): J96.21 - ACUTE AND CHRONIC RESPIRATORY FAILURE WITH HYPOXIA (2) Metastatic lung carcinoma Code(s): C78.00 - SECONDARY MALIGNANT NEOPLASM OF UNSPECIFIED LUNG (3) SOB (shortness of breath) Code(s): R06.02 - SHORTNESS OF BREATH (4) Chronic kidney disease (CKD) Code(s): N18.9 - CHRONIC KIDNEY DISEASE, UNSPECIFIED (5) Diabetes 1.5, managed as type 2 Code(s): E10.9 - TYPE 1 DIABETES MELLITUS WITHOUT COMPLICATIONS (6) Hypertension Code(s): I10 - ESSENTIAL (PRIMARY) HYPERTENSION (7) Hypoxia Code(s): R09.02 - HYPOXEMIA (8) Pleural effusion, right Code(s): J90 - PLEURAL EFFUSION, NOT ELSEWHERE CLASSIFIED IMP ACUTE AN CHRONIC HYPOXEMIC RESPIRATORY FAILURE/LYMPHANGITIC SPREAD END STAGE COPD METASTATIC LUNG CA WITH PLEURAL AND MINING PROFESSIONALS METS PLAN IV STEROIDS INHALED BRONCHODILATORS O2 ABX THORACENTESIS TODAY / AT SOME POINT SHE MAY NEED A PLEUREX DR MCKEE
[2017-05-08 09:55] LABS: INR 1.01 (0.82-1.09); PROTHROMBIN TIME (PATIENT) 11.4 SEC (9.98-11.88)
[2017-05-08] MEDS ORDERED: PT OWN MED DRAWER 7, Y5N ONE ×2 (10:30→22:03)
[2017-05-08] MEDS: PANTOPRAZOLE 40 MG TABLET (FP) PO SCH (10:31)
[2017-05-08] MEDS: GABAPENTIN 300 MG CAPSULE (FP) PO SCH (10:31)
[2017-05-08] MEDS: ASPIRIN 81 MG CHEWABLE TABLETS PO SCH (10:31)
[2017-05-08] MEDS: LEVOFLOXACIN 250 MG IVPB 250 MG/50 ML MG IVPB SCH (10:31)
[2017-05-08] MEDS: BUDESONIDE/FORMETEROL FUMARATE 160/4.5 mcg INHALER IH SCH ×2 (10:31→22:12)
[2017-05-08] MEDS: VERAPAMIL HCL 240 MG E.R. TABLET (FP) PO SCH (10:31)
[2017-05-08] MEDS: SODIUM CHLORIDE 1,000 ML IV SCH (10:58)
--- NOTE | 2017-05-08 17:44 | PN ---
Teaching Attending Note Name of Resident: Tyrell Francois ATTENDING PHYSICIAN STATEMENT Time of evaluation: 11:35 AM I saw and evaluated the patient. I reviewed the resident's note and discussed the case with the resident. I agree with the resident's findings and plan as documented. SUBJECTIVE: Patient seen and examined. Breathing improved, no new complaints. OBJECTIVE: Vital Signs Period Temp Pulse Resp BP Sys/Soto Pulse Ox Last 24 Hr 97.5 F-98.4 F 58-110 18-20 101-126/66-77 94-99 Intake & Output 05/05/17 05/06/17 05/07/17 05/08/17 23:59 23:59 23:59 23:59 Intake Total 650 Balance 650 Weight 141 lb 141 lb General: ambulating in room, in no acute distress CVS;S1s2 regular Chest: improved air entry and expiratory wheezing abdomen:soft, NT, ND, positive bowel sounds extremities: no edema Home Medication List Medication Instructions Recorded Confirmed Type Albuterol Sulfate Inhaler - 1 - 2 inh PO Q4H 09/26/14 05/07/17 History [Ventolin HFA Inhaler -] Sitagliptin Phosphate [Januvia] 100 mg PO DAILY 09/26/14 05/07/17 History Spironolactone 25 mg PO DAILY 09/26/14 05/07/17 History Verapamil HCl 240 mg PO DAILY 09/26/14 05/07/17 History Acetaminophen W/ Codeine #3 1 tab PO PRN 10/10/16 05/07/17 History [Tylenol # 3 -] Aspirin [ASA -] 81 mg PO DAILY 10/10/16 05/07/17 History Gabapentin 300 mg PO DAILY 10/10/16 05/07/17 History Losartan Potassium 25 mg PO DAILY 10/10/16 05/07/17 History Montelukast Na [Singulair -] 10 mg PO HS 10/10/16 05/07/17 History Folic Acid 1 mg PO DAILY 05/07/17 05/07/17 History Salmeterol/Fluticasone [Advair 1 inh BID 05/07/17 05/07/17 History 250Mcg/50Mcg -] Active Medications Generic Name Dose Route Start Last Admin Trade Name Freq PRN Reason Stop Dose Admin Acetaminophen/Codeine Phosphate 1 tab 05/07/17 03:30 05/08/17 06:23 Tylenol # 3 - PO 1 tab Q6H PRN Administration PAIN LEVEL 6-10 Albuterol Sulfate 2 puff 05/07/17 03:30 Ventolin Hfa Inhaler - IH Q4H PRN SHORT OF BREATH/WHEEZING Albuterol/Ipratropium 1 amp 05/07/17 08:00 05/08/17 16:39 Duoneb - NEB 05/10/17 20:30 1 amp RQID SAEED Administration Aspirin 81 mg 05/07/17 10:00 05/08/17 10:31 Asa - PO 81 mg DAILY SAEED Administration Atorvastatin Calcium 10 mg 05/07/17 22:00 05/07/17 22:19 Lipitor - PO 10 mg HS SAEED Administration Budesonide/Formoterol Fumarate 2 puff 05/07/17 10:00 05/08/17 10:31 Symbicort 160/4.5mcg - IH 2 puff BID SAEED Administration Folic Acid 1 mg 05/09/17 10:00 Folic Acid - PO DAILY SAEED Gabapentin 300 mg 05/07/17 10:00 05/08/17 10:31 Neurontin - PO 300 mg DAILY SAEED Administration Heparin Sodium (Porcine) 5,000 unit 05/07/17 06:00 05/08/17 13:48 Heparin - SQ Not Given TID SAEED Levofloxacin 250 mg in 50 mls @ 100 mls/hr 05/08/17 10:00 05/08/17 10:31 Levaquin 250 Mg Premixed Ivpb - IVPB 100 mls/hr DAILY SAEED Administration Sodium Chloride 1,000 mls @ 75 mls/hr 05/08/17 10:00 05/08/17 10:58 Normal Saline - IV 75 mls/hr ASDIR SAEED Administration Methylprednisolone Sodium Succinate 40 mg 05/07/17 01:30 05/08/17 10:31 Solu-Medrol - IVPUSH 40 mg Q8H-IV SAEED Administration Montelukast Sodium 10 mg 05/07/17 22:00 05/07/17 22:19 Singulair - PO 10 mg HS SAEED Administration Pantoprazole Sodium 40 mg 05/08/17 10:00 05/08/17 10:31 Protonix - PO 40 mg DAILY SAEED Administration Prochlorperazine Edisylate 5 mg 05/07/17 13:18 Compazine Injection - IM Q4H PRN NAUSEA AND/OR VOMITING Sitagliptin Phosphate 100 mg 05/08/17 07:00 05/08/17 08:32 Januvia - PO 100 mg DAILY@0700 SAEED Administration Verapamil HCl 240 mg 05/07/17 10:00 05/08/17 10:31 Calan Sr - PO 240 mg DAILY SAEED Administration Laboratory Results - last 24 hr 05/07/17 05/08/17 05/08/17 18:50 06:30 06:30 WBC 1.5 L* RBC 4.29 Hgb 10.9 Hct 35.4 MCV 82.7 MCH 25.4 L MCHC 30.7 L RDW 16.3 H Plt Count 110 L MPV 8.2 Neutrophils % 77.3 Lymphocytes % 13.2 D Monocytes % 9.1 D Eosinophils % 0.1 D Basophils % 0.3 PT with INR INR Sodium 139 140 Potassium 5.0 5.2 H Chloride 102 106 Carbon Dioxide 24 25 Anion Gap 13 9 BUN 32 H 36 H Creatinine 1.6 H 1.4 H Creat Clearance w eGFR 37.39 Random Glucose 155 H 146 H Calcium 8.4 L 8.0 L Total Bilirubin 0.3 AST 30 ALT 29 Alkaline Phosphatase 160 H Total Protein 6.7 Albumin 2.8 L 05/08/17 09:07 WBC RBC Hgb Hct MCV MCH MCHC RDW Plt Count MPV Neutrophils % Lymphocytes % Monocytes % Eosinophils % Basophils % PT with INR 11.40 INR 1.01 Sodium Potassium Chloride Carbon Dioxide Anion Gap BUN Creatinine Creat Clearance w eGFR Random Glucose Calcium Total Bilirubin AST ALT Alkaline Phosphatase Total Protein Albumin Microbiology 05/08/17 09:15 Urine For Antigen Detection Legionella Antigen - Final 05/08/17 09:15 Urine For Antigen Detection Streptococcus pneumoniae Antigen (M - Final 05/07/17 01:08 Blood - Peripheral Venous Blood Culture - Preliminary NO GROWTH OBTAINED AFTER 24 HOURS, INCUBATION TO CONTINUE FOR 4 DAYS. 05/07/17 01:08 Blood - Peripheral Venous Blood Culture - Preliminary NO GROWTH OBTAINED AFTER 24 HOURS, INCUBATION TO CONTINUE FOR 4 DAYS. 05/07/17 07:55 Nasopharyngeal Swab Influenza Types A,B Antigen (ODESSA) - Final 05/07/17 07:55 Nasopharyngeal Swab - Final ASSESSMENT AND PLAN: 67 yof with pMhx of Lung Ca s/p chemoradiation, Mets to brain, currently on ? immunotherapy, COPD on 2L home oxygen admitted with dsypnea/hypoxia -Acute COPD exacerbation -Acute bronchitis vs early pneumonia -Neutropenia -Hyperkalemia -HTN -NIDDM Plan: CT chest noted, plan for diagnostic thoracentesis, but unable to perform given minimal fluid as discussed. Will follow up with pulmonary. Taper solumedrol. standing nebs. Currently at baseline oxygen supplementation Continue levaquin for now. SPutum cultures. Follow up urine PNA studies. Hold spironolactone and losartan. Place on Low K diet. Continue gentle hydration , IVF bolus x 1. Monitor K levels. Place on neutropenic precautions. Monitor for fevers, low threshold for broad spectrum antibiotics but hold off as continues to improve clinically. Oncology consult with Dr. Thompson. Continue sitagliptin, ISS, diabetic diet. Place on GIPPX given high dose steroids. DVTPPX with heparin Dispo planning pending improvement in symptoms. Plan discussed with patient in detail, all questions answered.
[2017-05-08] MEDS ORDERED: SODIUM CHLORIDE 500 ML IV STA (17:45)
[2017-05-08] MEDS: ATORVASTATIN CA 10 MG TABLET (FP) PO SCH (22:11)
[2017-05-08] MEDS: MONTELUKAST NA 10 MG TABLET PO SCH (22:11)
[2017-05-09] MEDS: SODIUM CHLORIDE 1,000 ML IV SCH ×3 (03:01→17:50)
--- NOTE | 2017-05-09 05:21 | PN ---
Physical Exam: SUBJECTIVE: Patient seen and examined by me this AM - One episode of bradycardia overnight to 59. Pt complaining of back pain from being bedbound. Complaining of epigastric pain/discomfort, likely constipation as pt has not had BM since admission. Still with productive cough, SOB. States her breathing is slightly better. Denies any fever, FARIAS/dizzines, CP, N/V, dysuria, diarrhea, new rashes. OBJECTIVE: Vital Signs Intake & Output 05/06/17 05/07/17 05/08/17 05/09/17 23:59 23:59 23:59 23:59 Intake Total 1025 Balance 1025 Weight 63.957 kg 63.957 kg Period Temp Pulse Resp BP Sys/Soto Pulse Ox Last 24 Hr 97.5 F-98.4 F 59-110 20-20 101-126/66-77 98-99 GENERAL: Elderly woman laying in bed in [facility]. The patient is awake, alert, and fully oriented. HEAD: Normal with no signs of trauma. EYES: L eye poorly reactive to light. extraocular movements intact, sclera anicteric, conjunctiva clear. No ptosis. ENT: Poor dnetition. Ears normal, nares patent, oropharynx clear without exudates, moist mucous membranes. NECK: Trachea midline, full range of motion, supple. LUNGS: Diffuse BL expiratory wheezes, coarse breath sounds BL in Upper lobes. Decreased breath sounds at RLL. HEART: Regular rate and rhythm, S1, S2 without murmur, rub or gallop. ABDOMEN: Mild tender/uncomfortable to palpation in all 4 quadrants. Neg murphys. Non-distended, normoactive bowels sounds. No guarding, no rebounds EXTREMITIES: 2+ pulses, warm, well-perfused, no edema. NEUROLOGICAL: Cranial nerves II through XII grossly intact. Normal speech, gait not observed. PSYCH: Normal mood, normal affect. SKIN: Warm, dry, normal turgor, no rashes or lesions noted Laboratory Results - last 24 hr CBC, BMP 05/08/17 06:30 05/08/17 06:30 05/08/17 05/08/17 05/08/17 06:30 06:30 09:07 WBC 1.5 L* RBC 4.29 Hgb 10.9 Hct 35.4 MCV 82.7 MCH 25.4 L MCHC 30.7 L RDW 16.3 H Plt Count 110 L MPV 8.2 Neutrophils % 77.3 Lymphocytes % 13.2 D Monocytes % 9.1 D Eosinophils % 0.1 D Basophils % 0.3 PT with INR 11.40 INR 1.01 Sodium 140 Potassium 5.2 H Chloride 106 Carbon Dioxide 25 Anion Gap 9 BUN 36 H Creatinine 1.4 H Creat Clearance w eGFR 37.39 Random Glucose 146 H Calcium 8.0 L Total Bilirubin 0.3 AST 30 ALT 29 Alkaline Phosphatase 160 H Total Protein 6.7 Albumin 2.8 L Active Medications Generic Name Dose Route Start Last Admin Trade Name Freq PRN Reason Stop Dose Admin Acetaminophen/Codeine Phosphate 1 tab 05/07/17 03:30 05/08/17 06:23 Tylenol # 3 - PO 1 tab Q6H PRN Administration PAIN LEVEL 6-10 Albuterol Sulfate 2 puff 05/07/17 03:30 Ventolin Hfa Inhaler - IH Q4H PRN SHORT OF BREATH/WHEEZING Albuterol/Ipratropium 1 amp 05/07/17 08:00 05/08/17 20:28 Duoneb - NEB 05/10/17 20:30 1 amp RQID SAEED Administration Aspirin 81 mg 05/07/17 10:00 05/08/17 10:31 Asa - PO 81 mg DAILY SAEED Administration Atorvastatin Calcium 10 mg 05/07/17 22:00 05/08/17 22:11 Lipitor - PO 10 mg HS SAEED Administration Budesonide/Formoterol Fumarate 2 puff 05/07/17 10:00 05/08/17 22:12 Symbicort 160/4.5mcg - IH 2 puff BID SAEED Administration Folic Acid 1 mg 05/09/17 10:00 Folic Acid - PO DAILY SAEED Gabapentin 300 mg 05/07/17 10:00 05/08/17 10:31 Neurontin - PO 300 mg DAILY SAEED Administration Heparin Sodium (Porcine) 5,000 unit 05/07/17 06:00 05/08/17 22:11 Heparin - SQ 5,000 unit TID SAEED Administration Levofloxacin 250 mg in 50 mls @ 100 mls/hr 05/08/17 10:00 05/08/17 10:31 Levaquin 250 Mg Premixed Ivpb - IVPB 100 mls/hr DAILY SAEED Administration Sodium Chloride 1,000 mls @ 75 mls/hr 05/08/17 10:00 05/09/17 03:01 Normal Saline - IV 75 mls/hr ASDIR SAEED Administration Methylprednisolone Sodium Succinate 40 mg 05/08/17 22:00 05/08/17 22:12 Solu-Medrol - IVPUSH 40 mg BID SAEED Administration Montelukast Sodium 10 mg 05/07/17 22:00 05/08/17 22:11 Singulair - PO 10 mg HS SAEED Administration Pantoprazole Sodium 40 mg 05/08/17 10:00 05/08/17 10:31 Protonix - PO 40 mg DAILY SAEED Administration Prochlorperazine Edisylate 5 mg 05/07/17 13:18 Compazine Injection - IM Q4H PRN NAUSEA AND/OR VOMITING Sitagliptin Phosphate 100 mg 05/08/17 07:00 05/08/17 08:32 Januvia - PO 100 mg DAILY@0700 SAEED Administration Verapamil HCl 240 mg 05/07/17 10:00 05/08/17 10:31 Calan Sr - PO 240 mg DAILY SAEED Administration Microbiology 05/07/17 01:08 Blood - Peripheral Venous Blood Culture - Preliminary NO GROWTH OBTAINED AFTER 48 HOURS, INCUBATION TO CONTINUE FOR 3 DAYS. 05/07/17 01:08 Blood - Peripheral Venous Blood Culture - Preliminary NO GROWTH OBTAINED AFTER 48 HOURS, INCUBATION TO CONTINUE FOR 3 DAYS. 05/08/17 09:15 Urine For Antigen Detection Legionella Antigen - Final 05/08/17 09:15 Urine For Antigen Detection Streptococcus pneumoniae Antigen (M - Final 05/07/17 07:55 Nasopharyngeal Swab Influenza Types A,B Antigen (ODESSA) - Final 05/07/17 07:55 Nasopharyngeal Swab - Final CT Chest 05/07 - IMPRESSION: Interval slightly better aeration of the left lung with persistent interstitial and nodular opacities and masslike density in the left lower lobe, anteriorly measuring 2.1 cm without gross interval change. Masslike density in the right upper lobe, anteriorly inseparable from the right superior mediastinum and with with tiny cystic changes again seen without gross interval change. Interval decrease right pleural effusion that remains moderate with a triangular-shaped low-attenuation density in the right lung base likely representing loculated fluid. Continued close follow-up is recommended. CXR 05/06 - Suspected right lung mass and pleural effusion with diffuse nodularity and interstitial lung disease. Clinical correlation and follow-up recommended. Please see above discussion ASSESSMENT/PLAN: 67 yo F w/ PMH recurrent R Lung CA w/ metastatic breast Ca, COPD (2L, satting in 97%), chronic pleural effusions, asthma who presents to ED w/ malaise, body aches and generalized fatigue after chemo tx on . #COPD exacerbation - secondary to suspected PNA - Duonebs QID, Ventolin PRN - Home O2 2l; maintain sat above 97% - medrol 40 BID today. f/u pulm recs - will cont Singulair, Symbicort per home meds - Tylenol for pain, fever - No thora given limited fluid - pulm consulted, recs appreciated #Neutropenia - attempt made to contact Dr. Perez on chemo tx (if causes neutropenia); will try again today - Day 4 of levaquin; may expand abx coverage if worsening infectious symptoms - Neutropenia contact precautions - F/u w/ dr. Perez #Bronchitis vs. PNA - no fever overnight - Urine ags neg, flu neg - trend fever, wbc - levaquin for PNA coverage #Lung CA - pleural mets 2/2 lung ca per pulm - Cannot tap pleural effusion due to minimal fluid per IR - F/u pulm recs on need for pleurex cath - Heme/Onc consulted - Will reach out again today to dr. perez - pulm consulted #Hyperkalemia - 5.2 yesterday - Daily BMPs - f/u AM labs #HTN - c/w Verapamil - holding K-sparing HTN meds due to hyperK #NIDDM - januvia per home meds - Neurontin for neuropathy - ISS, BGM #HLD -home statin FEN - NS 75cc/hr - Daily BMPs - low K diet, diabetic PPX HSQ c/w scds Plan discussed with Dr. Bharathi Francois, PGY1 Visit type - Emergency Visit Emergency Visit: Yes ED Registration Date: 05/07/17 Care time: The patient presented to the Emergency Department on the above date and was hospitalized for further evaluation of their emergent condition. - New Patient This patient is new to me today: No - Critical Care Critical Care patient: No
[2017-05-09] MEDS: ACETAMINOPHEN WITH CODEINE 300MG/30MG TABLET PO PRN (05:56)
[2017-05-09] MEDS: HEPARIN NA (PORCINE) 5,000 UNITS/ML 1ML VIAL SQ SCH ×3 (06:04→22:18)
--- NOTE | 2017-05-09 06:42 | MSN ---
Progress Note (short form) - Note Progress Note: Subjective: Patient was seen this morning and complains on SOB when she is walking. Not SOB lying down, on nasal cannula 2L. Patient complains of lower back/ hip pain managed with tylenol w/codeine. Patient states she has been passing gas but has not had a bowel movement since Friday. Objective: Last Vital Signs Temp Pulse Resp BP Pulse Ox 97.9 F 77 20 113/70 99 05/09/17 14:22 05/09/17 14:22 05/09/17 14:22 05/09/17 14:22 05/09/17 09:00 General: Patient is confortable, resting in bed, no acute distress. HEENT: PERRLA. nasal cannula in placed. trachea midline Heart: RRR. no murmurs, rubs or gallops appreciated Lungs: diminished airflow B/L, wheezing appreciated throughout. Abdomen: soft, nontender to palpation, normoactive bowel sounds. Extremities: 2+ pulses B/L on UE/ LE. No edema noted. Well perfused. CBC, BMP 05/09/17 07:20 05/09/17 07:20 Abnormal Lab Results 05/09/17 07:20 Chloride 111 H BUN 30 H Creatinine 1.2 H Random Glucose 129 H Calcium 7.5 L Alkaline Phosphatase 141 H Total Protein 6.2 L Albumin 2.7 L Home Medications Medication Instructions Recorded Albuterol Sulfate Inhaler - 1 - 2 inh PO Q4H 09/26/14 [Ventolin HFA Inhaler -] Sitagliptin Phosphate [Januvia] 100 mg PO DAILY 09/26/14 Spironolactone 25 mg PO DAILY 09/26/14 Verapamil HCl 240 mg PO DAILY 09/26/14 Acetaminophen W/ Codeine #3 1 tab PO PRN 10/10/16 [Tylenol # 3 -] Aspirin [ASA -] 81 mg PO DAILY 10/10/16 Gabapentin 300 mg PO DAILY 10/10/16 Losartan Potassium 25 mg PO DAILY 10/10/16 Montelukast Na [Singulair -] 10 mg PO HS 10/10/16 Folic Acid 1 mg PO DAILY 05/07/17 Salmeterol/Fluticasone [Advair 1 inh BID 05/07/17 250Mcg/50Mcg -] Imaging: chest CT 05/07/17: Interval slightly better aeration of the left lung with persistent interstitial and nodular opacities and masslike density in the left lower lobe, anteriorly measuring 2.1 cm without gross interval change. Mass- like density in the right upper lobe, anteriorly inseparable from the right superior mediastinum and with with tiny cystic changes again seen without gross interval change. Interval decrease right pleural effusion that remains moderate with a triangular-shaped low-attenuation density in the right lung base likely representing loculated fluid. EKG on 05/06/17: normal sinus rhythm, possible left atrial enlargement. Xray on 05/06/17: Suspected right lung mass and pleural effusion with diffuse nodularity and interstitial lung disease. Clinical correlation and follow-up recommended. Please see above discussion. Assessment/ Plan: 67 yo F with hx of lung cancer with brain mets s/p chemoradiation, COPD on 2L O2 at home who presented with hypoxia/dyspnea likely due to acute on chronic hypoxemic respiratory failure. # acute on chronic hypoxemic respiratory failure -- end stage COPD - on 2K O2 nasal cannula- setting well - ventolin 2 puff q4h prn - duoneb qid - solu-medrol 40mg BID. tapered. - symbicort 2 puff BID - montelukast (singulair) 10mg qhs - continue levofloxacin (levaquin) 250mg - pulmonologis: Dr. Contreras - may need thoracocentesis. # leukopenia/ neutropenia - secondary to cancer therapy - continue home medication of folate - neutropenia. broad spectrum if fever - will consult Dr. Thompson # Hyperkalemia -monitor BMP - hold spironolactone and losartan # HTN - Verapamil HCl (Calan Sr -) 240 mg PO DAILY [facility] # Hyperlipidimia - Atorvastatin Calcium (Lipitor -) 10 mg PO HS SAEED # NIDDM - continue home medication of Sitagliptin Phosphate (Januvia -) 100 mg PO DAILY @0700 SAEED - Insulin sliding scale - monitor blood glucose # chronic intermittent back pain - home med: Gabapentin (Neurontin -) 300 mg PO DAILY SAEED # hx of lung adenocarcinoma - stable to mildly progressive dz - spoke to Dr. Thompson: patient was diagnosed with stage III adenocarcinoma in early 2014 and was treated with chemo + radiation. On Jan 2015, patient had metastasis to the brain and was managed with whole brain radiation. On July 2016, patient had 6 courses immunotherapy with Nivolumab and completed them. For the past 6 months, patient has been treated with Alimta q2-4 weeks. - continue outpt management # FEN - fluid: Sodium Chloride (Normal Saline -) 1,000 mls @ 50 mls/hr IV ASDIR SAEED - electrolyte: hyperkalemia - continue to monitor - nutrition: PO # DVT prophylaxis: heparin 5000 units sq TIS SAEED
[2017-05-09 08:20] LABS: HEMATOCRIT 34.2 % (32.4-45.2); HEMOGLOBIN 10.3 GM/dL (10.7-15.3); MCH 25.1 pg (25.7-33.7); MCHC 30.2 g/dl (32.0-36.0); MEAN CELL VOLUME 83.1 fl (80-96); MEAN PLT VOLUME 8.8 fl (7.5-11.1); PLATELET COUNT 102 K/MM3 (134-434); RBC 4.11 M/mm3 (3.60-5.2); RDW 16.4 % (11.6-15.6)
[2017-05-09] MEDS: ALBUTEROL SO4 2.5/IPRATROPIUM 0.5 INH SOL 3 ML VIAL.NEB. NEB SCH ×4 (08:25→20:30)
[2017-05-09 08:36] LABS: ALBUMIN 2.7 g/dl (3.4-5.0); ANION GAP 8 (8-16); BLOOD UREA NITROGEN 30 mg/dL (7-18); CALCIUM 7.5 mg/dL (8.5-10.1); CHLORIDE 111 mmol/L (98-107); CO2 25 mmol/L (21-32); CREATININE 1.2 mg/dL (0.55-1.02); GLUCOSE,RANDOM 129 mg/dL (74-106); POTASSIUM 4.8 mmol/L (3.5-5.1); SGOT/AST 31 U/L (15-37); SGPT/ALT 32 U/L (12-78); SODIUM 144 mmol/L (136-145)
[2017-05-09 08:38] LABS: ALK PHOS 141 U/L (45-117); BILIRUBIN,TOTAL 0.3 mg/dL (0.2-1.0); TOT PROT 6.2 g/dl (6.4-8.2)
[2017-05-09 09:12] LABS: WHITE BLOOD COUNT 1.9 K/mm3 (4.0-10.0)
[2017-05-09] MEDS: sitaGLIPtin PHOSPHATE 50 MG TABLET PO SCH (09:29)
[2017-05-09] MEDS: FOLIC ACID 1 MG TABLET (FP) PO SCH (09:33)
[2017-05-09] MEDS: ASPIRIN 81 MG CHEWABLE TABLETS PO SCH (09:33)
[2017-05-09] MEDS: VERAPAMIL HCL 240 MG E.R. TABLET (FP) PO SCH (09:33)
[2017-05-09] MEDS: BUDESONIDE/FORMETEROL FUMARATE 160/4.5 mcg INHALER IH SCH ×2 (09:34→22:19)
[2017-05-09] MEDS: GABAPENTIN 300 MG CAPSULE (FP) PO SCH (09:34)
[2017-05-09] MEDS: PANTOPRAZOLE 40 MG TABLET (FP) PO SCH (09:34)
[2017-05-09] MEDS: methylPREDNISolone NA SUCC 40 MG/1 ML VIAL IVPUSH SCH ×2 (09:34→22:19)
[2017-05-09] MEDS: LEVOFLOXACIN 250 MG IVPB 250 MG/50 ML MG IVPB SCH (09:34)
--- NOTE | 2017-05-09 11:18 | PN ---
Progress Note, Physician Chief Complaint: sob/cough - Current Medication List Current Medications: Active Medications Acetaminophen/Codeine Phosphate (Tylenol # 3 -) 1 tab PO Q6H PRN PRN Reason: PAIN LEVEL 6-10 Last Admin: 05/09/17 05:56 Dose: 1 tab Albuterol Sulfate (Ventolin Hfa Inhaler -) 2 puff IH Q4H PRN PRN Reason: SHORT OF BREATH/WHEEZING Albuterol/Ipratropium (Duoneb -) 1 amp NEB RQID [facility] Stop: 05/10/17 20:30 Last Admin: 05/09/17 08:25 Dose: 1 amp Aspirin (Asa -) 81 mg PO DAILY [facility] Last Admin: 05/09/17 09:33 Dose: 81 mg Atorvastatin Calcium (Lipitor -) 10 mg PO HS [facility] Last Admin: 05/08/17 22:11 Dose: 10 mg Budesonide/Formoterol Fumarate (Symbicort 160/4.5mcg -) 2 puff IH BID [facility] Last Admin: 05/09/17 09:34 Dose: 2 puff Folic Acid (Folic Acid -) 1 mg PO DAILY [facility] Last Admin: 05/09/17 09:33 Dose: 1 mg Gabapentin (Neurontin -) 300 mg PO DAILY [facility] Last Admin: 05/09/17 09:34 Dose: 300 mg Heparin Sodium (Porcine) (Heparin -) 5,000 unit SQ TID [facility] Last Admin: 05/09/17 06:04 Dose: 5,000 unit Levofloxacin (Levaquin 250 Mg Premixed Ivpb -) 250 mg in 50 mls @ 100 mls/hr IVPB DAILY [facility] Last Admin: 05/09/17 09:34 Dose: 100 mls/hr Sodium Chloride (Normal Saline -) 1,000 mls @ 75 mls/hr IV ASDIR [facility] Last Admin: 05/09/17 03:01 Dose: 75 mls/hr Methylprednisolone Sodium Succinate (Solu-Medrol -) 40 mg IVPUSH BID [facility] Last Admin: 05/09/17 09:34 Dose: 40 mg Montelukast Sodium (Singulair -) 10 mg PO HS [facility] Last Admin: 05/08/17 22:11 Dose: 10 mg Pantoprazole Sodium (Protonix -) 40 mg PO DAILY [facility] Last Admin: 05/09/17 09:34 Dose: 40 mg Prochlorperazine Edisylate (Compazine Injection -) 5 mg IM Q4H PRN PRN Reason: NAUSEA AND/OR VOMITING Sitagliptin Phosphate (Januvia -) 100 mg PO DAILY@0700 [facility] Last Admin: 05/09/17 09:29 Dose: Not Given Verapamil HCl (Calan Sr -) 240 mg PO DAILY [facility] Last Admin: 05/09/17 09:33 Dose: 240 mg - Objective Vital Signs: Vital Signs Temperature 98.4 F 05/09/17 09:28 Pulse Rate 60 05/09/17 09:28 Respiratory Rate 20 05/09/17 09:28 Blood Pressure 133/87 05/09/17 09:28 O2 Sat by Pulse Oximetry (%) 98 05/08/17 21:00 Constitutional: Yes: Calm Eyes: Yes: EOM Intact HENT: Yes: Normocephalic Neck: Yes: Trachea Midline Cardiovascular: Yes: Regular Rate and Rhythm, S1, S2 Respiratory: Yes: Diminished (right base extending up 1/4 lung field) Gastrointestinal: Yes: Soft Edema: No Labs: CBC, BMP 05/09/17 07:20 05/09/17 07:20 INR, PTT INR 1.01 (0.82-1.09) 05/08/17 09:07 Problem List - Problems (1) Acute and chronic respiratory failure with hypoxia Code(s): J96.21 - ACUTE AND CHRONIC RESPIRATORY FAILURE WITH HYPOXIA (2) Metastatic lung carcinoma Code(s): C78.00 - SECONDARY MALIGNANT NEOPLASM OF UNSPECIFIED LUNG (3) SOB (shortness of breath) Code(s): R06.02 - SHORTNESS OF BREATH (4) Acute respiratory failure with hypoxia Code(s): J96.01 - ACUTE RESPIRATORY FAILURE WITH HYPOXIA (5) Chronic kidney disease (CKD) Code(s): N18.9 - CHRONIC KIDNEY DISEASE, UNSPECIFIED Assessment/Plan WILL SPEAK WITH IR REGARDING AMOUNT OF PLEURAL FLUID PRESENT AND NEED FOR TAP FLUID IS LIKELY NEOPLASTIC WOULD CONTINUE BRONCHODILATORS/O2/SINGULAIR/STEROIDS FOR NOW DVT PROPHYLAXSIS/ANTIBIOTICS Henrietta BAGLEY MD
[2017-05-09 11:44] LABS: ANISOCYTOSIS 1+; MACROCYTOSIS 1+; PLATELET ESTIMATE DECREASED
--- NOTE | 2017-05-09 18:49 | PN ---
Teaching Attending Note Name of Resident: Tyrell Francois ATTENDING PHYSICIAN STATEMENT Time of evaluation: 1:30 PM I saw and evaluated the patient. I reviewed the resident's note and discussed the case with the resident. I agree with the resident's findings and plan as documented. SUBJECTIVE: Patient seen and examined, breathing continues to improve. No new concerns. OBJECTIVE: Vital Signs Period Temp Pulse Resp BP Sys/Soto Pulse Ox Last 24 Hr 97.7 F-98.4 F 59-77 20-20 111-133/70-87 98-99 Intake & Output 05/06/17 05/07/17 05/08/17 05/09/17 23:59 23:59 23:59 23:59 Intake Total 1025 1250 Balance 1025 1250 Weight 141 lb 141 lb general: sitting in bed having lunch, no acute distress Chest: improved air entry and expiratory wheezing today Home Medication List Medication Instructions Recorded Confirmed Type Albuterol Sulfate Inhaler - 1 - 2 inh PO Q4H 09/26/14 05/07/17 History [Ventolin HFA Inhaler -] Sitagliptin Phosphate [Januvia] 100 mg PO DAILY 09/26/14 05/07/17 History Spironolactone 25 mg PO DAILY 09/26/14 05/07/17 History Verapamil HCl 240 mg PO DAILY 09/26/14 05/07/17 History Acetaminophen W/ Codeine #3 1 tab PO PRN 10/10/16 05/07/17 History [Tylenol # 3 -] Aspirin [ASA -] 81 mg PO DAILY 10/10/16 05/07/17 History Gabapentin 300 mg PO DAILY 10/10/16 05/07/17 History Losartan Potassium 25 mg PO DAILY 10/10/16 05/07/17 History Montelukast Na [Singulair -] 10 mg PO HS 10/10/16 05/07/17 History Folic Acid 1 mg PO DAILY 05/07/17 05/07/17 History Salmeterol/Fluticasone [Advair 1 inh BID 05/07/17 05/07/17 History 250Mcg/50Mcg -] Active Medications Generic Name Dose Route Start Last Admin Trade Name Freq PRN Reason Stop Dose Admin Acetaminophen/Codeine Phosphate 1 tab 05/07/17 03:30 05/09/17 05:56 Tylenol # 3 - PO 1 tab Q6H PRN Administration PAIN LEVEL 6-10 Albuterol Sulfate 2 puff 05/07/17 03:30 Ventolin Hfa Inhaler - IH Q4H PRN SHORT OF BREATH/WHEEZING Albuterol/Ipratropium 1 amp 05/07/17 08:00 05/09/17 16:14 Duoneb - NEB 05/10/17 20:30 1 amp RQID SAEED Administration Aspirin 81 mg 05/07/17 10:00 05/09/17 09:33 Asa - PO 81 mg DAILY SAEED Administration Atorvastatin Calcium 10 mg 05/07/17 22:00 05/08/17 22:11 Lipitor - PO 10 mg HS SAEED Administration Budesonide/Formoterol Fumarate 2 puff 05/07/17 10:00 05/09/17 09:34 Symbicort 160/4.5mcg - IH 2 puff BID SAEED Administration Folic Acid 1 mg 05/09/17 10:00 05/09/17 09:33 Folic Acid - PO 1 mg DAILY SAEED Administration Gabapentin 300 mg 05/07/17 10:00 05/09/17 09:34 Neurontin - PO 300 mg DAILY SAEED Administration Heparin Sodium (Porcine) 5,000 unit 05/07/17 06:00 05/09/17 14:21 Heparin - SQ 5,000 unit TID SAEED Administration Levofloxacin 250 mg in 50 mls @ 100 mls/hr 05/08/17 10:00 05/09/17 09:34 Levaquin 250 Mg Premixed Ivpb - IVPB 100 mls/hr DAILY SAEED Administration Sodium Chloride 1,000 mls @ 75 mls/hr 05/08/17 10:00 05/09/17 17:50 Normal Saline - IV 75 mls/hr ASDIR SAEED Administration Methylprednisolone Sodium Succinate 40 mg 05/08/17 22:00 05/09/17 09:34 Solu-Medrol - IVPUSH 40 mg BID SAEED Administration Montelukast Sodium 10 mg 05/07/17 22:00 05/08/17 22:11 Singulair - PO 10 mg HS SAEED Administration Pantoprazole Sodium 40 mg 05/08/17 10:00 05/09/17 09:34 Protonix - PO 40 mg DAILY SAEED Administration Prednisone 60 mg 05/10/17 10:00 Deltasone - PO DAILY SAEED Prochlorperazine Edisylate 5 mg 05/07/17 13:18 Compazine Injection - IM Q4H PRN NAUSEA AND/OR VOMITING Sitagliptin Phosphate 100 mg 05/08/17 07:00 05/09/17 09:29 Januvia - PO Not Given DAILY@0700 SAEED Verapamil HCl 240 mg 05/07/17 10:00 05/09/17 09:33 Calan Sr - PO 240 mg DAILY SAEED Administration Laboratory Results - last 24 hr 05/09/17 05/09/17 05/09/17 07:20 07:20 11:52 WBC 1.9 L* RBC 4.11 Hgb 10.3 L Hct 34.2 MCV 83.1 MCH 25.1 L MCHC 30.2 L RDW 16.4 H Plt Count 102 L MPV 8.8 Neutrophils % No Result Required. Neutrophils % (Manual) 72.7 Band Neutrophils % 0.0 Lymphocytes % No Result Required. Lymphocytes % (Manual) 8.1 Monocytes % (Manual) 15 H Eosinophils % (Manual) 0.0 Basophils % (Manual) 0.0 Myelocytes % (Man) 0 Metamyelocytes 0 Hypochromia 1+ Platelet Estimate Decreased Polychromasia 3+ Poikilocytosis 0 Anisocytosis 1+ Microcytosis 1+ Macrocytosis 1+ Sodium 144 Potassium 4.8 Chloride 111 H Carbon Dioxide 25 Anion Gap 8 BUN 30 H Creatinine 1.2 H Creat Clearance w eGFR 44.68 POC Glucometer 127 Random Glucose 129 H Calcium 7.5 L Total Bilirubin 0.3 AST 31 ALT 32 Alkaline Phosphatase 141 H Total Protein 6.2 L Albumin 2.7 L 05/09/17 17:32 WBC RBC Hgb Hct MCV MCH MCHC RDW Plt Count MPV Neutrophils % Neutrophils % (Manual) Band Neutrophils % Lymphocytes % Lymphocytes % (Manual) Monocytes % (Manual) Eosinophils % (Manual) Basophils % (Manual) Myelocytes % (Man) Metamyelocytes Hypochromia Platelet Estimate Polychromasia Poikilocytosis Anisocytosis Microcytosis Macrocytosis Sodium Potassium Chloride Carbon Dioxide Anion Gap BUN Creatinine Creat Clearance w eGFR POC Glucometer 137 Random Glucose Calcium Total Bilirubin AST ALT Alkaline Phosphatase Total Protein Albumin Microbiology 05/07/17 01:08 Blood - Peripheral Venous Blood Culture - Preliminary NO GROWTH OBTAINED AFTER 48 HOURS, INCUBATION TO CONTINUE FOR 3 DAYS. 05/07/17 01:08 Blood - Peripheral Venous Blood Culture - Preliminary NO GROWTH OBTAINED AFTER 48 HOURS, INCUBATION TO CONTINUE FOR 3 DAYS. 05/08/17 09:15 Urine For Antigen Detection Legionella Antigen - Final 05/08/17 09:15 Urine For Antigen Detection Streptococcus pneumoniae Antigen (M - Final 05/07/17 07:55 Nasopharyngeal Swab Influenza Types A,B Antigen (ODESSA) - Final 05/07/17 07:55 Nasopharyngeal Swab - Final ASSESSMENT AND PLAN: 67 yof with pMhx of Lung Ca s/p chemoradiation, Mets to brain, currently on ? immunotherapy, COPD on 2L home oxygen admitted with dsypnea/hypoxia -Acute COPD exacerbation -Acute bronchitis vs early pneumonia -Neutropenia -Hyperkalemia -HTN -NIDDM Plan: CT chest noted, plan for diagnostic thoracentesis, but unable to perform given minimal fluid as discussed. Will follow up with pulmonary. Change to PO prednisone in AM. Currently at baseline oxygen supplementation Continue levaquin for now. SPutum cultures. Follow up urine PNA studies. Hold spironolactone and losartan.Low k Diet, Gentle hydration. Monitor K levels. Neutropenic precautions. Monitor for fevers, low threshold for broad spectrum antibiotics but hold off as continues to improve clinically. Discussed with Dr. Thompson, expected papi in her WBC from the chemotherapy. Plan to monitor for new fevers or sepsis. Continue sitagliptin, ISS, diabetic diet. Place on GIPPX given high dose steroids. DVTPPX with heparin Dispo anticipate d/c planning in 1-2 days if WBC and breathing status continue to improve. PT eval Plan discussed with patient in detail, all questions answered.
--- NOTE | 2017-05-09 22:07 | PN ---
Progress Note (short form) - Note Progress Note: The patient is a 67 year old female with a significant past medical history of lung cancer (last immunotherapy on 05/01/14), Right Pleural Effusions, Diabetes, Hypertension, presenting to the Emergency Department for increasing shortness of breath since her last immunotherapy treatment 5 days ago. She states she was receiving treatment on and developed some shortness of breath later that day which has increasing in severity each day since. She reports occasional dyspnea on exertion. She reports an occasional cough, intermittently productive of yellow and clear sputum. The patient denies chest pain, headache, palpitations, or dizziness. The patient denies fever, chills, nausea, vomiting, diarrhea, constipation or hematochezia. The patient denies dysuria, hematuria, change in frequency. PCP: Dr. Jesus Orellana Certified Wellness Program Manager: Dr. Contreras Past History - Past Medical History Asthma: Yes Cancer: Yes (RUL, CHEMO/RADIATION COMPLETED SPRING 2014.2015) COPD: Yes Diabetes: Yes HTN: Yes - Suicide/Smoking/Psychosocial Hx Smoking History: former smoker - Past Medical History Allergies/Adverse Reactions: Allergies Allergy/AdvReac Type Severity Reaction Status Date / Time No Known Allergies Allergy Verified 05/06/17 15:38 Home Medications: Ambulatory Orders Albuterol Sulfate Inhaler - [Ventolin HFA Inhaler -] 1 - 2 inh PO Q4H 09/26/14 Sitagliptin Phosphate [Januvia] 100 mg PO DAILY 09/26/14 Spironolactone 25 mg PO DAILY 09/26/14 Verapamil HCl 240 mg PO DAILY 09/26/14 Acetaminophen W/ Codeine #3 [Tylenol # 3 -] 1 tab PO PRN 10/10/16 Aspirin [ASA -] 81 mg PO DAILY 10/10/16 Atorvastatin Ca [Lipitor] 10 mg PO HS 10/10/16 Gabapentin 300 mg PO DAILY 10/10/16 Losartan Potassium 25 mg PO DAILY 10/10/16 Montelukast Na [Singulair -] 10 mg PO HS 10/10/16 Ondansetron [Zofran -] 8 mg PO PRN 10/10/16 Salmeterol/Fluticasone [Advair 500Mcg/50Mcg -] 1 inh IH BID 10/10/16 Meds reviewed AFVSS Cor: RSR, No murmurs, No gallops Lungs: scattered wheezes Abd: Soft, Normal bowel sounds, No organomegaly Ext:No significant edema Labs reviewed A/P 67 y/o with DM , HT, metastatic lung cancer s/p RUL RT, chemotherapy, most recently immunotherapy Being reated by Dr. Thompson comes in with worsening SOB bronchitis/pneumoitis from infection vs immunotherapy on levaquin/steroids/inhalers continue supportive care
[2017-05-09] MEDS: MONTELUKAST NA 10 MG TABLET PO SCH (22:19)
[2017-05-09] MEDS: ATORVASTATIN CA 10 MG TABLET (FP) PO SCH (22:19)
[2017-05-10] MEDS: HEPARIN NA (PORCINE) 5,000 UNITS/ML 1ML VIAL SQ SCH ×3 (06:24→21:50)
[2017-05-10] MEDS: sitaGLIPtin PHOSPHATE 50 MG TABLET PO SCH (06:24)
[2017-05-10] MEDS: ALBUTEROL SO4 2.5/IPRATROPIUM 0.5 INH SOL 3 ML VIAL.NEB. NEB SCH ×4 (07:55→20:30)
[2017-05-10 08:30] LABS: HEMATOCRIT 34.9 % (32.4-45.2); HEMOGLOBIN 10.8 GM/dL (10.7-15.3); MCH 25.4 pg (25.7-33.7); MCHC 30.8 g/dl (32.0-36.0); MEAN CELL VOLUME 82.5 fl (80-96); MEAN PLT VOLUME 8.9 fl (7.5-11.1); PLATELET COUNT 86 K/MM3 (134-434); RBC 4.23 M/mm3 (3.60-5.2); RDW 16.5 % (11.6-15.6); WHITE BLOOD COUNT 2.3 K/mm3 (4.0-10.0)
[2017-05-10 09:09] LABS: ALBUMIN 2.6 g/dl (3.4-5.0); ANION GAP 5 (8-16); BILIRUBIN,TOTAL 0.1 mg/dL (0.2-1.0); CALCIUM 7.7 mg/dL (8.5-10.1); CHLORIDE 110 mmol/L (98-107); CO2 27 mmol/L (21-32); CREATININE 0.9 mg/dL (0.55-1.02); GLUCOSE,RANDOM 115 mg/dL (74-106); SGOT/AST 30 U/L (15-37); SGPT/ALT 39 U/L (12-78); SODIUM 142 mmol/L (136-145); TOT PROT 6.3 g/dl (6.4-8.2)
[2017-05-10 09:14] LABS: ALK PHOS 136 U/L (45-117); BLOOD UREA NITROGEN 23 mg/dL (7-18)
[2017-05-10 10:09] LABS: PLATELET ESTIMATE DECREASED
[2017-05-10] MEDS: ASPIRIN 81 MG CHEWABLE TABLETS PO SCH (10:33)
[2017-05-10] MEDS: GABAPENTIN 300 MG CAPSULE (FP) PO SCH (10:34)
[2017-05-10] MEDS: PANTOPRAZOLE 40 MG TABLET (FP) PO SCH (10:34)
[2017-05-10] MEDS: predniSONE 20 MG TABLET (UD) PO SCH (10:34)
[2017-05-10] MEDS: FOLIC ACID 1 MG TABLET (FP) PO SCH (10:34)
[2017-05-10] MEDS: VERAPAMIL HCL 240 MG E.R. TABLET (FP) PO SCH (10:34)
[2017-05-10] MEDS: BUDESONIDE/FORMETEROL FUMARATE 160/4.5 mcg INHALER IH SCH ×2 (10:35→21:49)
[2017-05-10] MEDS: LEVOFLOXACIN 250 MG IVPB 250 MG/50 ML MG IVPB SCH (10:35)
[2017-05-10] MEDS: SODIUM CHLORIDE 1,000 ML IV SCH (11:05)
--- NOTE | 2017-05-10 11:23 | PN ---
Progress Note (short form) - Note Progress Note: Breathing feels overall a little better. NAD off O2. Dry cough. Intake & Output 05/07/17 05/08/17 05/09/17 05/10/17 23:59 23:59 23:59 23:59 Intake Total 1025 1625 Balance 1025 1625 Weight 141 lb Last Vital Signs Temp Pulse Resp BP Pulse Ox 97.7 F 57 L 20 144/86 98 05/10/17 06:00 05/10/17 06:00 05/10/17 06:00 05/10/17 06:00 05/09/17 21:00 Active Medications Acetaminophen/Codeine Phosphate (Tylenol # 3 -) 1 tab PO Q6H PRN PRN Reason: PAIN LEVEL 6-10 Last Admin: 05/09/17 05:56 Dose: 1 tab Albuterol Sulfate (Ventolin Hfa Inhaler -) 2 puff IH Q4H PRN PRN Reason: SHORT OF BREATH/WHEEZING Albuterol/Ipratropium (Duoneb -) 1 amp NEB RQID [facility] Stop: 05/10/17 20:30 Last Admin: 05/10/17 07:55 Dose: 1 amp Aspirin (Asa -) 81 mg PO DAILY [facility] Last Admin: 05/10/17 10:33 Dose: 81 mg Atorvastatin Calcium (Lipitor -) 10 mg PO HS [facility] Last Admin: 05/09/17 22:19 Dose: 10 mg Budesonide/Formoterol Fumarate (Symbicort 160/4.5mcg -) 2 puff IH BID [facility] Last Admin: 05/10/17 10:35 Dose: 2 puff Folic Acid (Folic Acid -) 1 mg PO DAILY [facility] Last Admin: 05/10/17 10:34 Dose: 1 mg Gabapentin (Neurontin -) 300 mg PO DAILY [facility] Last Admin: 05/10/17 10:34 Dose: 300 mg Heparin Sodium (Porcine) (Heparin -) 5,000 unit SQ TID [facility] Last Admin: 05/10/17 06:24 Dose: 5,000 unit Levofloxacin (Levaquin 250 Mg Premixed Ivpb -) 250 mg in 50 mls @ 100 mls/hr IVPB DAILY [facility] Last Admin: 05/10/17 10:35 Dose: 100 mls/hr Sodium Chloride (Normal Saline -) 1,000 mls @ 75 mls/hr IV ASDIR [facility] Last Admin: 05/10/17 11:05 Dose: 75 mls/hr Montelukast Sodium (Singulair -) 10 mg PO HS [facility] Last Admin: 05/09/17 22:19 Dose: 10 mg Pantoprazole Sodium (Protonix -) 40 mg PO DAILY [facility] Last Admin: 05/10/17 10:34 Dose: 40 mg Prednisone (Deltasone -) 60 mg PO DAILY [facility] Last Admin: 05/10/17 10:34 Dose: 60 mg Prochlorperazine Edisylate (Compazine Injection -) 5 mg IM Q4H PRN PRN Reason: NAUSEA AND/OR VOMITING Sitagliptin Phosphate (Januvia -) 100 mg PO DAILY@0700 [facility] Last Admin: 05/10/17 06:24 Dose: 100 mg Verapamil HCl (Calan Sr -) 240 mg PO DAILY [facility] Last Admin: 05/10/17 10:34 Dose: 240 mg General: Awake and alert, NAD HEENT: dry mucous membranes. trachea midline. Heart: RRR, no murmurs, rubs or gallops. Lungs: diminished at the bases, scattered wheeze Abdomen: soft, nontender to palpation, nondistended. normoactive bowel sounds x4 Extremities: pulses 2+ B/L on UE and LE. No edema noted. Laboratory Results - last 24 hr 05/09/17 05/09/17 05/09/17 07:20 11:52 17:32 WBC RBC Hgb Hct MCV MCH MCHC RDW Plt Count MPV Neutrophils % Neutrophils % (Manual) 72.7 Band Neutrophils % 0.0 Lymphocytes % Lymphocytes % (Manual) 8.1 Monocytes % (Manual) 15 H Eosinophils % (Manual) 0.0 Basophils % (Manual) 0.0 Myelocytes % (Man) 0 Metamyelocytes 0 Hypochromia 1+ Platelet Estimate Decreased Polychromasia 3+ Poikilocytosis 0 Anisocytosis 1+ Microcytosis 1+ Macrocytosis 1+ Sodium Potassium Chloride Carbon Dioxide Anion Gap BUN Creatinine Creat Clearance w eGFR POC Glucometer 127 137 Random Glucose Calcium Total Bilirubin AST ALT Alkaline Phosphatase Total Protein Albumin 05/09/17 05/10/17 05/10/17 22:20 05:55 07:30 WBC 2.3 L RBC 4.23 Hgb 10.8 Hct 34.9 MCV 82.5 MCH 25.4 L MCHC 30.8 L RDW 16.5 H Plt Count 86 L MPV 8.9 Neutrophils % No Result Required. Neutrophils % (Manual) 62.9 Band Neutrophils % 0.0 Lymphocytes % No Result Required. Lymphocytes % (Manual) 13.4 D Monocytes % (Manual) 23 H* Eosinophils % (Manual) 0.0 Basophils % (Manual) 0.0 Myelocytes % (Man) 1 D Metamyelocytes 0 Hypochromia Platelet Estimate Decreased Polychromasia Poikilocytosis Anisocytosis Microcytosis Macrocytosis Sodium Potassium Chloride Carbon Dioxide Anion Gap BUN Creatinine Creat Clearance w eGFR POC Glucometer 131 127 Random Glucose Calcium Total Bilirubin AST ALT Alkaline Phosphatase Total Protein Albumin 05/10/17 07:30 WBC RBC Hgb Hct MCV MCH MCHC RDW Plt Count MPV Neutrophils % Neutrophils % (Manual) Band Neutrophils % Lymphocytes % Lymphocytes % (Manual) Monocytes % (Manual) Eosinophils % (Manual) Basophils % (Manual) Myelocytes % (Man) Metamyelocytes Hypochromia Platelet Estimate Polychromasia Poikilocytosis Anisocytosis Microcytosis Macrocytosis Sodium 142 Potassium 5.0 Chloride 110 H Carbon Dioxide 27 Anion Gap 5 L BUN 23 H Creatinine 0.9 Creat Clearance w eGFR > 60 POC Glucometer Random Glucose 115 H Calcium 7.7 L Total Bilirubin 0.1 L D AST 30 ALT 39 Alkaline Phosphatase 136 H Total Protein 6.3 L Albumin 2.6 L Problem List - Problems (1) Acute and chronic respiratory failure with hypoxia Code(s): J96.21 - ACUTE AND CHRONIC RESPIRATORY FAILURE WITH HYPOXIA (2) Metastatic lung carcinoma Code(s): C78.00 - SECONDARY MALIGNANT NEOPLASM OF UNSPECIFIED LUNG (3) SOB (shortness of breath) Code(s): R06.02 - SHORTNESS OF BREATH (4) Chronic kidney disease (CKD) Code(s): N18.9 - CHRONIC KIDNEY DISEASE, UNSPECIFIED (5) Diabetes 1.5, managed as type 2 Code(s): E10.9 - TYPE 1 DIABETES MELLITUS WITHOUT COMPLICATIONS (6) Hypertension Code(s): I10 - ESSENTIAL (PRIMARY) HYPERTENSION (7) Hypoxia Code(s): R09.02 - HYPOXEMIA (8) Pleural effusion, right Code(s): J90 - PLEURAL EFFUSION, NOT ELSEWHERE CLASSIFIED IMP ACUTE AN CHRONIC HYPOXEMIC RESPIRATORY FAILURE/LYMPHANGITIC SPREAD END STAGE COPD METASTATIC LUNG CA WITH PLEURAL AND RIGGING LOFT REPAIRER METS PLAN IV STEROIDS INHALED BRONCHODILATORS O2 ABX REPEAT CXR IN AM DR MCKEE
--- NOTE | 2017-05-10 17:06 | PN ---
Teaching Attending Note Name of Resident: . ATTENDING PHYSICIAN STATEMENT Time of evaluation: 8:25 AM SUBJECTIVE: Patient seen and examined. Breathing continues to improve. no new complaints. OBJECTIVE: Vital Signs Period Temp Pulse Resp BP Sys/Soto Pulse Ox Last 24 Hr 97.3 F-98.4 F 57-84 16-20 95-144/70-86 98-100 Intake & Output 05/07/17 05/08/17 05/09/17 05/10/17 23:59 23:59 23:59 23:59 Intake Total 1025 1625 300 Balance 1025 1625 300 Weight 141 lb General; sitting in bed in no acute distress CVS:S1S2 regular Chest: no wheezing heard today, improved air entry bilaterally Abdomen: soft, NT, ND Extremities: no edema Home Medication List Medication Instructions Recorded Confirmed Type Albuterol Sulfate Inhaler - 1 - 2 inh PO Q4H 09/26/14 05/07/17 History [Ventolin HFA Inhaler -] Sitagliptin Phosphate [Januvia] 100 mg PO DAILY 09/26/14 05/07/17 History Spironolactone 25 mg PO DAILY 09/26/14 05/07/17 History Verapamil HCl 240 mg PO DAILY 09/26/14 05/07/17 History Acetaminophen W/ Codeine #3 1 tab PO PRN 10/10/16 05/07/17 History [Tylenol # 3 -] Aspirin [ASA -] 81 mg PO DAILY 10/10/16 05/07/17 History Gabapentin 300 mg PO DAILY 10/10/16 05/07/17 History Losartan Potassium 25 mg PO DAILY 10/10/16 05/07/17 History Montelukast Na [Singulair -] 10 mg PO HS 10/10/16 05/07/17 History Folic Acid 1 mg PO DAILY 05/07/17 05/07/17 History Salmeterol/Fluticasone [Advair 1 inh BID 05/07/17 05/07/17 History 250Mcg/50Mcg -] Active Medications Generic Name Dose Route Start Last Admin Trade Name Freq PRN Reason Stop Dose Admin Acetaminophen/Codeine Phosphate 1 tab 05/07/17 03:30 05/09/17 05:56 Tylenol # 3 - PO 1 tab Q6H PRN Administration PAIN LEVEL 6-10 Albuterol Sulfate 2 puff 05/07/17 03:30 Ventolin Hfa Inhaler - IH Q4H PRN SHORT OF BREATH/WHEEZING Albuterol/Ipratropium 1 amp 05/07/17 08:00 05/10/17 16:20 Duoneb - NEB 05/10/17 20:30 1 amp RQID [facility] Administration Aspirin 81 mg 05/07/17 10:00 05/10/17 10:33 Asa - PO 81 mg DAILY [facility] Administration Atorvastatin Calcium 10 mg 05/07/17 22:00 05/09/17 22:19 Lipitor - PO 10 mg HS [facility] Administration Budesonide/Formoterol Fumarate 2 puff 05/07/17 10:00 05/10/17 10:35 Symbicort 160/4.5mcg - IH 2 puff BID [facility] Administration Folic Acid 1 mg 05/09/17 10:00 05/10/17 10:34 Folic Acid - PO 1 mg DAILY [facility] Administration Gabapentin 300 mg 05/07/17 10:00 05/10/17 10:34 Neurontin - PO 300 mg DAILY [facility] Administration Heparin Sodium (Porcine) 5,000 unit 05/07/17 06:00 05/10/17 14:21 Heparin - SQ 5,000 unit TID [facility] Administration Levofloxacin 250 mg in 50 mls @ 100 mls/hr 05/08/17 10:00 05/10/17 10:35 Levaquin 250 Mg Premixed Ivpb - IVPB 100 mls/hr DAILY [facility] Administration Sodium Chloride 1,000 mls @ 75 mls/hr 05/08/17 10:00 05/10/17 11:05 Normal Saline - IV 75 mls/hr ASDIR [facility] Administration Montelukast Sodium 10 mg 05/07/17 22:00 05/09/17 22:19 Singulair - PO 10 mg HS [facility] Administration Pantoprazole Sodium 40 mg 05/08/17 10:00 05/10/17 10:34 Protonix - PO 40 mg DAILY [facility] Administration Prednisone 60 mg 05/10/17 10:00 05/10/17 10:34 Deltasone - PO 60 mg DAILY [facility] Administration Prochlorperazine Edisylate 5 mg 05/07/17 13:18 Compazine Injection - IM Q4H PRN NAUSEA AND/OR VOMITING Sitagliptin Phosphate 100 mg 05/08/17 07:00 05/10/17 06:24 Januvia - PO 100 mg DAILY@0700 [facility] Administration Verapamil HCl 240 mg 05/07/17 10:00 05/10/17 10:34 Calan Sr - PO 240 mg DAILY [facility] Administration Laboratory Results - last 24 hr 05/09/17 05/09/17 05/10/17 17:32 22:20 05:55 WBC RBC Hgb Hct MCV MCH MCHC RDW Plt Count MPV Neutrophils % Neutrophils % (Manual) Band Neutrophils % Lymphocytes % Lymphocytes % (Manual) Monocytes % (Manual) Eosinophils % (Manual) Basophils % (Manual) Myelocytes % (Man) Metamyelocytes Platelet Estimate Sodium Potassium Chloride Carbon Dioxide Anion Gap BUN Creatinine Creat Clearance w eGFR POC Glucometer 137 131 127 Random Glucose Calcium Total Bilirubin AST ALT Alkaline Phosphatase Total Protein Albumin 05/10/17 05/10/17 05/10/17 07:30 07:30 11:32 WBC 2.3 L RBC 4.23 Hgb 10.8 Hct 34.9 MCV 82.5 MCH 25.4 L MCHC 30.8 L RDW 16.5 H Plt Count 86 L MPV 8.9 Neutrophils % No Result Required. Neutrophils % (Manual) 62.9 Band Neutrophils % 0.0 Lymphocytes % No Result Required. Lymphocytes % (Manual) 13.4 D Monocytes % (Manual) 23 H* Eosinophils % (Manual) 0.0 Basophils % (Manual) 0.0 Myelocytes % (Man) 1 D Metamyelocytes 0 Platelet Estimate Decreased Sodium 142 Potassium 5.0 Chloride 110 H Carbon Dioxide 27 Anion Gap 5 L BUN 23 H Creatinine 0.9 Creat Clearance w eGFR > 60 POC Glucometer 144 Random Glucose 115 H Calcium 7.7 L Total Bilirubin 0.1 L D AST 30 ALT 39 Alkaline Phosphatase 136 H Total Protein 6.3 L Albumin 2.6 L 05/10/17 16:41 WBC RBC Hgb Hct MCV MCH MCHC RDW Plt Count MPV Neutrophils % Neutrophils % (Manual) Band Neutrophils % Lymphocytes % Lymphocytes % (Manual) Monocytes % (Manual) Eosinophils % (Manual) Basophils % (Manual) Myelocytes % (Man) Metamyelocytes Platelet Estimate Sodium Potassium Chloride Carbon Dioxide Anion Gap BUN Creatinine Creat Clearance w eGFR POC Glucometer 216 Random Glucose Calcium Total Bilirubin AST ALT Alkaline Phosphatase Total Protein Albumin Microbiology 05/07/17 01:08 Blood - Peripheral Venous Blood Culture - Preliminary NO GROWTH OBTAINED AFTER 72 HOURS, INCUBATION TO CONTINUE FOR 2 DAYS. 05/07/17 01:08 Blood - Peripheral Venous Blood Culture - Preliminary NO GROWTH OBTAINED AFTER 72 HOURS, INCUBATION TO CONTINUE FOR 2 DAYS. 05/08/17 09:15 Urine For Antigen Detection Legionella Antigen - Final 05/08/17 09:15 Urine For Antigen Detection Streptococcus pneumoniae Antigen (M - Final 05/07/17 07:55 Nasopharyngeal Swab Influenza Types A,B Antigen (ODESSA) - Final 05/07/17 07:55 Nasopharyngeal Swab - Final ASSESSMENT AND PLAN: 67 yof with pMhx of Lung Ca s/p chemoradiation, Mets to brain, currently on ? immunotherapy, COPD on 2L home oxygen admitted with dsypnea/hypoxia -Acute COPD exacerbation -Acute bronchitis vs early pneumonia -Neutropenia -Hyperkalemia -HTN -NIDDM Plan: CT chest noted, plan for diagnostic thoracentesis, but unable to perform given minimal fluid as discussed. Will follow up with pulmonary. Changed to PO prednisone Currently at baseline oxygen supplementation Continue levaquin for now. SPutum cultures. Follow up urine PNA studies. Hold spironolactone and losartan.Low k Diet, Gentle hydration. Monitor K levels. Neutropenic precautions. Monitor for fevers, low threshold for broad spectrum antibiotics but hold off as continues to improve clinically. Discussed with Dr. Thompson, expected papi in her WBC from the chemotherapy. Plan to monitor for new fevers or sepsis. Oncology input appreciated. WBC improved. Continue sitagliptin, ISS, diabetic diet. Place on GIPPX given high dose steroids. DVTPPX with heparin Dispo anticipate d/c planning in 1-2 days if WBC and breathing status continue to improve. PT eval Plan discussed with patient in detail, all questions answered.
[2017-05-10] MEDS: MONTELUKAST NA 10 MG TABLET PO SCH (21:50)
[2017-05-10] MEDS: ATORVASTATIN CA 10 MG TABLET (FP) PO SCH (21:50)
[2017-05-11] MEDS: SODIUM CHLORIDE 1,000 ML IV SCH ×3 (04:14→22:14)
[2017-05-11] MEDS: sitaGLIPtin PHOSPHATE 50 MG TABLET PO SCH (06:26)
[2017-05-11] MEDS: HEPARIN NA (PORCINE) 5,000 UNITS/ML 1ML VIAL SQ SCH ×2 (06:26→14:27)
[2017-05-11] MEDS: ACETAMINOPHEN WITH CODEINE 300MG/30MG TABLET PO PRN (06:33)
[2017-05-11 08:43] LABS: HEMATOCRIT 35.8 % (32.4-45.2); MCH 25.2 pg (25.7-33.7); MCHC 30.7 g/dl (32.0-36.0); MEAN CELL VOLUME 82.3 fl (80-96); MEAN PLT VOLUME 8.3 fl (7.5-11.1); PLATELET COUNT 89 K/MM3 (134-434); RBC 4.36 M/mm3 (3.60-5.2); RDW 16.6 % (11.6-15.6); WHITE BLOOD COUNT 3.3 K/mm3 (4.0-10.0)
[2017-05-11] MEDS: ALBUTEROL SO4 2.5/IPRATROPIUM 0.5 INH SOL 3 ML VIAL.NEB. NEB PRN (09:36)
[2017-05-11] MEDS ORDERED: PT OWN MED DRAWER 7, Y5N ONE (10:13)
[2017-05-11] MEDS: ASPIRIN 81 MG CHEWABLE TABLETS PO SCH (10:19)
[2017-05-11] MEDS: VERAPAMIL HCL 240 MG E.R. TABLET (FP) PO SCH (10:19)
[2017-05-11] MEDS: FOLIC ACID 1 MG TABLET (FP) PO SCH (10:20)
[2017-05-11] MEDS: LEVOFLOXACIN 250 MG IVPB 250 MG/50 ML MG IVPB SCH (10:20)
[2017-05-11] MEDS: GABAPENTIN 300 MG CAPSULE (FP) PO SCH (10:20)
[2017-05-11] MEDS: predniSONE 20 MG TABLET (UD) PO SCH (10:20)
[2017-05-11] MEDS: PANTOPRAZOLE 40 MG TABLET (FP) PO SCH (10:20)
[2017-05-11] MEDS: BUDESONIDE/FORMETEROL FUMARATE 160/4.5 mcg INHALER IH SCH ×2 (10:20→22:15)
[2017-05-11 10:55] LABS: ANISOCYTOSIS 1+; MACROCYTOSIS 0; OVALOCYTE 1+; PLATELET ESTIMATE DECREASED
--- NOTE | 2017-05-11 10:59 | PN ---
Progress Note (short form) - Note Progress Note: Breathing feels overall a little better. NAD off O2. Dry cough. Intake & Output 05/08/17 05/09/17 05/10/17 05/11/17 23:59 23:59 23:59 23:59 Intake Total 1025 1625 1290 600 Balance 1025 1625 1290 600 Last Vital Signs Temp Pulse Resp BP Pulse Ox 97.2 F L 58 L 20 121/70 95 05/10/17 22:00 05/10/17 22:00 05/10/17 22:00 05/10/17 22:00 05/10/17 21:00 Active Medications Albuterol Sulfate (Ventolin Hfa Inhaler -) 2 puff IH Q4H PRN PRN Reason: SHORT OF BREATH/WHEEZING Albuterol/Ipratropium (Duoneb -) 1 amp NEB Q4H PRN PRN Reason: SHORTNESS OF BREATH Last Admin: 05/11/17 09:36 Dose: 1 amp Aspirin (Asa -) 81 mg PO DAILY [facility] Last Admin: 05/11/17 10:19 Dose: 81 mg Atorvastatin Calcium (Lipitor -) 10 mg PO HS [facility] Last Admin: 05/10/17 21:50 Dose: 10 mg Budesonide/Formoterol Fumarate (Symbicort 160/4.5mcg -) 2 puff IH BID [facility] Last Admin: 05/11/17 10:20 Dose: 2 puff Folic Acid (Folic Acid -) 1 mg PO DAILY [facility] Last Admin: 05/11/17 10:20 Dose: 1 mg Gabapentin (Neurontin -) 300 mg PO DAILY [facility] Last Admin: 05/11/17 10:20 Dose: 300 mg Heparin Sodium (Porcine) (Heparin -) 5,000 unit SQ TID [facility] Last Admin: 05/11/17 06:26 Dose: 5,000 unit Levofloxacin (Levaquin 250 Mg Premixed Ivpb -) 250 mg in 50 mls @ 100 mls/hr IVPB DAILY [facility] Last Admin: 05/11/17 10:20 Dose: 100 mls/hr Sodium Chloride (Normal Saline -) 1,000 mls @ 75 mls/hr IV ASDIR [facility] Last Admin: 05/11/17 04:14 Dose: 75 mls/hr Montelukast Sodium (Singulair -) 10 mg PO HS [facility] Last Admin: 05/10/17 21:50 Dose: 10 mg Pantoprazole Sodium (Protonix -) 40 mg PO DAILY [facility] Last Admin: 05/11/17 10:20 Dose: 40 mg Prednisone (Deltasone -) 60 mg PO DAILY [facility] Last Admin: 05/11/17 10:20 Dose: 60 mg Prochlorperazine Edisylate (Compazine Injection -) 5 mg IM Q4H PRN PRN Reason: NAUSEA AND/OR VOMITING Sitagliptin Phosphate (Januvia -) 100 mg PO DAILY@0700 [facility] Last Admin: 05/11/17 06:26 Dose: 100 mg Verapamil HCl (Calan Sr -) 240 mg PO DAILY [facility] Last Admin: 05/11/17 10:19 Dose: 240 mg General: Awake and alert, NAD HEENT: dry mucous membranes. trachea midline. Heart: RRR, no murmurs, rubs or gallops. Lungs: diminished at the bases, scattered wheeze Abdomen: soft, nontender to palpation, nondistended. normoactive bowel sounds x4 Extremities: pulses 2+ B/L on UE and LE. No edema noted. Laboratory Results - last 24 hr 05/10/17 05/10/17 05/10/17 11:32 16:41 20:55 WBC RBC Hgb Hct MCV MCH MCHC RDW Plt Count MPV Neutrophils % Lymphocytes % POC Glucometer 144 216 122 05/11/17 05/11/17 06:29 08:15 WBC 3.3 L D RBC 4.36 Hgb 11.0 Hct 35.8 MCV 82.3 MCH 25.2 L MCHC 30.7 L RDW 16.6 H Plt Count 89 L MPV 8.3 Neutrophils % No Result Required. Lymphocytes % No Result Required. POC Glucometer 99 Problem List - Problems (1) Acute and chronic respiratory failure with hypoxia Code(s): J96.21 - ACUTE AND CHRONIC RESPIRATORY FAILURE WITH HYPOXIA (2) Metastatic lung carcinoma Code(s): C78.00 - SECONDARY MALIGNANT NEOPLASM OF UNSPECIFIED LUNG (3) SOB (shortness of breath) Code(s): R06.02 - SHORTNESS OF BREATH (4) Chronic kidney disease (CKD) Code(s): N18.9 - CHRONIC KIDNEY DISEASE, UNSPECIFIED (5) Diabetes 1.5, managed as type 2 Code(s): E10.9 - TYPE 1 DIABETES MELLITUS WITHOUT COMPLICATIONS (6) Hypertension Code(s): I10 - ESSENTIAL (PRIMARY) HYPERTENSION (7) Hypoxia Code(s): R09.02 - HYPOXEMIA (8) Pleural effusion, right Code(s): J90 - PLEURAL EFFUSION, NOT ELSEWHERE CLASSIFIED IMP ACUTE AN CHRONIC HYPOXEMIC RESPIRATORY FAILURE/LYMPHANGITIC SPREAD END STAGE COPD METASTATIC LUNG CA WITH PLEURAL AND TAR CHASER METS PLAN IV STEROIDS INHALED BRONCHODILATORS O2 ABX REPEAT CXR TODAY DR MCKEE
--- NOTE | 2017-05-11 14:06 | PN ---
Teaching Attending Note Name of Resident: . ATTENDING PHYSICIAN STATEMENT Time of evaluation: 8:30 AM SUBJECTIVE: Patient seen and examined. overall feels good, no new complaints. OBJECTIVE: Vital Signs Period Temp Pulse Resp BP Sys/Soto Pulse Ox Last 24 Hr 97.2 F-98.4 F 58-84 16-20 95-145/70-91 95-97 Intake & Output 05/08/17 05/09/17 05/10/17 05/11/17 23:59 23:59 23:59 23:59 Intake Total 1025 1625 1290 600 Balance 1025 1625 1290 600 general: sitting in bed in no acute distress Chest: distant breath sounds, no wheezing today Abdomen: soft, nT, ND extremities: no edema Home Medication List Medication Instructions Recorded Confirmed Type Albuterol Sulfate Inhaler - 1 - 2 inh PO Q4H 09/26/14 05/07/17 History [Ventolin HFA Inhaler -] Sitagliptin Phosphate [Januvia] 100 mg PO DAILY 09/26/14 05/07/17 History Spironolactone 25 mg PO DAILY 09/26/14 05/07/17 History Verapamil HCl 240 mg PO DAILY 09/26/14 05/07/17 History Acetaminophen W/ Codeine #3 1 tab PO PRN 10/10/16 05/07/17 History [Tylenol # 3 -] Aspirin [ASA -] 81 mg PO DAILY 10/10/16 05/07/17 History Gabapentin 300 mg PO DAILY 10/10/16 05/07/17 History Losartan Potassium 25 mg PO DAILY 10/10/16 05/07/17 History Montelukast Na [Singulair -] 10 mg PO HS 10/10/16 05/07/17 History Folic Acid 1 mg PO DAILY 05/07/17 05/07/17 History Salmeterol/Fluticasone [Advair 1 inh BID 05/07/17 05/07/17 History 250Mcg/50Mcg -] Active Medications Generic Name Dose Route Start Last Admin Trade Name Freq PRN Reason Stop Dose Admin Albuterol Sulfate 2 puff 05/07/17 03:30 Ventolin Hfa Inhaler - IH Q4H PRN SHORT OF BREATH/WHEEZING Albuterol/Ipratropium 1 amp 05/11/17 08:27 05/11/17 09:36 Duoneb - NEB 1 amp Q4H PRN Administration SHORTNESS OF BREATH Aspirin 81 mg 05/07/17 10:00 05/11/17 10:19 Asa - PO 81 mg DAILY SAEED Administration Atorvastatin Calcium 10 mg 05/07/17 22:00 05/10/17 21:50 Lipitor - PO 10 mg HS SAEED Administration Budesonide/Formoterol Fumarate 2 puff 05/07/17 10:00 05/11/17 10:20 Symbicort 160/4.5mcg - IH 2 puff BID SAEED Administration Folic Acid 1 mg 05/09/17 10:00 05/11/17 10:20 Folic Acid - PO 1 mg DAILY SAEED Administration Gabapentin 300 mg 05/07/17 10:00 05/11/17 10:20 Neurontin - PO 300 mg DAILY SAEED Administration Heparin Sodium (Porcine) 5,000 unit 05/07/17 06:00 05/11/17 06:26 Heparin - SQ 5,000 unit TID SAEED Administration Levofloxacin 250 mg in 50 mls @ 100 mls/hr 05/08/17 10:00 05/11/17 10:20 Levaquin 250 Mg Premixed Ivpb - IVPB 100 mls/hr DAILY SAEED Administration Sodium Chloride 1,000 mls @ 75 mls/hr 05/08/17 10:00 05/11/17 04:14 Normal Saline - IV 75 mls/hr ASDIR SAEED Administration Montelukast Sodium 10 mg 05/07/17 22:00 05/10/17 21:50 Singulair - PO 10 mg HS SAEED Administration Pantoprazole Sodium 40 mg 05/08/17 10:00 05/11/17 10:20 Protonix - PO 40 mg DAILY SAEED Administration Prednisone 60 mg 05/10/17 10:00 05/11/17 10:20 Deltasone - PO 60 mg DAILY SAEED Administration Prochlorperazine Edisylate 5 mg 05/07/17 13:18 Compazine Injection - IM Q4H PRN NAUSEA AND/OR VOMITING Sitagliptin Phosphate 100 mg 05/08/17 07:00 05/11/17 06:26 Januvia - PO 100 mg DAILY@0700 SAEED Administration Verapamil HCl 240 mg 05/07/17 10:00 05/11/17 10:19 Calan Sr - PO 240 mg DAILY SAEED Administration Laboratory Results - last 24 hr 05/10/17 05/10/17 05/11/17 16:41 20:55 06:29 WBC RBC Hgb Hct MCV MCH MCHC RDW Plt Count MPV Neutrophils % Neutrophils % (Manual) Band Neutrophils % Lymphocytes % Lymphocytes % (Manual) Monocytes % (Manual) Eosinophils % (Manual) Basophils % (Manual) Myelocytes % (Man) Metamyelocytes Hypochromia Platelet Estimate Polychromasia Poikilocytosis Anisocytosis Microcytosis Macrocytosis Ovalocytes POC Glucometer 216 122 99 Stool Occult Blood 05/11/17 05/11/17 05/11/17 08:15 11:00 12:15 WBC 3.3 L D RBC 4.36 Hgb 11.0 Hct 35.8 MCV 82.3 MCH 25.2 L MCHC 30.7 L RDW 16.6 H Plt Count 89 L MPV 8.3 Neutrophils % No Result Required. Neutrophils % (Manual) 37.4 L D Band Neutrophils % 0.0 Lymphocytes % No Result Required. Lymphocytes % (Manual) 13.1 Monocytes % (Manual) 40 H* Eosinophils % (Manual) 0.0 Basophils % (Manual) 0.0 Myelocytes % (Man) 2 D Metamyelocytes 0 Hypochromia 0 Platelet Estimate Decreased Polychromasia 0 Poikilocytosis 1+ Anisocytosis 1+ Microcytosis 0 Macrocytosis 0 Ovalocytes 1+ POC Glucometer 103 Stool Occult Blood Negative Microbiology 05/07/17 01:08 Blood - Peripheral Venous Blood Culture - Preliminary NO GROWTH OBTAINED AFTER 96 HOURS, INCUBATION TO CONTINUE FOR 1 DAYS. 05/07/17 01:08 Blood - Peripheral Venous Blood Culture - Preliminary NO GROWTH OBTAINED AFTER 96 HOURS, INCUBATION TO CONTINUE FOR 1 DAYS. 05/08/17 09:15 Urine For Antigen Detection Legionella Antigen - Final 05/08/17 09:15 Urine For Antigen Detection Streptococcus pneumoniae Antigen (M - Final 05/07/17 07:55 Nasopharyngeal Swab Influenza Types A,B Antigen (ODESSA) - Final 05/07/17 07:55 Nasopharyngeal Swab - Final CXR results noted ASSESSMENT AND PLAN: 67 yof with pMhx of Lung Ca s/p chemoradiation, Mets to brain, currently on ? immunotherapy, COPD on 2L home oxygen admitted with dsypnea/hypoxia -Acute COPD exacerbation -Acute bronchitis vs early pneumonia -Neutropenia -Hyperkalemia -HTN -NIDDM Plan: CT chest noted, plan for diagnostic thoracentesis, but unable to perform given minimal fluid as discussed. CXr worse today. discussed with Dr. Bermudez, will re-attempt thoracocentesis tomorrow. High suspicion for fluid to be malignant. Will follow up with pulmonary. PO prednisone Currently at baseline oxygen supplementation Continue levaquin for now. SPutum cultures. Follow up urine PNA studies. Hold spironolactone and losartan.Low k Diet, Gentle hydration. Monitor K levels. WBC improved, d/c neutropenic precautions. Discussed with Dr. Thompson, expected papi in her WBC from the chemotherapy. Plan to monitor for new fevers or sepsis. Oncology input appreciated. WBC improved. Continue sitagliptin, ISS, diabetic diet. Place on GIPPX given high dose steroids. DVTPPX with heparin, hold heparin today for possible thoracentesis tomorrow. Dispo d/c planning on hold pending above. Await PT eval Plan discussed with patient in detail, all questions answered.
[2017-05-11] MEDS: ATORVASTATIN CA 10 MG TABLET (FP) PO SCH (22:15)
[2017-05-11] MEDS: MONTELUKAST NA 10 MG TABLET PO SCH (22:15)
[2017-05-12] MEDS ORDERED: ACETAMINOPHEN WITH CODEINE 300MG/30MG TABLET PO STA ×2 (05:15→05:50)
[2017-05-12] MEDS: sitaGLIPtin PHOSPHATE 50 MG TABLET PO SCH (06:16)
--- NOTE | 2017-05-12 07:14 | PN ---
Physical Exam: SUBJECTIVE: Patient seen and examined by me this AM - All micro negative to date; No plan for repeat thoracentesis as inpt per attendings; WBC improving over the weekend (3.3); Will likely d/c today with one week followup tap or possible pleurex placement; cont w/ prednisone taper; No CP or discomfort, ambulating well; no events overnight - Endorses improved breathing, still with mild nonproductive cough; mild back pain due to decreased ambulation PM: - Per nursing, pt wheezing in PM. Repeat CXR possible worsening congestion. Pt states she is SOB on ambulation. Decision to forego discharge for further inpt management of pulm condition and tap of pleural effusion as inpt. D/c cancelled. OBJECTIVE: Vital Signs Intake & Output 05/09/17 05/10/17 05/11/17 05/12/17 23:59 23:59 23:59 23:59 Intake Total 1625 1290 1794 450 Balance 1625 1290 1794 450 Period Temp Pulse Resp BP Sys/Soto Pulse Ox Last 24 Hr 97.3 F-98.3 F 59-79 18-20 118-145/76-91 97-100 GENERAL: Elderly woman in NAD. The patient is awake, alert, and fully oriented. HEAD: Normal with no signs of trauma. EYES: L eye poorly reactive to light. extraocular movements intact, sclera anicteric, conjunctiva clear. No ptosis. ENT: Poor dentition. Ears normal, nares patent, oropharynx clear without exudates, moist mucous membranes. NECK: Trachea midline, full range of motion, supple. LUNGS: BL expiratory wheeze. Upper airway congestion, coarse breath sounds. Decreased breath sounds at RLL. HEART: 2/6 diastolic murmur at LUSB. Regular rate and rhythm, S1, S2 without murmur, rub or gallop. ABDOMEN: Soft, ND, NT. No guarding, no rebound, no masses, neg murphys EXTREMITIES: 2+ pulses, warm, well-perfused, no edema. NEUROLOGICAL: Cranial nerves II through XII grossly intact. Normal speech, gait not observed. PSYCH: Normal mood, normal affect. SKIN: Warm, dry, normal turgor, no rashes or lesions noted Laboratory Results - last 24 hr CBC, BMP 05/12/17 06:00 05/10/17 07:30 05/11/17 08:15 05/10/17 07:30 05/11/17 05/11/17 05/11/17 08:15 11:00 12:15 WBC 3.3 L D RBC 4.36 Hgb 11.0 Hct 35.8 MCV 82.3 MCH 25.2 L MCHC 30.7 L RDW 16.6 H Plt Count 89 L MPV 8.3 Neutrophils % No Result Required. Neutrophils % (Manual) 37.4 L D Band Neutrophils % 0.0 Lymphocytes % No Result Required. Lymphocytes % (Manual) 13.1 Monocytes % (Manual) 40 H* Eosinophils % (Manual) 0.0 Basophils % (Manual) 0.0 Myelocytes % (Man) 2 D Metamyelocytes 0 Hypochromia 0 Platelet Estimate Decreased Polychromasia 0 Poikilocytosis 1+ Anisocytosis 1+ Microcytosis 0 Macrocytosis 0 Ovalocytes 1+ POC Glucometer 103 Stool Occult Blood Negative 05/11/17 05/11/17 05/12/17 16:54 21:38 05:23 WBC RBC Hgb Hct MCV MCH MCHC RDW Plt Count MPV Neutrophils % Neutrophils % (Manual) Band Neutrophils % Lymphocytes % Lymphocytes % (Manual) Monocytes % (Manual) Eosinophils % (Manual) Basophils % (Manual) Myelocytes % (Man) Metamyelocytes Hypochromia Platelet Estimate Polychromasia Poikilocytosis Anisocytosis Microcytosis Macrocytosis Ovalocytes POC Glucometer 145 141 103 Stool Occult Blood Active Medications Generic Name Dose Route Start Last Admin Trade Name Freq PRN Reason Stop Dose Admin Albuterol Sulfate 2 puff 05/07/17 03:30 Ventolin Hfa Inhaler - IH Q4H PRN SHORT OF BREATH/WHEEZING Albuterol/Ipratropium 1 amp 05/11/17 08:27 05/11/17 09:36 Duoneb - NEB 1 amp Q4H PRN Administration SHORTNESS OF BREATH Aspirin 81 mg 05/07/17 10:00 05/11/17 10:19 Asa - PO 81 mg DAILY SAEED Administration Atorvastatin Calcium 10 mg 05/07/17 22:00 05/11/17 22:15 Lipitor - PO 10 mg HS SAEED Administration Budesonide/Formoterol Fumarate 2 puff 05/07/17 10:00 05/11/17 22:15 Symbicort 160/4.5mcg - IH 2 puff BID SAEED Administration Folic Acid 1 mg 05/09/17 10:00 05/11/17 10:20 Folic Acid - PO 1 mg DAILY SAEED Administration Gabapentin 300 mg 05/07/17 10:00 05/11/17 10:20 Neurontin - PO 300 mg DAILY SAEED Administration Heparin Sodium (Porcine) 5,000 unit 05/07/17 06:00 05/11/17 14:27 Heparin - SQ Not Given TID SAEED Levofloxacin 250 mg in 50 mls @ 100 mls/hr 05/08/17 10:00 05/11/17 10:20 Levaquin 250 Mg Premixed Ivpb - IVPB 100 mls/hr DAILY SAEED Administration Sodium Chloride 1,000 mls @ 75 mls/hr 05/08/17 10:00 05/11/17 22:14 Normal Saline - IV 75 mls/hr ASDIR SAEED Administration Montelukast Sodium 10 mg 05/07/17 22:00 05/11/17 22:15 Singulair - PO 10 mg HS SAEED Administration Pantoprazole Sodium 40 mg 05/08/17 10:00 05/11/17 10:20 Protonix - PO 40 mg DAILY SAEED Administration Prednisone 60 mg 05/10/17 10:00 05/11/17 10:20 Deltasone - PO 60 mg DAILY SAEED Administration Prochlorperazine Edisylate 5 mg 05/07/17 13:18 Compazine Injection - IM Q4H PRN NAUSEA AND/OR VOMITING Sitagliptin Phosphate 100 mg 05/08/17 07:00 05/12/17 06:16 Januvia - PO 100 mg DAILY@0700 SAEED Administration Verapamil HCl 240 mg 05/07/17 10:00 05/11/17 10:19 Calan Sr - PO 240 mg DAILY SAEED Administration Microbiology 05/07/17 01:08 Blood - Peripheral Venous Blood Culture - Final NO GROWTH AFTER 5 DAYS INCUBATION 05/07/17 01:08 Blood - Peripheral Venous Blood Culture - Final NO GROWTH AFTER 5 DAYS INCUBATION 05/08/17 09:15 Urine For Antigen Detection Legionella Antigen - Final 05/08/17 09:15 Urine For Antigen Detection Streptococcus pneumoniae Antigen (M - Final 05/07/17 07:55 Nasopharyngeal Swab Influenza Types A,B Antigen (ODESSA) - Final 05/07/17 07:55 Nasopharyngeal Swab - Final CT Chest 05/07 - IMPRESSION: Interval slightly better aeration of the left lung with persistent interstitial and nodular opacities and masslike density in the left lower lobe, anteriorly measuring 2.1 cm without gross interval change. Masslike density in the right upper lobe, anteriorly inseparable from the right superior mediastinum and with with tiny cystic changes again seen without gross interval change. Interval decrease right pleural effusion that remains moderate with a triangular-shaped low-attenuation density in the right lung base likely representing loculated fluid. Continued close follow-up is recommended. CXR 05/06 - Suspected right lung mass and pleural effusion with diffuse nodularity and interstitial lung disease. Clinical correlation and follow-up recommended. Please see above discussion CXR 05/11 - Impression: Worse. Progressive right pulmonary and pleural changes with right mass and increased interstitial and nodular changes left lung. CXR 05/12: Equivocal change in imaging, possibly dependent on positioning. Chronic R pleural effusion. BL diffuse airspace opacities. ASSESSMENT/PLAN: 67 yo F w/ PMH recurrent R Lung CA w/ metastatic breast Ca, COPD (2L, satting in 97%), chronic pleural effusions, asthma who presents to ED w/ malaise, body aches and generalized fatigue after chemo tx on . #COPD exacerbation - secondary to suspected PNA; increased wheezing today, more SOB in PM; d/c cancelled - Duonebs QID, Ventolin PRN - Home O2 2l; maintain sat above 97% - Switch from PO prednisone to medrol 40 BID today for increased wheezing - will cont Singulair, Symbicort per home meds - Tylenol for pain, fever - Consider inpt thoracentesis for R pleural effusion - pulm consulted, recs appreciated - compazine for N/V - Robitussin for cough #Neutropenia - continues to improve; 4.7 today; resolved - Plan for two more days of levaquin for abx coverage; may expand abx coverage if worsening infectious symptoms - No longer neutropenic; afebrile, non-infectious - neutropenia secondary to chemotx - Folic acid #Bronchitis vs. PNA - afebrile, WBC correct - Urine ags neg, flu neg - trend fever, wbc - levaquin for 2 more days (Day 5/7) - CXR with no focal infiltrate today #Lung CA - pleural mets 2/2 lung ca per pulm - Inpt tap vs. pleurex catheter; discussed with pulm, IR - pulm, heme/onc following - outpt management w/ Dr. Thomspon #Hyperkalemia - Resolved - Daily BMPs #HTN - c/w Verapamil - holding K-sparing HTN meds due to hyperK #NIDDM - januvia per home meds - Neurontin for neuropathy - ISS, BGM #HLD -home statin FEN - PO hydration - Daily BMPs - low K diet, diabetic PPX HSQ c/w scds Plan discussed with Dr. Bharathi Francois, PGY1 Visit type - Emergency Visit Emergency Visit: Yes ED Registration Date: 05/07/17 Care time: The patient presented to the Emergency Department on the above date and was hospitalized for further evaluation of their emergent condition. - New Patient This patient is new to me today: No - Critical Care Critical Care patient: No
--- NOTE | 2017-05-12 07:17 | MSN ---
Progress Note (short form) - Note Progress Note: Subjective: Patient was seen this morning. Has no complaints. Back pain managed with tylenol w/ codeine. Denies SOB, chest pain, N/V/D. Objective: Last Vital Signs Temp Pulse Resp BP Pulse Ox 98.3 F 61 18 141/73 100 05/12/17 06:00 05/12/17 06:00 05/12/17 06:00 05/12/17 06:00 05/11/17 21:00 General: Patient is resting comfortably. HEENT: PERRLA on the right, left eye non-reactive (unchanged). trachea midline. Heart: RRR. no murmurs, rubs or gallops appreciated. Lungs: improved airflow with coarse breath sounds b/l. Abdomen: nontender to palpation. normoactive bowel sounds x4 Extremities: 2+ pulses B/L. No edema noted on all extremities. Abnormal Lab Results 05/11/17 08:15 WBC 3.3 L D MCH 25.2 L MCHC 30.7 L RDW 16.6 H Plt Count 89 L Neutrophils % (Manual) 37.4 L D Monocytes % (Manual) 40 H* Home Medications Medication Instructions Recorded Albuterol Sulfate Inhaler - 1 - 2 inh PO Q4H 09/26/14 [Ventolin HFA Inhaler -] Sitagliptin Phosphate [Januvia] 100 mg PO DAILY 09/26/14 Spironolactone 25 mg PO DAILY 09/26/14 Verapamil HCl 240 mg PO DAILY 09/26/14 Acetaminophen W/ Codeine #3 1 tab PO PRN 10/10/16 [Tylenol # 3 -] Aspirin [ASA -] 81 mg PO DAILY 10/10/16 Gabapentin 300 mg PO DAILY 10/10/16 Losartan Potassium 25 mg PO DAILY 10/10/16 Montelukast Na [Singulair -] 10 mg PO HS 10/10/16 Folic Acid 1 mg PO DAILY 05/07/17 Salmeterol/Fluticasone [Advair 1 inh BID 05/07/17 250Mcg/50Mcg -] Imaging: chest x-ray 05/11/17: progressive right pulm & pleural changes with right mass. increased interstitial nodular changes of left lung. chest CT 05/07/17: Interval slightly better aeration of the left lung with persistent interstitial and nodular opacities and masslike density in the left lower lobe, anteriorly measuring 2.1 cm without gross interval change. Mass- like density in the right upper lobe, anteriorly inseparable from the right superior mediastinum and with with tiny cystic changes again seen without gross interval change. Interval decrease right pleural effusion that remains moderate with a triangular-shaped low-attenuation density in the right lung base likely representing loculated fluid. EKG on 05/06/17: normal sinus rhythm, possible left atrial enlargement. Xray on 05/06/17: Suspected right lung mass and pleural effusion with diffuse nodularity and interstitial lung disease. Clinical correlation and follow-up recommended. Please see above discussion. Assessment/ Plan: 67 yo F with hx of lung cancer with brain mets s/p chemoradiation, COPD on 2L O2 at home who presented with hypoxia/dyspnea likely due to acute on chronic hypoxemic respiratory failure. # acute on chronic hypoxemic respiratory failure -- end stage COPD - on 2K O2 nasal cannula- setting well - ventolin 2 puff q4h prn - duoneb qid - Prednisone (Deltasone -) 60 mg PO DAILY SAEED - symbicort 2 puff BID - montelukast (singulair) 10mg qhs - continue levofloxacin (levaquin) 250mg. 2 more days coverage. - pulmonologis: Dr. Contreras - discharge on prednisone taper. # leukopenia/ neutropenia - secondary to cancer therapy -- improving. - continue home medication of folate - neutropenic precautions removed. # Hyperkalemia -monitor BMP - hold spironolactone and losartan # HTN - Verapamil HCl (Calan Sr -) 240 mg PO DAILY [facility] # Hyperlipidimia - Atorvastatin Calcium (Lipitor -) 10 mg PO HS [facility] # NIDDM - continue home medication of Sitagliptin Phosphate (Januvia -) 100 mg PO DAILY @0700 [facility] - Insulin sliding scale - monitor blood glucose # chronic intermittent back pain - home med: Gabapentin (Neurontin -) 300 mg PO DAILY [facility] # hx of lung adenocarcinoma - stable to mildly progressive dz - spoke to Dr. Thompson: patient was diagnosed with stage III adenocarcinoma in early 2014 and was treated with chemo + radiation. On Jan 2015, patient had metastasis to the brain and was managed with whole brain radiation. On July 2016, patient had 6 courses immunotherapy with Nivolumab and completed them. For the past 6 months, patient has been treated with Alimta q2-4 weeks. - continue outpt management # FEN - fluid: Sodium Chloride (Normal Saline -) 1,000 mls @ 50 mls/hr IV ASDIR SAEED - electrolyte: hyperkalemia - continue to monitor - nutrition: PO # DVT prophylaxis: heparin 5000 units sq TIS SAEED
[2017-05-12 08:28] LABS: HEMATOCRIT 34.3 % (32.4-45.2); HEMOGLOBIN 10.5 GM/dL (10.7-15.3); MCH 25.2 pg (25.7-33.7); MCHC 30.7 g/dl (32.0-36.0); MEAN CELL VOLUME 82.1 fl (80-96); PLATELET COUNT 93 K/MM3 (134-434); RBC 4.18 M/mm3 (3.60-5.2); RDW 16.5 % (11.6-15.6); WHITE BLOOD COUNT 4.7 K/mm3 (4.0-10.0)
--- NOTE | 2017-05-12 10:42 | PN ---
Progress Note (short form) - Note Progress Note: PULMONARY States breathing is improving. +nonproductive cough. Some dyspnea when ambulating with PT. No fevers or chills. CXR read as worse but appears similar to prior but different technique. Last Vital Signs Temp Pulse Resp BP Pulse Ox 98.3 F 61 18 141/73 100 05/12/17 06:00 05/12/17 06:00 05/12/17 06:00 05/12/17 06:00 05/11/17 21:00 Gen: NAD in chair Heart: RRR Lung: bronchial breath sounds right base, few rales Abd: soft, nontender Ext: no edema CBC, BMP 05/12/17 06:00 05/10/17 07:30 Active Medications Albuterol Sulfate (Ventolin Hfa Inhaler -) 2 puff IH Q4H PRN PRN Reason: SHORT OF BREATH/WHEEZING Albuterol/Ipratropium (Duoneb -) 1 amp NEB Q4H PRN PRN Reason: SHORTNESS OF BREATH Last Admin: 05/11/17 09:36 Dose: 1 amp Aspirin (Asa -) 81 mg PO DAILY [facility] Last Admin: 05/11/17 10:19 Dose: 81 mg Atorvastatin Calcium (Lipitor -) 10 mg PO HS [facility] Last Admin: 05/11/17 22:15 Dose: 10 mg Budesonide/Formoterol Fumarate (Symbicort 160/4.5mcg -) 2 puff IH BID [facility] Last Admin: 05/11/17 22:15 Dose: 2 puff Folic Acid (Folic Acid -) 1 mg PO DAILY [facility] Last Admin: 05/11/17 10:20 Dose: 1 mg Gabapentin (Neurontin -) 300 mg PO DAILY [facility] Last Admin: 05/11/17 10:20 Dose: 300 mg Heparin Sodium (Porcine) (Heparin -) 5,000 unit SQ TID [facility] Last Admin: 05/11/17 14:27 Dose: Not Given Levofloxacin (Levaquin 250 Mg Premixed Ivpb -) 250 mg in 50 mls @ 100 mls/hr IVPB DAILY [facility] Last Admin: 05/11/17 10:20 Dose: 100 mls/hr Sodium Chloride (Normal Saline -) 1,000 mls @ 75 mls/hr IV ASDIR [facility] Last Admin: 05/11/17 22:14 Dose: 75 mls/hr Montelukast Sodium (Singulair -) 10 mg PO [facility] Last Admin: 05/11/17 22:15 Dose: 10 mg Pantoprazole Sodium (Protonix -) 40 mg PO DAILY [facility] Last Admin: 05/11/17 10:20 Dose: 40 mg Prednisone (Deltasone -) 60 mg PO DAILY [facility] Last Admin: 05/11/17 10:20 Dose: 60 mg Prochlorperazine Edisylate (Compazine Injection -) 5 mg IM Q4H PRN PRN Reason: NAUSEA AND/OR VOMITING Sitagliptin Phosphate (Januvia -) 100 mg PO DAILY@0700 [facility] Last Admin: 05/12/17 06:16 Dose: 100 mg Verapamil HCl (Calan Sr -) 240 mg PO DAILY [facility] Last Admin: 05/11/17 10:19 Dose: 240 mg A/P Acute on Chronic Hypoxic Respiratory Failure Metastatic Lung Ca End Stage COPD r/o Pneumonia - complete antibiotics - prednisone taper - inhaled bronchodilators - O2 to keep Spo2 >90% - DVT prophylaxis
[2017-05-12] MEDS: ALBUTEROL SO4 2.5/IPRATROPIUM 0.5 INH SOL 3 ML VIAL.NEB. NEB PRN (11:03)
[2017-05-12] MEDS: VERAPAMIL HCL 240 MG E.R. TABLET (FP) PO SCH (11:29)
[2017-05-12] MEDS: PANTOPRAZOLE 40 MG TABLET (FP) PO SCH (11:29)
[2017-05-12] MEDS: LEVOFLOXACIN 250 MG IVPB 250 MG/50 ML MG IVPB SCH (11:29)
[2017-05-12] MEDS: FOLIC ACID 1 MG TABLET (FP) PO SCH (11:29)
[2017-05-12] MEDS: GABAPENTIN 300 MG CAPSULE (FP) PO SCH (11:29)
[2017-05-12] MEDS: ASPIRIN 81 MG CHEWABLE TABLETS PO SCH (11:29)
[2017-05-12] MEDS: predniSONE 20 MG TABLET (UD) PO SCH (11:29)
[2017-05-12] MEDS: SODIUM CHLORIDE 1,000 ML IV SCH (11:30)
[2017-05-12] MEDS: BUDESONIDE/FORMETEROL FUMARATE 160/4.5 mcg INHALER IH SCH ×2 (11:31→21:39)
--- NOTE | 2017-05-12 13:57 | PN ---
Teaching Attending Note Name of Resident: Tyrell Francois ATTENDING PHYSICIAN STATEMENT Time of evaluation: 11:30 AM I saw and evaluated the patient. I reviewed the resident's note and discussed the case with the resident. I agree with the resident's findings and plan as documented. SUBJECTIVE: patient seen and examined, Overall feels great. no new complaints. OBJECTIVE: Vital Signs Period Temp Pulse Resp BP Sys/Soto Pulse Ox Last 24 Hr 98.1 F-98.4 F 59-79 18-18 118-141/72-83 100 Intake & Output 05/09/17 05/10/17 05/11/17 05/12/17 23:59 23:59 23:59 23:59 Intake Total 1625 1290 1794 1100 Balance 1625 1290 1794 1100 general: sitting in bed in no acute distress Chest: right basilar rales, good air entry, no expiratory wheezing appreciated Abdomen: soft, NT extremities: no edema Home Medication List Medication Instructions Recorded Confirmed Type Albuterol Sulfate Inhaler - 1 - 2 inh PO Q4H 09/26/14 05/07/17 History [Ventolin HFA Inhaler -] Sitagliptin Phosphate [Januvia] 100 mg PO DAILY 09/26/14 05/07/17 History Verapamil HCl 240 mg PO DAILY 09/26/14 05/07/17 History Acetaminophen W/ Codeine #3 1 tab PO PRN 10/10/16 05/07/17 History [Tylenol # 3 -] Aspirin [ASA -] 81 mg PO DAILY 10/10/16 05/07/17 History Gabapentin 300 mg PO DAILY 10/10/16 05/07/17 History Montelukast Na [Singulair -] 10 mg PO HS 10/10/16 05/07/17 History Folic Acid 1 mg PO DAILY 05/07/17 05/07/17 History Salmeterol/Fluticasone [Advair 1 inh BID 05/07/17 05/07/17 History 250Mcg/50Mcg -] Active Medications Generic Name Dose Route Start Last Admin Trade Name Freq PRN Reason Stop Dose Admin Albuterol Sulfate 2 puff 05/07/17 03:30 Ventolin Hfa Inhaler - IH Q4H PRN SHORT OF BREATH/WHEEZING Albuterol/Ipratropium 1 amp 05/11/17 08:27 05/12/17 11:03 Duoneb - NEB 1 amp Q4H PRN Administration SHORTNESS OF BREATH Aspirin 81 mg 05/07/17 10:00 05/12/17 11:29 Asa - PO 81 mg DAILY SAEED Administration Atorvastatin Calcium 10 mg 05/07/17 22:00 05/11/17 22:15 Lipitor - PO 10 mg HS SAEED Administration Budesonide/Formoterol Fumarate 2 puff 05/07/17 10:00 05/12/17 11:31 Symbicort 160/4.5mcg - IH 2 puff BID SAEED Administration Folic Acid 1 mg 05/09/17 10:00 05/12/17 11:29 Folic Acid - PO 1 mg DAILY SAEED Administration Gabapentin 300 mg 05/07/17 10:00 05/12/17 11:29 Neurontin - PO 300 mg DAILY SAEED Administration Heparin Sodium (Porcine) 5,000 unit 05/07/17 06:00 05/11/17 14:27 Heparin - SQ Not Given TID SAEED Levofloxacin 250 mg in 50 mls @ 100 mls/hr 05/08/17 10:00 05/12/17 11:29 Levaquin 250 Mg Premixed Ivpb - IVPB 100 mls/hr DAILY SAEED Administration Montelukast Sodium 10 mg 05/07/17 22:00 05/11/17 22:15 Singulair - PO 10 mg HS SAEED Administration Pantoprazole Sodium 40 mg 05/08/17 10:00 05/12/17 11:29 Protonix - PO 40 mg DAILY SAEED Administration Prednisone 60 mg 05/10/17 10:00 05/12/17 11:29 Deltasone - PO 60 mg DAILY SAEED Administration Prochlorperazine Edisylate 5 mg 05/07/17 13:18 Compazine Injection - IM Q4H PRN NAUSEA AND/OR VOMITING Sitagliptin Phosphate 100 mg 05/08/17 07:00 05/12/17 06:16 Januvia - PO 100 mg DAILY@0700 SAEED Administration Verapamil HCl 240 mg 05/07/17 10:00 05/12/17 11:29 Calan Sr - PO 240 mg DAILY SAEED Administration Laboratory Results - last 24 hr 05/11/17 05/11/17 05/12/17 16:54 21:38 05:23 WBC RBC Hgb Hct MCV MCH MCHC RDW Plt Count MPV Neutrophils % Lymphocytes % POC Glucometer 145 141 103 05/12/17 06:00 WBC 4.7 D RBC 4.18 Hgb 10.5 L Hct 34.3 MCV 82.1 MCH 25.2 L MCHC 30.7 L RDW 16.5 H Plt Count 93 L MPV 9.0 Neutrophils % No Result Required. Lymphocytes % No Result Required. POC Glucometer Microbiology 05/07/17 01:08 Blood - Peripheral Venous Blood Culture - Final NO GROWTH AFTER 5 DAYS INCUBATION 05/07/17 01:08 Blood - Peripheral Venous Blood Culture - Final NO GROWTH AFTER 5 DAYS INCUBATION 05/08/17 09:15 Urine For Antigen Detection Legionella Antigen - Final 05/08/17 09:15 Urine For Antigen Detection Streptococcus pneumoniae Antigen (M - Final 05/07/17 07:55 Nasopharyngeal Swab Influenza Types A,B Antigen (ODESSA) - Final 05/07/17 07:55 Nasopharyngeal Swab - Final ASSESSMENT AND PLAN: 67 yof with pMhx of Lung Ca s/p chemoradiation, Mets to brain, currently on ? immunotherapy, COPD on 2L home oxygen admitted with dsypnea/hypoxia -Acute COPD exacerbation -Acute bronchitis vs early pneumonia -Neutropenia -Hyperkalemia -HTN -NIDDM Plan: doing well. Discussed with Dr. Contreras, plan for d/c on prednisone taper, levaquin for 2 more days and outpatient CXR in 1 week and further plan for thoracentesis vs pleurex accordingly. Neutropenia resolved. CBC follow up outpatient. PT eval noted, rolling walker and home services arranged. patient at baseline. Discussed in detail about medications and follow up instructions. d/c home with services today.
[2017-05-12] MEDS ORDERED: guaiFENesin/D-METHORPHAN HB 10 ML UNIT-DOSE CUPS PO PRN (14:28)
[2017-05-12 14:34] LABS: ANISOCYTOSIS 1+; MACROCYTOSIS 0; OVALOCYTE 1+; PLATELET ESTIMATE DECREASED
[2017-05-12] MEDS ORDERED: ALBUTEROL SO4 2.5/IPRATROPIUM 0.5 INH SOL 3 ML VIAL.NEB. NEB ONE (15:17)
[2017-05-12] MEDS: methylPREDNISolone NA SUCC 40 MG/1 ML VIAL IVPUSH SCH (21:38)
[2017-05-12] MEDS: MONTELUKAST NA 10 MG TABLET PO SCH (21:38)
[2017-05-12] MEDS: ATORVASTATIN CA 10 MG TABLET (FP) PO SCH (21:38)
--- NOTE | 2017-05-13 04:52 | PN ---
Physical Exam: SUBJECTIVE: Patient seen and examined by me - No major events overnight. No SOB or respiratory distress, breathing well. OBJECTIVE: Vital Signs Intake & Output 05/10/17 05/11/17 05/12/17 05/13/17 23:59 23:59 23:59 23:59 Intake Total 1290 1794 0 Balance 1290 1794 0 Period Temp Pulse Resp BP Sys/Soto Pulse Ox Last 24 Hr 97.9 F-98.4 F 61-95 18-18 118-141/65-85 98-100 GENERAL: Elderly woman in NAD. The patient is awake, alert, and fully oriented. HEAD: Normal with no signs of trauma. EYES: L eye poorly reactive to light. extraocular movements intact, sclera anicteric, conjunctiva clear. No ptosis. ENT: Poor dentition. Ears normal, nares patent, oropharynx clear without exudates, moist mucous membranes. NECK: Trachea midline, full range of motion, supple. LUNGS: BL expiratory wheeze. Upper airway congestion, coarse breath sounds. Decreased breath sounds at RLL. HEART: 2/6 diastolic murmur at LUSB. Regular rate and rhythm, S1, S2 without murmur, rub or gallop. ABDOMEN: Soft, ND, NT. No guarding, no rebound, no masses, neg murphys EXTREMITIES: 2+ pulses, warm, well-perfused, no edema. NEUROLOGICAL: Cranial nerves II through XII grossly intact. Normal speech, gait not observed. PSYCH: Normal mood, normal affect. SKIN: Warm, dry, normal turgor, no rashes or lesions noted Laboratory Results - last 24 hr CBC, BMP 05/12/17 06:00 05/10/17 07:30 05/12/17 05/12/17 05/12/17 05:23 06:00 17:34 WBC 4.7 D RBC 4.18 Hgb 10.5 L Hct 34.3 MCV 82.1 MCH 25.2 L MCHC 30.7 L RDW 16.5 H Plt Count 93 L MPV 9.0 Neutrophils % No Result Required. Neutrophils % (Manual) 43.9 Band Neutrophils % 0.0 Lymphocytes % No Result Required. Lymphocytes % (Manual) 12.2 Monocytes % (Manual) 39 H* Eosinophils % (Manual) 0.0 Basophils % (Manual) 0.0 Myelocytes % (Man) 0 D Metamyelocytes 0 Hypochromia 0 Platelet Estimate Decreased Platelet Comment Present Polychromasia 0 Poikilocytosis 1+ Anisocytosis 1+ Microcytosis 0 Macrocytosis 0 Ovalocytes 1+ POC Glucometer 103 164 05/12/17 21:34 WBC RBC Hgb Hct MCV MCH MCHC RDW Plt Count MPV Neutrophils % Neutrophils % (Manual) Band Neutrophils % Lymphocytes % Lymphocytes % (Manual) Monocytes % (Manual) Eosinophils % (Manual) Basophils % (Manual) Myelocytes % (Man) Metamyelocytes Hypochromia Platelet Estimate Platelet Comment Polychromasia Poikilocytosis Anisocytosis Microcytosis Macrocytosis Ovalocytes POC Glucometer 174 Active Medications Generic Name Dose Route Start Last Admin Trade Name Freq PRN Reason Stop Dose Admin Albuterol Sulfate 2 puff 05/07/17 03:30 Ventolin Hfa Inhaler - IH Q4H PRN SHORT OF BREATH/WHEEZING Albuterol/Ipratropium 1 amp 05/11/17 08:27 05/12/17 11:03 Duoneb - NEB 1 amp Q4H PRN Administration SHORTNESS OF BREATH Aspirin 81 mg 05/07/17 10:00 05/12/17 11:29 Asa - PO 81 mg DAILY SAEED Administration Atorvastatin Calcium 10 mg 05/07/17 22:00 05/12/17 21:38 Lipitor - PO 10 mg HS SAEED Administration Budesonide/Formoterol Fumarate 2 puff 05/07/17 10:00 05/12/17 21:39 Symbicort 160/4.5mcg - IH 2 puff BID SAEED Administration Folic Acid 1 mg 05/09/17 10:00 05/12/17 11:29 Folic Acid - PO 1 mg DAILY SAEED Administration Gabapentin 300 mg 05/07/17 10:00 05/12/17 11:29 Neurontin - PO 300 mg DAILY SAEED Administration Guaifenesin 10 ml 05/12/17 14:28 Robitussin Dm - PO Q8H PRN COUGH Heparin Sodium (Porcine) 5,000 unit 05/07/17 06:00 05/11/17 14:27 Heparin - SQ Not Given TID SAEED Levofloxacin 250 mg in 50 mls @ 100 mls/hr 05/08/17 10:00 05/12/17 11:29 Levaquin 250 Mg Premixed Ivpb - IVPB 100 mls/hr DAILY SAEED Administration Methylprednisolone Sodium Succinate 40 mg 05/12/17 22:00 05/12/17 21:38 Solu-Medrol - IVPUSH 40 mg BID SAEED Administration Montelukast Sodium 10 mg 05/07/17 22:00 05/12/17 21:38 Singulair - PO 10 mg HS SAEED Administration Pantoprazole Sodium 40 mg 05/08/17 10:00 05/12/17 11:29 Protonix - PO 40 mg DAILY SAEED Administration Prochlorperazine Edisylate 5 mg 05/07/17 13:18 Compazine Injection - IM Q4H PRN NAUSEA AND/OR VOMITING Sitagliptin Phosphate 100 mg 05/08/17 07:00 05/12/17 06:16 Januvia - PO 100 mg DAILY@0700 SAEED Administration Verapamil HCl 240 mg 05/07/17 10:00 05/12/17 11:29 Calan Sr - PO 240 mg DAILY SAEED Administration Microbiology 05/07/17 01:08 Blood - Peripheral Venous Blood Culture - Final NO GROWTH AFTER 5 DAYS INCUBATION 05/07/17 01:08 Blood - Peripheral Venous Blood Culture - Final NO GROWTH AFTER 5 DAYS INCUBATION 05/08/17 09:15 Urine For Antigen Detection Legionella Antigen - Final 05/08/17 09:15 Urine For Antigen Detection Streptococcus pneumoniae Antigen (M - Final 05/07/17 07:55 Nasopharyngeal Swab Influenza Types A,B Antigen (ODESSA) - Final 05/07/17 07:55 Nasopharyngeal Swab - Final CT Chest 05/07 - IMPRESSION: Interval slightly better aeration of the left lung with persistent interstitial and nodular opacities and masslike density in the left lower lobe, anteriorly measuring 2.1 cm without gross interval change. Masslike density in the right upper lobe, anteriorly inseparable from the right superior mediastinum and with with tiny cystic changes again seen without gross interval change. Interval decrease right pleural effusion that remains moderate with a triangular-shaped low-attenuation density in the right lung base likely representing loculated fluid. Continued close follow-up is recommended. CXR 05/06 - Suspected right lung mass and pleural effusion with diffuse nodularity and interstitial lung disease. Clinical correlation and follow-up recommended. Please see above discussion CXR 05/11 - Impression: Worse. Progressive right pulmonary and pleural changes with right mass and increased interstitial and nodular changes left lung. CXR 05/12: Equivocal change in imaging, possibly dependent on positioning. Chronic R pleural effusion. BL diffuse airspace opacities. ASSESSMENT/PLAN: 67 yo F w/ PMH recurrent R Lung CA w/ metastatic breast Ca, COPD (2L, satting in 97%), chronic pleural effusions, asthma who presents to ED w/ malaise, body aches and generalized fatigue after chemo tx on . #COPD exacerbation - secondary to suspected PNA; increased wheezing today, more SOB in PM; d/c cancelled - Duonebs QID, Ventolin PRN - Home O2 2l; maintain sat above 97% - Switch from PO prednisone to medrol 40 BID today for increased wheezing - will cont Singulair, Symbicort per home meds - Tylenol for pain, fever - Consider inpt thoracentesis for R pleural effusion - pulm consulted, recs appreciated - compazine for N/V - Robitussin for cough #Neutropenia - continues to improve; 4.7 today; resolved - Plan for two more days of levaquin for abx coverage; may expand abx coverage if worsening infectious symptoms - No longer neutropenic; afebrile, non-infectious - neutropenia secondary to chemotx - Folic acid #Bronchitis vs. PNA - afebrile, WBC correct - Urine ags neg, flu neg - trend fever, wbc - levaquin for 2 more days (Day 5/7) - CXR with no focal infiltrate today #Lung CA - pleural mets 2/2 lung ca per pulm - Inpt tap vs. pleurex catheter; discussed with pulm, IR - pulm, heme/onc following - outpt management w/ Dr. Thompson #Hyperkalemia - Resolved - Daily BMPs #HTN - c/w Verapamil - holding K-sparing HTN meds due to hyperK #NIDDM - januvia per home meds - Neurontin for neuropathy - ISS, BGM #HLD -home statin FEN - PO hydration - Daily BMPs - low K diet, diabetic PPX HSQ c/w scds Plan discussed with Dr. Bharathi Francois, PGY1
[2017-05-13] MEDS: sitaGLIPtin PHOSPHATE 50 MG TABLET PO SCH (06:19)
[2017-05-13] MEDS: ALBUTEROL SO4 2.5/IPRATROPIUM 0.5 INH SOL 3 ML VIAL.NEB. NEB PRN (07:35)
--- NOTE | 2017-05-13 07:52 | MSN ---
Progress Note (short form) - Note Progress Note: Subjective: Patient was seen this morning and has no complaints. She is not SOB at rest but states that she gets SOB when walking around. She notes that this is her baseline. Objective: Last Vital Signs Temp Pulse Resp BP Pulse Ox 98 F 62 18 118/65 98 05/12/17 22:00 05/12/17 22:00 05/12/17 22:00 05/12/17 22:00 05/12/17 21:00 General: Patient is a pleasant woman, in no acute distress. HEENT: 2 L nasal cannula in place. PERRLA on the right. Pupils unresponsive on the left. trachea midline. Heart: RRR, difficult to hear due to wheezing. Lungs: poor airflow B/L, wheezing appreciated throughout. Coarse breaths with diminished sounds on the right lower lobe. Abdomen: soft, non-tender, normoactive bowel sounds x4 Extremities: 2+ pulses B/L on UE and LE, no edema noted. CBC, BMP 05/12/17 06:00 05/10/17 07:30 Imaging: chest x-ray 05/12/17: no change appreciated chest x-ray 05/11/17: progressive right pulm & pleural changes with right mass. increased interstitial nodular changes of left lung. chest CT 05/07/17: Interval slightly better aeration of the left lung with persistent interstitial and nodular opacities and masslike density in the left lower lobe, anteriorly measuring 2.1 cm without gross interval change. Mass- like density in the right upper lobe, anteriorly inseparable from the right superior mediastinum and with with tiny cystic changes again seen without gross interval change. Interval decrease right pleural effusion that remains moderate with a triangular-shaped low-attenuation density in the right lung base likely representing loculated fluid. EKG on 05/06/17: normal sinus rhythm, possible left atrial enlargement. Xray on 05/06/17: Suspected right lung mass and pleural effusion with diffuse nodularity and interstitial lung disease. Clinical correlation and follow-up recommended. Please see above discussion. Assessment/ Plan: 67 yo F with hx of lung cancer with brain mets s/p chemoradiation, COPD on 2L O2 at home who presented with hypoxia/dyspnea likely due to acute on chronic hypoxemic respiratory failure. # acute on chronic hypoxemic respiratory failure -- end stage COPD - on 2K O2 nasal cannula- setting well - ventolin 2 puff q4h prn - duoneb qid - symbicort 2 puff BID - montelukast (singulair) 10mg qhs - continue levofloxacin (levaquin) 250mg. 1 more day coverage. - discharge on prednisone 40mg daily with taper - vice president of procurement: Dr. Contreras # leukopenia/ neutropenia - secondary to cancer therapy -- resolved. - continue home medication of folate - neutropenic precautions removed. # Hyperkalemia -monitor BMP - hold spironolactone and losartan, f/u with PCP to re-start # HTN - Verapamil HCl (Calan Sr -) 240 mg PO DAILY SAEED # Hyperlipidimia - Atorvastatin Calcium (Lipitor -) 10 mg PO HS SAEED # NIDDM - continue home medication of Sitagliptin Phosphate (Januvia -) 100 mg PO DAILY @0700 SAEED - Insulin sliding scale - monitor blood glucose # chronic intermittent back pain - home med: Gabapentin (Neurontin -) 300 mg PO DAILY SAEED # hx of lung adenocarcinoma - stable to mildly progressive dz - spoke to Dr. Thompson: patient was diagnosed with stage III adenocarcinoma in early 2014 and was treated with chemo + radiation. On Jan 2015, patient had metastasis to the brain and was managed with whole brain radiation. On July 2016, patient had 6 courses immunotherapy with Nivolumab and completed them. For the past 6 months, patient has been treated with Alimta q2-4 weeks. - continue outpt management # FEN - fluid: Sodium Chloride (Normal Saline -) 1,000 mls @ 50 mls/hr IV ASDIR SAEED - electrolyte: hyperkalemia - continue to monitor - nutrition: PO
[2017-05-13 08:43] LABS: HEMATOCRIT 35.9 % (32.4-45.2); HEMOGLOBIN 10.9 GM/dL (10.7-15.3); MCH 25.1 pg (25.7-33.7); MCHC 30.4 g/dl (32.0-36.0); MEAN CELL VOLUME 82.5 fl (80-96); MEAN PLT VOLUME 9.3 fl (7.5-11.1); PLATELET COUNT 115 K/MM3 (134-434); RBC 4.35 M/mm3 (3.60-5.2); RDW 16.7 % (11.6-15.6); WHITE BLOOD COUNT 5.7 K/mm3 (4.0-10.0)
[2017-05-13 09:31] LABS: CHLORIDE 107 mmol/L (98-107); SODIUM 143 mmol/L (136-145)
[2017-05-13 09:40] LABS: ANION GAP 8 (8-16); BLOOD UREA NITROGEN 24 mg/dL (7-18); CALCIUM 7.9 mg/dL (8.5-10.1); CO2 28 mmol/L (21-32); CREATININE 0.9 mg/dL (0.55-1.02); GLUCOSE,RANDOM 123 mg/dL (74-106)
[2017-05-13] MEDS: LEVOFLOXACIN 250 MG IVPB 250 MG/50 ML MG IVPB SCH (09:43)
[2017-05-13] MEDS: FOLIC ACID 1 MG TABLET (FP) PO SCH (09:43)
[2017-05-13] MEDS: GABAPENTIN 300 MG CAPSULE (FP) PO SCH (09:43)
[2017-05-13] MEDS: ASPIRIN 81 MG CHEWABLE TABLETS PO SCH (09:43)
[2017-05-13] MEDS: VERAPAMIL HCL 240 MG E.R. TABLET (FP) PO SCH (09:43)
[2017-05-13] MEDS: methylPREDNISolone NA SUCC 40 MG/1 ML VIAL IVPUSH SCH (09:44)
[2017-05-13] MEDS: PANTOPRAZOLE 40 MG TABLET (FP) PO SCH (09:46)
--- NOTE | 2017-05-13 10:30 | PN ---
Progress Note (short form) - Note Progress Note: PULMONARY States she feels good today. +nonproductive cough. Hasn't ambulated yet today. No fevers or chills. Last Vital Signs Temp Pulse Resp BP Pulse Ox 98 F 62 18 118/65 98 05/12/17 22:00 05/12/17 22:00 05/12/17 22:00 05/12/17 22:00 05/12/17 21:00 Gen: NAD in chair Heart: RRR Lung: scattered rhonchi, wheezes Abd: soft, nontender Ext: no edema CBC, BMP 05/13/17 07:30 05/13/17 07:30 Active Medications Albuterol Sulfate (Ventolin Hfa Inhaler -) 2 puff IH Q4H PRN PRN Reason: SHORT OF BREATH/WHEEZING Albuterol/Ipratropium (Duoneb -) 1 amp NEB Q4H PRN PRN Reason: SHORTNESS OF BREATH Last Admin: 05/13/17 07:35 Dose: 1 amp Aspirin (Asa -) 81 mg PO DAILY [facility] Last Admin: 05/13/17 09:43 Dose: 81 mg Atorvastatin Calcium (Lipitor -) 10 mg PO HS [facility] Last Admin: 05/12/17 21:38 Dose: 10 mg Budesonide/Formoterol Fumarate (Symbicort 160/4.5mcg -) 2 puff IH BID [facility] Last Admin: 05/12/17 21:39 Dose: 2 puff Folic Acid (Folic Acid -) 1 mg PO DAILY [facility] Last Admin: 05/13/17 09:43 Dose: 1 mg Gabapentin (Neurontin -) 300 mg PO DAILY [facility] Last Admin: 05/13/17 09:43 Dose: 300 mg Guaifenesin (Robitussin Dm -) 10 ml PO Q8H PRN PRN Reason: COUGH Last Admin: 05/13/17 09:44 Dose: 10 ml Heparin Sodium (Porcine) (Heparin -) 5,000 unit SQ TID [facility] Last Admin: 05/11/17 14:27 Dose: Not Given Levofloxacin (Levaquin 250 Mg Premixed Ivpb -) 250 mg in 50 mls @ 100 mls/hr IVPB DAILY [facility] Last Admin: 05/13/17 09:43 Dose: 100 mls/hr Methylprednisolone Sodium Succinate (Solu-Medrol -) 40 mg IVPUSH BID [facility] Last Admin: 05/13/17 09:44 Dose: 40 mg Montelukast Sodium (Singulair -) 10 mg PO HS [facility] Last Admin: 05/12/17 21:38 Dose: 10 mg Pantoprazole Sodium (Protonix -) 40 mg PO DAILY [facility] Last Admin: 05/13/17 09:46 Dose: 40 mg Prochlorperazine Edisylate (Compazine Injection -) 5 mg IM Q4H PRN PRN Reason: NAUSEA AND/OR VOMITING Sitagliptin Phosphate (Januvia -) 100 mg PO DAILY@0700 [facility] Last Admin: 05/13/17 06:19 Dose: 100 mg Verapamil HCl (Calan Sr -) 240 mg PO DAILY [facility] Last Admin: 05/13/17 09:43 Dose: 240 mg A/P Acute on Chronic Hypoxic Respiratory Failure Metastatic Lung Ca End Stage COPD r/o Pneumonia - complete antibiotics - can change steroids to PO prednisone 40mg daily and taper as outpt - inhaled bronchodilators - O2 to keep Spo2 >90% - DVT prophylaxis - outpt f/u of chest imaging
[2017-05-13] MEDS: BUDESONIDE/FORMETEROL FUMARATE 160/4.5 mcg INHALER IH SCH (10:54)
[2017-05-13] MEDS: HEPARIN NA (PORCINE) 5,000 UNITS/ML 1ML VIAL SQ SCH (14:35)
[2017-05-13 14:58] VITALS: PULSE 73
--- NOTE | 2017-05-13 15:54 | DS ---
Physical Exam: SUBJECTIVE: Patient seen and examined by me this AM - No major events overnight. Pt states breathing improved slightly, close to home baseline. Still with productive cough, however improved per patient. Denies any fever/chills, FARIAS/dizziness, CP, SOB, N/V, Abdominal pain, dysuria, diarrhea, constipation. Amenable to discharge home today with outpt follow-up with Dr. Contreras. OBJECTIVE: Vital Signs Intake & Output 05/10/17 05/11/17 05/12/17 05/13/17 23:59 23:59 23:59 23:59 Intake Total 1290 1794 2120 1830 Balance 1290 1794 2120 1830 Period Temp Pulse Resp BP Sys/Soto Pulse Ox Last 24 Hr 98 F-98.4 F 62-95 18-18 118-131/65-85 98-98 PHYSICAL EXAM GENERAL: Elderly woman, lying in bed. The patient is awake, alert, and fully oriented. HEAD: Normal with no signs of trauma. EYES: L eye poorly reactive to light. extraocular movements intact, sclera anicteric, conjunctiva clear. No ptosis. ENT: Poor dentition. Ears normal, nares patent, oropharynx clear without exudates, moist mucous membranes. NECK: Trachea midline, full range of motion, supple. LUNGS: BL expiratory wheeze. Upper airway congestion, coarse breath sounds. Decreased breath sounds at R lung base. HEART: 2/6 diastolic murmur at RUSB and LUSB. Regular rate and rhythm, S1, S2 without murmur, rub or gallop. ABDOMEN: Soft, ND, NT. No guarding, no rebound, no masses, neg murphys EXTREMITIES: 2+ pulses, warm, well-perfused, no edema. NEUROLOGICAL: Cranial nerves II through XII grossly intact. Normal speech, gait not observed. PSYCH: Normal mood, normal affect. SKIN: Warm, dry, normal turgor, no rashes or lesions noted LABS Laboratory Results - last 24 hr CBC, BMP 05/13/17 07:30 05/13/17 07:30 05/12/17 05/12/17 05/13/17 17:34 21:34 06:19 WBC RBC Hgb Hct MCV MCH MCHC RDW Plt Count MPV Sodium Potassium Chloride Carbon Dioxide Anion Gap BUN Creatinine POC Glucometer 164 174 121 Random Glucose Calcium 05/13/17 05/13/17 07:30 07:30 WBC 5.7 RBC 4.35 Hgb 10.9 Hct 35.9 MCV 82.5 MCH 25.1 L MCHC 30.4 L RDW 16.7 H Plt Count 115 L D MPV 9.3 Sodium 143 Potassium 5.0 Chloride 107 Carbon Dioxide 28 Anion Gap 8 BUN 24 H Creatinine 0.9 POC Glucometer Random Glucose 123 H Calcium 7.9 L Microbiology 05/07/17 01:08 Blood - Peripheral Venous Blood Culture - Final NO GROWTH AFTER 5 DAYS INCUBATION 05/07/17 01:08 Blood - Peripheral Venous Blood Culture - Final NO GROWTH AFTER 5 DAYS INCUBATION 05/08/17 09:15 Urine For Antigen Detection Legionella Antigen - Final 05/08/17 09:15 Urine For Antigen Detection Streptococcus pneumoniae Antigen (M - Final 05/07/17 07:55 Nasopharyngeal Swab Influenza Types A,B Antigen (ODESSA) - Final 05/07/17 07:55 Nasopharyngeal Swab - Final EKG 05/07 - NSR, rate of 71, QTC 430, no acute ischemic changes Imaging: CT Chest 05/07 - IMPRESSION: Interval slightly better aeration of the left lung with persistent interstitial and nodular opacities and masslike density in the left lower lobe, anteriorly measuring 2.1 cm without gross interval change. Masslike density in the right upper lobe, anteriorly inseparable from the right superior mediastinum and with with tiny cystic changes again seen without gross interval change. Interval decrease right pleural effusion that remains moderate with a triangular-shaped low-attenuation density in the right lung base likely representing loculated fluid. Continued close follow-up is recommended. CXR 05/06 - Suspected right lung mass and pleural effusion with diffuse nodularity and interstitial lung disease. Clinical correlation and follow-up recommended. Please see above discussion CXR 05/11 - Impression: Worse. Progressive right pulmonary and pleural changes with right mass and increased interstitial and nodular changes left lung. CXR 05/12: Equivocal change in imaging, possibly dependent on positioning. Chronic R pleural effusion. BL diffuse airspace opacities. Consults: Pulmonology - Seen by Dr. Saleh and team Plan on discharge per pulmonology: - complete antibiotics - can change steroids to PO prednisone 40mg daily and taper as outpt - inhaled bronchodilators - O2 to keep Spo2 >90% - DVT prophylaxis - outpt f/u of chest imaging HOSPITAL COURSE: 67 yo F w/ PMH recurrent R Lung CA w/ metastatic breast Ca, COPD (2L, satting in 97%), chronic pleural effusions, asthma who presented to ED w/ malaise, body aches and generalized fatigue after chemo tx on 05/07. Pt labs in ED notable for WBC 3.1, BUN 37, Rn Digestive 1.6, glc 142, AST 43, AlkP 160, BNP 159. CT chest on presentation notable for BL masslike densities and R pleural effusion. Pt treated as COPD exacerbation secondary to PNA, started on Duonebs q4h, solumedrol 40mg q8h, 7 day course of levaquin and home singulair/symbicort w/ O2 support as needed. Initially plan for thoracentesis for pleural fluid, however IR rec to forego tap given limited fluid/poor access/loculation. Pt WBC count steadily downtrended over next two days 3.1 -> 1.5, started on neutropenic precautions. Pt oncologist Dr. Thompson contacted regarding neutropenia, endorsed it was a normal side effect of chemotx. Pt w/ progressive resolution of neutropenia over next few days, afebrile and hemodynamically stable with improving respiratory status. Pt slowly tapered off solumedrol per pulm recs and switched to PO prednisone on 05/10. Hospital course notable for mild asymptomatic hyperkalemia during admission, with 5.3 on admission; pt home losartan and spironolactone held as a result. Given clinical improvement, plan to discharge home with outpt f/u with Dr. Contreras on 05/12, however in PM pt with increased wheezing, SOB with walking. D/c delayed and pt given IV medrol 40mg BID for 24 hours. Pt states breathing improved overnight on 05/13, although still with minimally productive cough. Per pulm recs, pt cleared for discharge on oral prednisone taper and home O2. Pt discharge 05/13 PM w/ plan for follow- up with PCP and Dr. Contreras in one week for further outpt management. Pt breathing improved and cleared for discharge. Date of Admission:05/07/17 Date of Discharge: 05/13/17 Pt medically stable and cleared for discharge home with outpt f/u with Dr. Contreras in clinic in one week, in addition to pt's own PCP. Pt counseled on discharge plan and all questions answered. Tyrell Francois, PGY1 Minutes to complete discharge: 35 Discharge Summary Reason For Visit: SHORTNESS OF BREATH,PNEUMONIA Current Active Problems Acute and chronic respiratory failure with hypoxia (Acute) Metastatic lung carcinoma (Acute) Pneumonia (Acute) SOB (shortness of breath) (Acute) Condition: Stable - Instructions Diet, Activity, Other Instructions: During your stay at [facility], you were treated for COPD exacerbation: Medications: Please continue taking the following medication as directed Levaquin (250 mg), once per day by mouth, for one more days (05/14) Prednisone taper as follow: 50 mg daily for 4 days on 05/14, 05/15, 05/16, 05/17 40 mg daily for next 4 days on 05/18, 05/19, 05/20 ,05/21 30 mg daily for next 4 days on 05/22, 05/23, 05/24, 05/25 20 mg daily for next 4 days on 05/26, 05/27, 05/28, 05/29, 10 mg daily for next 4 days on 05/30, 05/31, 06/01, 06/02 then off We have been holding the following home hypertension medications below due to high blood potassium levels. DO NOT continue taking the following medications: Losartan 25mg PO Spironolactone 25mg PO Please continue to take all other prior home medication as previously described. Please continue to take your home oxygen (2L) as previously prescribed. DO NOT smoke as oxygen is flammable and can ignite, causing serious fernandez. Follow-ups: Please schedule an appointment with your primary care provider in one week. Please inform your primary care provider of the above changes to your medication regimen. During your stay, you were seen by your air antisubmarine officer, Dr. Contreras. Please follow- up with him in his office in one week for further management of your pulmonary medication. His contact information has been provided. You will need a follow up Chest xray in 1 week and further decision about the lung fluid will be taken accordingly. CBC (blood counts) in 1 week with your doctor to monitor your blood counts, results to Dr. Thompson. BMP (blood test for potassium and kidneys) in 1 week with your doctor. Diet: Please adhere to a low potassium diet, as your blood levels of potassium were elevated during your admission. The following are general guidelines for avoiding foods rich in potassium. HOW MUCH POTASSIUM DO I NEED? In general, experts recommend eating a diet that contains at least 4700 mg of potassium per day [1]. However, most people with moderate to severe chronic kidney disease or acute kidney injury should eat less than 2000 mg of potassium per day. People with moderate to severe chronic kidney disease have kidney function (ie, glomerular filtration rate, or "GFR") below 45 mL/min (normal is 100 to 120 mL/min). A registered dietitian or accounting manager controller can help to create a low-potassium meal plan. An example of one such plan includes (table 1 and table 2): Fruit One to three servings of low-potassium fruit per day Vegetables Two to three servings of low-potassium vegetables per day Dairy and calcium rich foods One to two servings of low-potassium choices per day Meat and meat alternatives Three to seven servings of low-potassium choices per day (approximately 15 percent of calories) Grains Four to seven servings of low-potassium grains per day A sample diet plan is provided in the table (table 1). HOW DO I CUT DOWN ON POTASSIUM? Read the food label. Almost all foods contain some potassium, so the mukherjee is to choose foods with a low potassium level, when possible. Measure and be aware of the serving size when calculating the amount of potassium in a food; a large serving of a low-potassium food may have more potassium than a small serving of a food with a high level of potassium. Online or smartphone calculators for potassium can be useful in keeping track. Drain canned vegetables, fruits, and meats before serving. Foods with high levels of potassium Foods that have the highest concentrations of potassium include cantaloupe, all dried fruit and fruit juices, avocadoes, tomatoes, potatoes (plain and sweet), [place] sprouts, milk, yogurt, lentils, and most nuts (except peanuts). The foods in the table have greater than 200 mg of potassium per serving and should be avoided or eaten in very small portions ( table 3). A process of "leaching" can reduce the amount of potassium in some vegetables. ( See 'Reducing potassium levels in vegetables' below.) Foods with low levels of potassium The foods in this table have a low level of potassium (less than 200 mg potassium per serving on average) (table 2). You can eat low-potassium foods regularly, but limit your portion size since potassium can quickly add up if you eat a large portion. Reducing potassium levels in vegetables It is possible to remove some of the potassium in certain vegetables with high potassium levels. Leaching is a process of soaking raw or frozen vegetables in water for at least two hours before cooking to "pull" some of the potassium out of the food and into the water. You should not eat these vegetables frequently because there is still a lot of potassium in the food after leaching. Wash and then cut the raw vegetable into thin slices. Vegetables with a skin (eg , potatoes, carrots, beets, rutabagas) should be peeled before slicing. Rinse the cut vegetables in warm water. Soak the vegetables for at least two hours or overnight. Use a large amount of unsalted warm water (approximately 10 parts water to 1 part vegetables). If possible, change the water every four hours. Drain the soaking water. Rinse the vegetables again with warm water. Cook vegetables as desired, using a large amount of unsalted water ( approximately 5 parts water to 1 part vegetables). Drain the cooking water. Please check your blood pressure frequently every day at home. If your systolic BP (upper BP) is persistently greater than 135, or < 100 or any dizziness, please contact your primary care provider for guidance on restarting your home blood pressure medication. You were evaluated by physical therapy and recommend rolling walker and home therapy. Home therapy and visiting nurses will be arranged. Recommend to monitor your blood sugars while on prednisone. They have been stable in the hospital. Please return to the hospital if you experience any of the following symptoms or develop any new or concerning symptoms: - Severe shortness of breath - Persistent wheezing - Chest pain - Fever >102 Referrals: Salvador Contreras MD [Staff Physician] - 1 Week Jesus Orellana [Primary Care Provider] - 1 Week Disposition: VNS/HOME HEALTH CARE - Home Medications Comprehensive Discharge Medication List: Ambulatory Orders Albuterol Sulfate Inhaler - [Ventolin HFA Inhaler -] 1 - 2 inh PO Q4H 09/26/14 Sitagliptin Phosphate [Januvia] 100 mg PO DAILY 09/26/14 Verapamil HCl 240 mg PO DAILY 09/26/14 Acetaminophen W/ Codeine #3 [Tylenol # 3 -] 1 tab PO PRN 06/22/17 Aspirin [ASA -] 81 mg PO DAILY 10/10/16 Gabapentin 300 mg PO DAILY 10/10/16 Montelukast Na [Singulair -] 10 mg PO HS 10/10/16 Folic Acid 1 mg PO DAILY 05/07/17 Salmeterol/Fluticasone [Advair 250Mcg/50Mcg -] 1 inh BID 05/07/17 Atorvastatin Ca [Lipitor] 10 mg PO HS #30 tablet 05/12/17 Guaifenesin Dm [Robitussin Dm -] 10 ml PO Q8H PRN #1 bottle 05/12/17 Levofloxacin [Levaquin -] 250 mg PO DAILY #2 tablet 05/12/17 Prednisone [Deltasone -] 10 mg PO DAILY #66 tablet 05/12/17 Walker [Ultra-Light Rollator] 1 each ASDIR 1 Days #1 each 05/12/17 Miscellaneous Drug Not In Syst [Outpatient Lab Test] 1 each ASDIR #1 misc This patient is new to me today: No Emergency Visit: Yes ED Registration Date: 05/07/17 Care time: The patient presented to the Emergency Department on the above date and was hospitalized for further evaluation of their emergent condition. Critical Care patient: No - Discharge Referral Referred to [facility] Med P.C.: No
--- NOTE | 2017-05-13 16:33 | PN ---
Teaching Attending Note Name of Resident: Tyrell Francois ATTENDING PHYSICIAN STATEMENT I saw and evaluated the patient. I reviewed the resident's note and discussed the case with the resident. I agree with the resident's findings and plan as documented. SUBJECTIVE:asymptomatic. states she felt dyspnic when standing to leave yesterday. no repeat episodes. ambulating to the bathroom without difficulty. denies CP, SOB, fever, chills, N/V/C/D, cough, palpitations OBJECTIVE: Last Vital Signs Temp Pulse Resp BP Pulse Ox 98.1 F 73 18 121/75 98 05/13/17 14:57 05/13/17 14:57 05/13/17 14:57 05/13/17 14:57 05/13/17 09:00 General NAD CV S1 S2 RRR Lungs scattered expiratory wheezing, decreased breath sounds on R base Extremities trace pitting edema ASSESSMENT AND PLAN: 67 yo F with PMH of Lung Ca s/p chemoradiation, Mets to brain, currently on ? immunotherapy, COPD on 2L home oxygen admitted with dsypnea/hypoxia 1. Acute on chronic hypoxic respiraotry failure due to PNA vs COPD exacerbation. clinically improved. saturating 98% on 2L NC. on medrol BID. will go on slow steroid taper. Levaquin day 6. will complete tomorrow. 2. Pleural effusion- high suspicion for malignancy related. unable to perform thoracentesis because it is small and loculated. can f/u with pulmonary in 1 week for re-assessment and determine if would benefit form thoracentesis vs pleurex catheter 3. Hyperkalemia- resolved 4. HTN0- controlled. cont home medications 5. d/c home today with VNS services
[2017-05-13 17:20] VITALS: BP 129/60; TEMP 98.5
[2017-05-14] MEDS ORDERED: LEVOFLOXACIN 250 MG TABLET (FP) PO SCH (10:00)
== END 2017-05-13 19:37 | disposition home health service (06) | DRG 193 ==
LOC: JER 15:21 → JERBED 05-07 00:04 → J8W 05-07 23:17
PROVIDERS: ADMIT Internal Medicine; ATTEND Internal Medicine
DX: J18.9 Pneumonia, unspecified organism (principal); J96.21 Acute and chronic respiratory failure with hypoxia; C34.91 Malignant neoplasm of unspecified part of right bronchus or lung; C79.31 Secondary malignant neoplasm of brain; J44.0 Chronic obstructive pulmonary disease with (acute) lower respiratory infection; J44.1 Chronic obstructive pulmonary disease with (acute) exacerbation; C78.2 Secondary malignant neoplasm of pleura; J90 Pleural effusion, not elsewhere classified; J44.9 Chronic obstructive pulmonary disease, unspecified; Z87.891 Personal history of nicotine dependence; E87.5 Hyperkalemia; E78.5 Hyperlipidemia, unspecified; E11.22 Type 2 diabetes mellitus with diabetic chronic kidney disease; I12.9 Hypertensive chronic kidney disease with stage 1 through stage 4 chronic kidney disease, or unspecified chronic kidney disease; N18.9 Chronic kidney disease, unspecified; D72.819 Decreased white blood cell count, unspecified; D70.1 Agranulocytosis secondary to cancer chemotherapy; T45.1X5A Adverse effect of antineoplastic and immunosuppressive drugs, initial encounter; Z74.01 Bed confinement status; M54.9 Dorsalgia, unspecified
CPT/HCPCS: 36415; 71045-TC; 71046-TC; 71250-TC; 80048; 80053; 82272; 82550; 82962; 83605; 83735; 83880; 84100; 84484; 85025; 85027; 85610; 87040; 87804; 87899; 93005; 93010; 94640; 97116-GP; 97161-GP; 99283-25; J1644